=== PATIENT | female | born 1960 | race Caucasian/White ===

== ENCOUNTER 2020-08-18 12:10 | Outpatient (REF) | payer SELFPAY ==
[2020-08-18 13:08] LABS: Cholesterol 203 mg/dL
== END 2020-08-18 12:11 | disposition home or self-care (01) ==
LOC: HO.LNC 12:10
PROVIDERS: Visit Provider Pathology Anatomic Pathology & Clinical Pathology
DX: Z13.89 Encounter for screening for other disorder (principal)
CPT/HCPCS: 82465

== ENCOUNTER 2020-09-11 08:10 | Outpatient (REF) | payer OTHER, SELFPAY ==
--- NOTE | 2020-09-11 08:20 | MM_ITS ---
EXAMINATION: MM SCREENING DIGITAL BREAST TOMOSYNTHESIS, BILATERAL CLINICAL INFORMATION: Screening. Asymptomatic. The lifetime risk of breast cancer based on the Tyrer-Cuzick Model is 17%. COMPARISON: Mammography: 05/14/2019, 03/12/2018 TECHNIQUE: Digital breast tomosynthesis is performed in both the craniocaudal and mediolateral oblique views along with computer-aided detection (CAD). Synthesized 2D images are generated from the tomosynthesis. FINDINGS: There are scattered areas of fibroglandular density (ACR BI-RADS breast composition Category b). There are no significant masses, abnormal calcifications, or other abnormalities. The skin contours are smooth. No significant changes. MM/MM tomosynthesis screening BI IMPRESSION: No mammographic evidence of malignancy. ASSESSMENT: BI-RADS 1: Negative RECOMMENDATION: Routine annual mammography screening. This patient's information was entered into a reminder system with a target due date for their next mammogram.
== END 2020-09-11 08:11 | disposition home or self-care (01) ==
LOC: HO.MAMMO 08:10
PROVIDERS: PCP Internal Medicine; Visit Provider Internal Medicine
DX: Z12.31 Encounter for screening mammogram for malignant neoplasm of breast (principal)
CPT/HCPCS: 77063; 77067

== ENCOUNTER → 2020-11-11 08:39 | Outpatient (BNVA) | payer OTHER, SELFPAY | PROVIDERS: PCP Internal Medicine; Visit Provider Advanced Practice Midwife ==

== ENCOUNTER 2020-11-27 13:49 | Outpatient (REF) | payer OTHER, SELFPAY | END 2020-11-27 13:50 | disposition home or self-care (01) | LOC: HO.LNP 13:49 | PROVIDERS: PCP Internal Medicine; Visit Provider Obstetrics & Gynecology | DX: L81.9 Disorder of pigmentation, unspecified (principal) | CPT/HCPCS: 56605; 88305 ==

== ENCOUNTER 2020-11-27 14:52 | Outpatient (REF) | payer OTHER, SELFPAY | END 2020-12-01 08:54 | disposition home or self-care (01) | LOC: HO.LAB 14:52 | PROVIDERS: Visit Provider Obstetrics & Gynecology | DX: L81.9 Disorder of pigmentation, unspecified (principal); N90.4 Leukoplakia of vulva | CPT/HCPCS: 88305; 88312 ==

== ENCOUNTER → 2020-12-08 11:44 | Outpatient (BNVA) | payer OTHER, SELFPAY | PROVIDERS: PCP Internal Medicine; Visit Provider Obstetrics & Gynecology | DX: L81.9 Disorder of pigmentation, unspecified (principal); N90.4 Leukoplakia of vulva ==

== ENCOUNTER 2020-12-22 07:41 | Outpatient (REF) | payer OTHER, SELFPAY ==
--- NOTE | ~2020-12-22 | XR_ITS ---
EXAMINATION: XR KNEE, LEFT CLINICAL INFORMATION: Pain COMPARISON: None TECHNIQUE: Standing AP view of both knees and lateral and sunrise view of the left knee of the left knee. FINDINGS: Left: Bone alignment is normal. No fracture or dislocation is seen. There is mild joint space narrowing at the medial femoral tibial joint. There is a moderate to large joint effusion. There is an osteophyte at the quadriceps tendon insertion to the patella. Standing AP view of the right knee demonstrates mild medial femoral tibial joint space narrowing. XR/XR knee LT 3V IMPRESSION: Left knee: Mild degenerative changes. Moderate to large joint effusion.
== END 2020-12-22 07:42 | disposition home or self-care (01) ==
LOC: HO.HOSX 07:41
PROVIDERS: Visit Provider Physician Assistant
DX: M25.562 Pain in left knee (principal); M17.12 Unilateral primary osteoarthritis, left knee
CPT/HCPCS: 73562

== ENCOUNTER → 2021-01-12 08:55 | Outpatient (BNVA) | payer OTHER, SELFPAY | PROVIDERS: PCP Internal Medicine; Visit Provider Physician Assistant ==

== ENCOUNTER 2021-01-15 13:23 | Outpatient (REF) | payer OTHER, SELFPAY ==
--- NOTE | ~2021-01-15 | MR_ITS ---
EXAMINATION: MR KNEE WITHOUT CONTRAST, LEFT CLINICAL INFORMATION: Left knee pain, osteoarthritis COMPARISON: Radiographs 12/22/2020 TECHNIQUE: MRI of the knee without contrast was performed using routine sequences on a high-field scanner. FINDINGS: MENISCI: Medial Meniscus: There is an inner margin radial tear of the posterior horn. Lateral Meniscus: Intact LIGAMENTS: Cruciate: Intact Collateral: Intact EXTENSOR MECHANISM: Intact ARTICULAR CARTILAGE/BONE: Patellofemoral Compartment: Mild cartilage thinning and surface irregularity of the medial patellar facet and medial trochlea. Medial Compartment: Moderate cartilage thinning and surface irregularity throughout the weightbearing aspect. Lateral Compartment: Normal JOINT FLUID AND BURSAE: There is a moderate joint effusion. Mild synovitis. MR/MR knee LT wo con IMPRESSION: Inner margin radial tear of the posterior horn of the medial meniscus. Moderate medial compartment and mild patellofemoral compartment osteoarthritis. Moderate joint effusion with mild diffuse synovitis.
== END 2021-01-15 13:24 | disposition home or self-care (01) ==
LOC: HO.MRI 13:23
PROVIDERS: Visit Provider Physician Assistant
DX: M17.12 Unilateral primary osteoarthritis, left knee (principal); M25.562 Pain in left knee
CPT/HCPCS: 73721

== ENCOUNTER → 2021-01-27 08:10 | Outpatient (BNVA) | payer OTHER, SELFPAY | PROVIDERS: Visit Provider Orthopaedic Surgery | DX: M17.12 Unilateral primary osteoarthritis, left knee (principal); S83.282D Other tear of lateral meniscus, current injury, left knee, subsequent encounter | CPT/HCPCS: 20610; J1040 ==

== ENCOUNTER → 2021-02-05 09:43 | Outpatient (BNVA) | payer OTHER, SELFPAY | PROVIDERS: PCP Internal Medicine; Visit Provider Obstetrics & Gynecology ==

== ENCOUNTER 2021-02-11 15:00 | Outpatient (RCR) | payer OTHER, SELFPAY ==
--- NOTE | 2020-12-25 15:50 | MHC.PT.EP ---
[facility] [place] Office [place] Office [place] Office [address] Miesha Elizondo [address] [phone] F: [phone] F: [phone] F: [phone] F: [phone] Physical Therapy Plan of Care Date of Evaluation: 12/25/20 Date of Surgery: NA Diagnosis: Unilateral primary OA of L knee Assessment: 60 year old female referred for unilateral primary OA of L knee . Pt reports of having sudden onset of knee pain about a week back and this was followed by 4 episodes of knee buckling the same day. She had significant swelling 2 days after. She presents with 7/10 pain in L knee with walking, stairs, getting in and out of car and tub, deficits in knee ROM, L LE strength, impaired posture, gait and balance. She would benefit from skilled PT to address the above mentioned impairments to improve tolerance to prolonged sitting, standing, walking, stair climbing, getting in and out of car and tub. Frequency and Duration: The patient will be seen 2/week for 5 weeks Short Term Goals: 1. Pt will have 50% decrease in pain so as to enable her to sit at work in 2 weeks. 2. Pt will have a pain of no more than 4/10 so as to enable her to walk around the house and grocery store in 3 weeks. House Worker Goals: 1. Pt will be independent with HEPs and maintain gains between session in 4 weeks. 2. Pt will return to PLOF- standing, walking, stair climbing and getting in and out of tub without any pain in 5 weeks. Treatment Plan: Modalities to reduce pain, spasms and effusion. Manual therapy to restore motion and function. Therapeutic exercise to improve strength and flexibility. Neuromuscular re-education for posture and balance. Therapeutic activities to return to functional activities of daily living. Electronically signed by: Claire Kauffman, PT, DPT Please sign and return to therapist. Thank you for your referral.
--- NOTE | 2021-02-11 15:59 | MHC.PT.DC ---
[facility] [place] Office [place] Office [place] Office [address] Miesha Elizondo [address] [phone] F: [phone] F: [phone] F: [phone] F: [phone] Physical Therapy Discharge Report Diagnosis: Unilateral primary OA of L knee Date of Surgery: NA Date of Evaluation: 12/25/20 Date of Discharge: 02/11/21 Treatments to Date: 12 Cancellations to Date: 0 No Shows to Date: 0 Discharge Status: Achieved Goals Improved Function Independent with HEP Discharge Summary: Pt appropriate for d/c secondary to I with HEP and improved functional mobility. LEFS improved to 58/80. Electronically signed by: Radha Baltazar PT Please sign and return to therapist. Thank you for your referral.
== END 2021-02-11 16:00 | disposition home or self-care (01) ==
LOC: HO.PT 15:00
PROVIDERS: PCP Internal Medicine; Visit Provider Physician Assistant
DX: M17.12 Unilateral primary osteoarthritis, left knee (principal)
CPT/HCPCS: 97110; 97112; 97140; 97161; 97530

== ENCOUNTER 2021-03-02 11:29 | Outpatient (REF) | payer OTHER, SELFPAY ==
[2021-03-02 12:11] LABS: MANUAL DIFF FLAG NO
[2021-03-02 12:19] LABS: Basophils Absolute Auto 0.1 X10*3/uL (0.0-0.2); Eosinophils Absolute Auto 0.6 X10*3/uL (0.0-0.4); Eosinophils Percent Auto 6.8 % (0-4); Hematocrit 39.4 % (37-47); Hemoglobin 12.9 g/dl (12.0-16.0); Imm Gran Abs Auto 0.03 X10*3/uL (0.00-0.03); Imm Gran Pct Auto 0.3 % (0.0-0.4); Lymphocytes Absolute Auto 1.9 X10*3/uL (1.2-4.9); Mean Corpuscular HGB Conc 32.7 g/dl (31.0-35.0); Mean Corpuscular Hemoglobin 28.8 pg (27.0-33.0); Mean Corpuscular Volume 87.9 fL (80-98); Mean Platelet Volume 9.9 fL (9.4-12.3); Monocytes Absolute Auto 0.8 X10*3/uL (0.1-1.2); Monocytes Percent Auto 8.6 % (2-11); Neutrophils Absolute Auto 5.4 X10*3/uL (2.0-8.3); Neutrophils Percent Auto 61.3 % (45-73); Platelet Count 314 X10*3/uL (160-400); Red Blood Count 4.48 X10*6/uL (4.20-5.50); Red Cell Distribution Width 13.3 % (11.0-16.0); White Blood Count 8.8 X10*3/uL (4.8-10.8)
[2021-03-02 13:51] LABS: Alanine Aminotransferase 22 U/L (0-31); Albumin Level 4.3 g/dL (3.5-5.0); Alkaline Phosphatase 103 U/L (39-117); Anion Gap 11 (12-20); Aspartate Amino Transferase 19 U/L (5-31); Bilirubin Total 0.4 mg/dL (0.0-1.0); Blood Urea Nitrogen 15 mg/dL (9-16); Calcium 9.9 mg/dL (8.4-10.2); Carbon Dioxide 29 mmol/L (22-29); Chloride 104 mmol/L (96-108); Estimated Glomerular Filt Rate > 60; Glucose Random 86 mg/dL (60-115); Potassium 4.1 mmol/L (3.3-5.1); Sodium 140 mmol/L (135-145); Total Protein 6.5 g/dL (6.5-8.0)
== END 2021-03-02 11:30 | disposition home or self-care (01) ==
LOC: HO.LAB 11:29
PROVIDERS: PCP Internal Medicine; Visit Provider Internal Medicine
DX: I10 Essential (primary) hypertension (principal); M19.90 Unspecified osteoarthritis, unspecified site; M25.511 Pain in right shoulder
CPT/HCPCS: 36415; 80053; 85025

== ENCOUNTER 2021-03-03 09:16 | Outpatient (REF) | payer OTHER, SELFPAY ==
--- NOTE | ~2021-03-03 | XR_ITS ---
EXAMINATION: XR SHOULDER, RIGHT CLINICAL INFORMATION: Pain COMPARISON: None TECHNIQUE: AP external rotation, Grashey, scapular Y, and axillary views of the right shoulder. FINDINGS: The glenohumeral joint space is normal. There is mild loss of right AC joint with inferior periarticular spurring. No abnormal loose bodies or calcification visualized. The soft tissues are normal. XR/XR shoulder RT min 2V IMPRESSION: Mild periarticular spurring right AC joint. The glenohumeral joint space is maintained normal. No acute fracture seen. There are no loose bodies.
== END 2021-03-03 09:17 | disposition home or self-care (01) ==
LOC: HO.HOSX 09:16
PROVIDERS: Visit Provider Orthopaedic Surgery
DX: M75.41 Impingement syndrome of right shoulder (principal)
CPT/HCPCS: 20610; 73030; J1040

== ENCOUNTER → 2021-04-27 08:06 | Outpatient (BNVA) | payer OTHER, SELFPAY | PROVIDERS: Visit Provider Orthopaedic Surgery ==

== ENCOUNTER 2021-04-29 15:00 | Outpatient (RCR) | payer OTHER, SELFPAY ==
--- NOTE | 2021-03-25 15:35 | MHC.PT.EP ---
[facility] [place] Office [place] Office [place] Office [address] Miesha Elizondo [address] [phone] F: [phone] F: [phone] F: [phone] F: [phone] Physical Therapy Plan of Care Date of Evaluation: Date of Surgery: Diagnosis: impingement syndrome R shoulder Assessment: Pt is a 60 y/o F referred for impingement syndrome of R shoulder. Pt complains of increased R shoulder pain into the arm stopping above the elbow with numbness in R digits 2-5 over last 2 days causing difficulty with sitting in hard chairs, standing, typing on computer, driving, and sleeping. Examination shows limited cervical ROM, TTP R upper trap and scapular muscles, and numbness and tingling in R digits 2-5 especially with shoulder overhead motion and cervical R lateral flexion/rotation. Further assessment of shoulder next visit once inflammation and tenderness subside. Educated pt on ice massage, use of pain creams (IcyHot, etc), and posture. Recommend PT 2x/week for 5 weeks to address impairments, implement HEP, and restore functional mobility. Frequency and Duration: The patient will be seen 2x/week for 5 weeks Short Term Goals: 2 weeks: 1. I with HEP 2. Pt will report decrease in numbness/tingling by 50% in R digits during work 3. Pt will increase cervical ROM by >5 degrees in all directions Care Home Goals: 5 weeks: 1. I with HEP and self-management of sx 2. Pt will be able to work/fulfill work duties for >1 hour with <3/10 pain 3. Pt will be able to sleep throughout night with <3/10 pain Treatment Plan: Modalities to reduce pain, spasms and effusion. Manual therapy to restore motion and function. Therapeutic exercise to improve strength and flexibility. Neuromuscular re-education for posture and balance. Therapeutic activities to return to functional activities of daily living. Electronically signed by: Radha Baltazar PT Please sign and return to therapist. Thank you for your referral.
--- NOTE | 2021-06-09 11:37 | MHC.PT.DC ---
[facility] [place] Office [place] Office [place] Office [address] Miesha Elizondo [address] [phone] F: [phone] F: [phone] F: [phone] F: [phone] Physical Therapy Discharge Report Diagnosis: impingement syndrome R shoulder Date of Surgery: Date of Evaluation: 03/25/21 Date of Discharge: 06/09/21 Treatments to Date: 9 Cancellations to Date: 0 No Shows to Date: 0 Discharge Status: Independent with HEP Discharge Summary: Pt did not f/u with further visits due to other health issues at this time. Will d/c chart. Electronically signed by: Radha Baltazar PT Please sign and return to therapist. Thank you for your referral.
== END 2021-06-09 11:37 | disposition home or self-care (01) ==
LOC: HO.PT 15:00
PROVIDERS: PCP Internal Medicine; Visit Provider Orthopaedic Surgery
DX: M75.41 Impingement syndrome of right shoulder (principal)
CPT/HCPCS: 97014; 97110; 97140; 97161

== ENCOUNTER 2021-05-13 05:58 | Day surgery (SDC) | payer OTHER, SELFPAY ==
[2021-04-28 14:32] VITALS: BMI 31.1
[2021-04-29 08:26] VITALS: BMI 31.1
--- NOTE | 2021-05-12 08:10 | HO.ANESPROP2 ---
Documented by User: Mary Vasquez NP 05/12/21 08:11 HPI - Anesthesia Eval Consult details Narrative: 60yo F for Left Knee Arthroscopy PMFSH Active Problems Active Problems: All Active Problems (Updated 04/29/21 @ 08:34 by Eloise Hsokins RN) Lichen sclerosus (Acute) Knee pain (Acute) Osteoarthritis of left knee (Acute) Primary osteoarthritis of left knee (Acute) Tear of lateral meniscus of left knee (Acute) Rotator cuff impingement syndrome of right shoulder (Acute) Past Medical History Medical History COVID-19 vaccine series completed Family history of complication of anesthesia Hypertension Infection of tooth Osteoarthritis Family History Family History Mother Colon cancer History of breast cancer Father Hypertension CVD (cardiovascular disease) Stroke Surgical History Surgical History H/O colonoscopy History of back surgery History of fusion of cervical spine Hx of tonsillectomy Hx of tubal ligation Social History Social History Are you a primary healthcare administrative assistant to a significant other at home: No Do you presently have visiting nurse or other home services: No Alcohol intake: current Alcohol intake frequency: 0-2 drinks per day Patient Tobacco Use Status: Former Tobacco user Quit Date: 2014 Tobacco use type: Cigarette Use of substances other than those prescribed or required for medical reasons: No Have you been hit, kicked, punched, or otherwise hurt by someone within the past year? If so, by whom?: No Are you DNR?: No Advance Directives: No (pt states on file [facility]-do not see one in current or old system) Advance Directives Information Provided: Yes (pt states is ) Advance Directives on File: No Recently lost weight without trying: No Eating poorly because of decreased appetite: No Nutrition Risks: No Nutritional Risk Patient : No Poor oral hygiene: No (current infection bilat.lower back teeth-antibiotic started 04/29/21) 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al status: employed 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: [employer] [facility] employee Gender identity: female Meds Allergies Allergy/AdvReac Type Severity Reaction Status Date / Time morphine [Morphine] AdvReac Intermediate NAUSEA Verified 04/27/21 08:16 Home Medications Medication Instructions Recorded Confirmed Last Taken Type hydrochlorothiazide 25 mg tablet 25 mg PO DAILY 11/11/20 04/28/21 Unknown History metoprolol succinate 100 mg 100 mg PO DAILY 11/11/20 05/13/21 05/13/21 04:00 History tablet,extended release 24 hr quinapril 40 mg tablet 40 mg PO DAILY 11/11/20 04/28/21 Unknown History Exam Exam Date and Time: May 12, 2021 0810 Height,Weight and Vital Signs: Height 5 ft 6 in Weight 87.543 kg Assessment and Plan Assessment Anesthesia Assessment: Chart Reviewed Documented by User: Vik Arcos MD 05/13/21 07:35 [facility] Past Medical History Medical History COVID-19 vaccine series completed Family history of complication of anesthesia Hypertension Infection of tooth Osteoarthritis Family History Family History Mother Colon cancer History of breast cancer Father Hypertension CVD (cardiovascular disease) Stroke Family history of problems with anesthesia: No Surgical History Surgical History H/O colonoscopy History of back surgery History of fusion of cervical spine Hx of tonsillectomy Hx of tubal ligation History of Problems with Anesthesia: No Social History Social History Are you a primary healthcare administrative assistant to a significant other at home: No Do you presently have visiting nurse or other home services: No Alcohol intake: current Alcohol intake frequency: 0-2 drinks per day Patient Tobacco Use Status: Former Tobacco user Quit Date: 2014 Tobacco use type: Cigarette Use of substances other than those prescribed or required for medical reasons: No Have you been hit, kicked, punched, or otherwise hurt by someone within the past year? If so, by whom?: No Are you DNR?: No Advance Directives: No (pt states on file [facility]-do not see one in current or old system) Advance Directives Information Provided: Yes (pt states is ) Advance Directives on File: No Recently lost weight without trying: No Eating poorly because of decreased appetite: No Nutrition Risks: No Nutritional Risk Patient : No Poor oral hygiene: No (current infection bilat.lower back teeth-antibiotic started 04/29/21) 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al status: employed 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: [employer] [facility] employee Gender identity: female Meds Allergies Allergy/AdvReac Type Severity Reaction Status Date / Time morphine [Morphine] AdvReac Intermediate NAUSEA Verified 04/27/21 08:16 Home Medications Medication Instructions Recorded Confirmed Last Taken Type hydrochlorothiazide 25 mg tablet 25 mg PO DAILY 11/11/20 04/28/21 Unknown History metoprolol succinate 100 mg 100 mg PO DAILY 11/11/20 05/13/21 05/13/21 04:00 History tablet,extended release 24 hr quinapril 40 mg tablet 40 mg PO DAILY 11/11/20 04/28/21 Unknown History Exam Airway Mallampati Class: II TM Dist: >3cm Neck ROM: Full Loose/Missing/Broken Teeth: No Heart: RRR Assessment and Plan Assessment Anesthesia Assessment: Anesthesia Plan Discussed Final Anesthetic Review Family History of Problems with Anesthesia: No History of Problems with Anesthesia: No NPO: Yes ASA Class: II Final Preanesthetic Review: No Changes in Pt Med Stat, Meds/Allgs Chart Reviewed, Consent Obtained/Reviewed and Anes Risks/Benef Reviewed Patient Risk: Low Procedure Risk: Low Anesthetic Plan Anesthetic Plan: GA Disposition: Standard PACU
[2021-05-13 06:18] VITALS: BP 162/93; PULSE 70; RESP 16; TEMP 37.3; O2SAT 96
[2021-05-13] MEDS: Lactated Ringers 1,000 ML 100 ML IVCONT (06:36)
--- NOTE | 2021-05-13 07:40 | MHC.SHP ---
Pre-Procedural Eval Section A Date of Service: 05/13/21 The patient is an INPATIENT: No Changes since office visit: No Cold of Flu in the past 2 weeks, No New Medical Problems, No Changes in Medication and No Patient answered all questions The History & Physical has been completed within 30 days and I have reviewed it.: Yes Section B Chief Complaint: tear of the lateral meniscus Allergies: Allergies Allergy/AdvReac Type Severity Reaction Status Date / Time morphine [Morphine] AdvReac Intermediate NAUSEA Verified 04/27/21 08:16 Plan I have reviewed the history and physical and performed a pertinent physical examination on my patient. No changes have occurred unless specified.
[2021-05-13 08:09] VITALS: BP 164/86; PULSE 68; RESP 16; TEMP 36.2; O2SAT 99
[2021-05-13 08:14] VITALS: BP 155/74; BP 155/85; PULSE 68; PULSE 69; RESP 16; TEMP 36.2; O2SAT 97
[2021-05-13 08:19] VITALS: BP 155/74; PULSE 66; RESP 16; TEMP 36.2; O2SAT 96
[2021-05-13 08:24] VITALS: BP 159/75; PULSE 60; RESP 16; TEMP 36.2; O2SAT 98
[2021-05-13] MEDS: Acetaminophen 325 MG TABLET 975 MG PO (08:30)
[2021-05-13 08:40] VITALS: BP 161/75; PULSE 58; RESP 16; TEMP 36.3; O2SAT 98
--- NOTE | 2021-05-13 10:26 | W.PM.OPN ---
Operative Note Operative Note Date of Service: 05/13/21 Narrative: ARTHROSCOPIC SURGERY NOTE SURGEON: Dr Venessa Mejias) Instrum AUDIENCE DEVELOPMENT MANAGER: PREOP DIAGNOSIS: Osteoarthritis with medial meniscal tear left knee POSTOP DIAGNOSIS: Same OPERATIVE PROCEDURE: Partial medial meniscectomy left knee. Debridement anterior compartment left knee CLINICAL NOTE: This lady has had ongoing problems with pain and discomfort involving her left knee. She has failed nonoperative management. She had evidence of a meniscus tear as well as arthritis but because she failed nonoperative management after explaining the risks, benefits, and alternatives of the surgery and answering all her questions it was mutually agreed upon to carry out the following procedure MOTION: Full range of motion STABILITY: Cruciate and collateral ligaments intact OPERATIVE DETAILS PREPARATION: GA, STANDARD TECHNIQUE, tourniquet E to 300 mm of mercury for 10 minutes SURGICAL TIME-OUT: Patient identified; procedure confirmed; site confirmed. Medical and allergy history reviewed. No preoperative antibiotics. No DVT prophylaxis. All other items discussed and agreed upon. INCISIONS: Superolateral, inferolateral, inferomedial stab incisions SYNOVIUM: Normal SYNOVIAL FLUID: Clear MEDIAL COMPARTMENT: There was some complex tearing of the posterior horn medial meniscus. This was resected using a combination of handheld cutters and power shaver to stable meniscus. There was a large area of grade 3 injury of for the weight-bearing surface of the femur. The tibia demonstrate grade 3 with areas of grade 4 injury. INTERCONDYLAR NOTCH: ACL visualized palpated and intact. PCL palpated and intact. LATERAL COMPARTMENT: The lateral meniscus, tibial and femoral articular surfaces, and popliteus tendon were all stable and intact. ANTERIOR COMPARTMENT: Medial and lateral gutters were clear. Suprapatellar pouch was clear. The patella had some grade 3 injury through the lateral facet which was debrided. The femoral sulcus was intact CLOSURE: 30 cc of 0.25% Marcaine with epinephrine injected in the knee. Steri-Strips and sterile dressing then applied. RECOMMENDATIONS: 1)Restore motion strength 2)Resume activities as tolerated 3)Discharge today with prescription for analgesic 4)Follow up in the office in 10-14 days
== END 2021-05-13 09:20 | disposition home or self-care (01) ==
PROVIDERS: PCP Internal Medicine; Visit Provider Orthopaedic Surgery
PROC: (CPT 29870; principal; 2021-05-13 07:30)
DX: S83.232A Complex tear of medial meniscus, current injury, left knee, initial encounter (principal); M17.12 Unilateral primary osteoarthritis, left knee; X58.XXXA Exposure to other specified factors, initial encounter; Y93.9 Activity, unspecified; Y92.9 Unspecified place or not applicable; Y99.8 Other external cause status; I10 Essential (primary) hypertension; Z79.899 Other long term (current) drug therapy; Z88.8 Allergy status to other drugs, medicaments and biological substances; Z98.1 Arthrodesis status; Z87.891 Personal history of nicotine dependence
CPT/HCPCS: 29881; J0171; J1100; J2250; J2405; J3010

== ENCOUNTER → 2021-06-03 07:55 | Outpatient (BNVA) | payer OTHER, SELFPAY | PROVIDERS: PCP Internal Medicine; Visit Provider Physician Assistant ==

== ENCOUNTER → 2021-07-15 13:24 | Outpatient (BNVA) | payer OTHER, SELFPAY | PROVIDERS: Visit Provider Physician Assistant | DX: M17.12 Unilateral primary osteoarthritis, left knee (principal) | CPT/HCPCS: J1040 ==

== ENCOUNTER 2021-08-05 15:00 | Outpatient (RCR) | payer OTHER, SELFPAY ==
--- NOTE | 2021-06-10 10:43 | MHC.PT.EP ---
[facility] [place] Office [place] Office [place] Office [address] Miesha Elizondo [address] [phone] F: [phone] F: [phone] F: [phone] F: [phone] Physical Therapy Plan of Care Date of Evaluation: Date of Surgery: 05/13/21 Diagnosis: s/p L partial posterior horn medial meniscectomy Assessment: pt presents to physical therapy s/p partial medial meniscectomy and patellar debridement on 05/13/21. pt presents to physical therapy with pain, decreased range of motion, decreased strength, impaired functional mobility, impaired postural awareness, and gait deviations. pt is a good candidate for skilled PT due to age, potential remediation of impairments, typical disease/condition progression and prognosis, comorbidities, and motivation. pt would benefit from tailored strengthening and stretching exercise program, functional training, gait training, postural re-training, neuromuscular re-education, modalities as needed for pain, equipment safety demonstration. Frequency and Duration: The patient will be seen 2x/wk for 5 wks Short Term Goals: pt will be I w/ HEP to promote self-management of condition. pt will improve L knee extension to 0 degrees to normalize gait impairments on even ground. Paste Mixer Goals: pt will report a statistically significant improvement in self-reported outcome measure, LEFI, to promote return to PLOF. pt will report <1/10 L knee pain w/ squatting to pickle pumper objects off the floor. Treatment Plan: Modalities to reduce pain, spasms and effusion. Manual therapy to restore motion and function. Therapeutic exercise to improve strength and flexibility. Neuromuscular re-education for posture and balance. Therapeutic activities to return to functional activities of daily living. Electronically signed by: Lea Lakhani PT, DPT Please sign and return to therapist. Thank you for your referral.
--- NOTE | 2021-08-09 14:16 | MHC.PT.DC ---
[facility] [place] Office [place] Office [place] Office [address] Miesha Elizondo 140 [facility] [phone] F: [phone] F: [phone] F: [phone] F: [phone] Physical Therapy Discharge Report Diagnosis: s/p L partial posterior horn medial meniscectomy Date of Surgery: 05/13/21 Date of Evaluation: 06/10/21 Date of Discharge: 08/09/21 Treatments to Date: 11 Cancellations to Date: 5 No Shows to Date: 0 Discharge Status: Improved Function Independent with HEP Discharge Summary: The patient has not been able to progress in therapy secondary to fluctuations in pain and tolerance for activities. She has a program for the days she is feeling good and the days she is not feeling good. She has fantastic days and awful days. She feels her pain is mostly joint related as stretches for the quad and hamstrings do not improve the stiffness sensation. Ambulating longer distances is helpful in reducing her stiffness. She has a recumbent bike at home she uses to maintain range and to promote joint fluid circulation. It sounds related to the joint in nature. She does have a history of mild OA. She is independent with her home exercise program. She has not been able to make any substantial progress in the past couple weeks here in physical therapy. She is discharged to her home exercise program. Electronically signed by: Lea Lakhani PT, DPT Please sign and return to therapist. Thank you for your referral.
== END 2021-08-09 14:16 | disposition home or self-care (01) ==
LOC: HO.PT 15:00
PROVIDERS: PCP Internal Medicine; Visit Provider Physician Assistant
DX: S83.282A Other tear of lateral meniscus, current injury, left knee, initial encounter (principal)
CPT/HCPCS: 97110; 97112; 97140; 97161; 97530

== ENCOUNTER 2021-08-18 06:55 | Outpatient (REF) | payer OTHER, SELFPAY ==
[2021-08-18 06:59] LABS: MANUAL DIFF FLAG NO
[2021-08-18 07:23] LABS: Basophils Absolute Auto 0.1 X10*3/uL (0.0-0.2); Basophils Percent Auto 0.9 % (0-2); Eosinophils Absolute Auto 0.3 X10*3/uL (0.0-0.4); Eosinophils Percent Auto 3.2 % (0-4); Hematocrit 43.1 % (37.0-47.0); Hemoglobin 14.1 g/dl (12.0-16.0); Imm Gran Abs Auto 0.02 X10*3/uL (0.00-0.03); Imm Gran Pct Auto 0.2 % (0.0-0.4); Lymphocytes Percent Auto 22.9 % (20-40); Mean Corpuscular HGB Conc 32.7 g/dl (31.0-35.0); Mean Corpuscular Hemoglobin 29.2 pg (27.0-33.0); Mean Corpuscular Volume 89.2 fL (80.0-98.0); Mean Platelet Volume 9.5 fL (9.4-12.3); Monocytes Absolute Auto 0.7 X10*3/uL (0.1-1.2); Monocytes Percent Auto 8.1 % (2-11); Neutrophils Absolute Auto 5.5 x10*3/uL (2.0-8.3); Neutrophils Percent Auto 64.7 % (45-73); Platelet Count 302 X10*3/uL (160-400); Red Blood Count 4.83 X10*6/uL (4.20-5.50); White Blood Count 8.6 X10*3/uL (4.8-10.8)
[2021-08-18 07:44] LABS: Alanine Aminotransferase 25 U/L (0-31); Albumin Level 4.4 g/dL (3.5-5.0); Alkaline Phosphatase 107 U/L (39-117); Anion Gap 15 (12-20); Aspartate Amino Transferase 19 U/L (5-31); Bilirubin Total 0.3 mg/dL (0.0-1.0); Blood Urea Nitrogen 14 mg/dL (9-16); Calcium 9.9 mg/dL (8.4-10.2); Carbon Dioxide 27 mmol/L (22-29); Chloride 102 mmol/L (96-108); Estimated Glomerular Filt Rate > 60; Glucose Random 102 mg/dL (60-115); Sodium 140 mmol/L (135-145); Total Protein 7.1 g/dL (6.5-8.0)
== END 2021-08-18 06:56 | disposition home or self-care (01) ==
LOC: HO.LAB 06:55
PROVIDERS: PCP Internal Medicine; Visit Provider Internal Medicine
DX: I10 Essential (primary) hypertension (principal); K21.9 Gastro-esophageal reflux disease without esophagitis
CPT/HCPCS: 36415; 80053; 85025

== ENCOUNTER → 2021-08-23 14:31 | Outpatient (BNVA) | payer OTHER, SELFPAY | PROVIDERS: PCP Internal Medicine; Visit Provider Physician Assistant ==

== ENCOUNTER 2021-11-04 08:11 | Outpatient (REF) | payer OTHER, SELFPAY ==
--- NOTE | ~2021-11-04 | MM_ITS ---
EXAMINATION: MM SCREENING DIGITAL BREAST TOMOSYNTHESIS, BILATERAL CLINICAL INFORMATION: Screening. Asymptomatic. The lifetime risk of breast cancer based on the Tyrer-Cuzick Model is 17.4%. COMPARISON: Mammography: September 11, 2020 and studies dating back to October 11, 2013 TECHNIQUE: Digital breast tomosynthesis is performed in both the craniocaudal and mediolateral oblique views along with computer-aided detection (CAD). Synthesized 2D images are generated from the tomosynthesis. FINDINGS: The breasts are heterogeneously dense, which may obscure small masses (ACR BI-RADS breast composition Category c). There are no significant masses, abnormal calcifications, or other abnormalities. MM/MM tomosynthesis screening BI IMPRESSION: There are no significant changes from prior study. ASSESSMENT: BI-RADS 1: Negative RECOMMENDATION: Routine annual mammography screening. This patient's information was entered into a reminder system with a target due date for their next mammogram.
== END 2021-11-04 08:12 | disposition home or self-care (01) ==
LOC: HO.MAMMO 08:11
PROVIDERS: PCP Internal Medicine; Visit Provider Internal Medicine
DX: Z12.31 Encounter for screening mammogram for malignant neoplasm of breast (principal)
CPT/HCPCS: 77063; 77067

== ENCOUNTER → 2021-11-17 08:41 | Outpatient (BNVA) | payer OTHER, SELFPAY | PROVIDERS: PCP Internal Medicine; Visit Provider Advanced Practice Midwife ==

== ENCOUNTER 2022-05-05 06:54 | Emergency (ER) | payer OTHER, SELFPAY ==
--- NOTE | ~2022-05-05 | XR_ITS ---
EXAMINATION: XR CHEST CLINICAL INFORMATION: Chest pain. COMPARISON: Most recent chest radiograph dated 07/03/2019. TECHNIQUE: Frontal view of the chest was obtained. FINDINGS: The lungs are clear. The cardiomediastinal silhouette is normal in size. There is no pleural effusion or pneumothorax. No acute osseous abnormality. XR/XR chest 1V IMPRESSION: No acute cardiopulmonary findings.
[2022-05-05 07:15] VITALS: BP 162/83; PULSE 74; RESP 16; TEMP 36.3; O2SAT 98; BMI 30.7
--- NOTE | 2022-05-05 07:26 | ED.CHESTPAIN ---
HPI - Chest Pain General Chief Complaint: Chest Pain Stated Complaint: chest pain Time Seen by Provider: 05/05/22 07:19 Source: patient Mode of arrival: ambulatory Limitations: no limitations History of Present Illness HPI narrative: 61 yo female hx of HTN, COVID booster 3 weeks ago comes in with c/o chest pressure with no other symptoms starting 2 hours ago. She took motrin without relief. Has had stress tests in the past without findings. She had PT today but didn't feel like she could make it. complaint: chest pain Onset (ago): hour(s) (2) Timing of current episode: constant Prior episodes: Yes Onset: during rest Pain location: left chest Pain radiation: none Severity: moderate Quality: other (pressure) Relieving factors: nothing Exacerbating factors: nothing Context: other (had vaccine recently ) Treatment prior to arrival: other (motrin) Related Data Home Medications Medication Instructions Recorded Confirmed hydrochlorothiazide 25 mg tablet 25 mg PO DAILY 11/11/20 04/28/21 metoprolol succinate 100 mg 100 mg PO DAILY 11/11/20 05/13/21 tablet,extended release 24 hr quinapril 40 mg tablet 40 mg PO DAILY 11/11/20 04/28/21 omeprazole 10 mg capsule,delayed 10 mg PO DAILY 08/23/21 release Previous Rx's Medication Instructions Recorded clobetasol 0.05 % topical ointment 1 appl topical DAILY #45 grams 12/08/20 hydrocortisone valerate 0.2 % 1 appl topical BEDTIME PRN itching 11/17/21 topical ointment #45 grams cyclobenzaprine 10 mg tablet 10 mg PO TID PRN muscle spasm #14 05/05/22 tabs Allergies Allergy/AdvReac Type Severity Reaction Status Date / Time morphine [Morphine] AdvReac Intermediate NAUSEA Verified 11/17/21 08:56 Review of Systems Review of Systems: Constitutional : No Weight loss, No Fever, No Chills ENT/Mouth : No sore throat, No Rhinorrhea Eyes: No Eye Pain, No Swelling Cardiovascular : pos Chest Pain, no SOB, no Dyspnea on Exertion, No Orthopnea, No Edema, No Palpitations Respiratory : No Cough, No Sputum Gastrointestinal : no Nausea, No Vomiting, No Diarrhea, No abdominal Pain, No Hematochezia, No Melena Genitourinary : No Dysuria, No Urinary Frequency Musculoskeletal : No joint pain, No Myalgias, No Joint Swelling Skin : No Skin Lesions, No rash Neuro : No Weakness, No Numbness, No Dizziness, No Headache Psych : No Anxiety/Panic, No Depression Heme/Lymph: No Bruising, No Lymphadenopathy Endocrine : No Polyuria, No Polydipsia All other systems reviewed and are negative [facility] Past Medical History Attestation statement: The following information was validated with the patient. Medical History COVID-19 vaccine series completed Family history of complication of anesthesia Hypertension Infection of tooth Lichen sclerosus of vulva Osteoarthritis Surgical History H/O arthroscopic knee surgery H/O colonoscopy History of back surgery History of fusion of cervical spine Hx of tonsillectomy Hx of tubal ligation Family History Family History Mother Colon cancer History of breast cancer Father Hypertension CVD (cardiovascular disease) Stroke Social History Social History Are you a primary critical care specialist to a significant other at home: No Do you presently have visiting nurse or other home services: No Alcohol intake: never Patient Tobacco Use Status: Former Tobacco user Quit Date: 2014 Tobacco use type: Cigarette Use of substances other than those prescribed or required for medical reasons: No Advance Directives: No 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al status: employed 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 Oriented X3. No acute distress. Eyes: Pupils equal, round and reactive to light. ENT: Pharynx normal. Neck: Normal inspection. Neck supple. CVS: Normal heart rate and rhythm. Pulses normal. Respiratory: No respiratory distress. Breath sounds normal. Abdomen: Soft and non-tender. Skin: Skin warm and dry. Normal skin color. Normal skin turgor. Extremities: No lower extremity edema. No calf ttp Neuro: Oriented X 3. No motor deficit. No sensory deficit. Course Course Course Narrative: no relief with nitro ddimer negative trop negative x 2, CXR negative, no relief with nitro MDM - Chest Pain MDM Narrative Medical decision making narrative: 61 yo female with HTN here with c/o chest pressure for 2 hours at this time will need troponin x 2, EKG, CXR, ddimer - seems atypical for ACS but does have HTN, has no signs of DVT and it is not pleuritic in nature PE seems unlikely. Distal pulses bounding doubt dissection. Lab Data Result diagrams: 05/05/22 07:44 05/05/22 07:44 Labs: Lab Results 05/05/22 05/05/22 05/05/22 Range/Units 07:44 07:44 07:44 WBC 6.6 (4.8-10.8) X10*3/uL RBC 4.38 (4.20-5.50) X10*6/uL Hgb 12.0 (12.0-16.0) g/dl Hct 36.7 L (37.0-47.0) % MCV 83.8 (80.0-98.0) fL MCH 27.4 (27.0-33.0) pg MCHC 32.7 (31.0-35.0) g/dl RDW 14.2 (11.0-16.0) % Plt Count 320 (160-400) X10*3/uL MPV 9.4 (9.4-12.3) fL Immature Gran % (Auto) 0.5 H (0.0-0.4) % Neut % (Auto) 61.3 (45-73) % Lymph % (Auto) 23.2 (20-40) % Sunflower % (Auto) 8.6 (2-11) % Eos % (Auto) 5.3 H (0-4) % Baso % (Auto) 1.1 (0-2) % Lymph # (Auto) 1.5 (1.2-4.9) X10*3/uL Sunflower # (Auto) 0.6 (0.1-1.2) X10*3/uL Eos # (Auto) 0.4 (0.0-0.4) X10*3/uL Baso # (Auto) 0.1 (0.0-0.2) X10*3/uL Abs Immat Gran (auto) 0.03 (0.00-0.03) X10*3/uL Absolute Neuts (auto) 4.0 (2.0-8.3) x10*3/uL Absolute Nucleated RBC 0.000 (0.0-0.012) X10*3/uL Nucleated RBC % (auto) 0.0 (0.0-0.2) /100WBC D-Dimer High Sensitivty 177 NG/ML Sodium 138 (135-145) mmol/L Potassium 4.1 (3.3-5.1) mmol/L Chloride 101 (96-108) mmol/L Carbon Dioxide 26 (22-29) mmol/L Anion Gap 15 (12-20) BUN 13 (9-16) mg/dL Creatinine 0.81 (0.5-1.4) mg/dL Estim Creat Clear Calc 81.6 Estimated GFR > 60 Random Glucose 97 (60-115) mg/dL Calcium 9.3 D (8.4-10.2) mg/dL Magnesium 2.0 (1.6-2.6) mg/dL Total Bilirubin 0.3 (0.0-1.0) mg/dL Direct Bilirubin 0.2 (0.0-0.5) mg/dL AST 22 (5-31) U/L ALT 20 (0-31) U/L Alkaline Phosphatase 108 (39-117) U/L Troponin I High Sens (<3.5-17.0) ng/L C-Reactive Protein 0.34 (< or = 0.50) mg/dL Total Protein 6.6 (6.5-8.0) g/dL Albumin 4.1 (3.5-5.0) g/dL 05/05/22 05/05/22 Range/Units 07:44 10:24 WBC (4.8-10.8) X10*3/uL RBC (4.20-5.50) X10*6/uL Hgb (12.0-16.0) g/dl Hct (37.0-47.0) % MCV (80.0-98.0) fL MCH (27.0-33.0) pg MCHC (31.0-35.0) g/dl RDW (11.0-16.0) % Plt Count (160-400) X10*3/uL MPV (9.4-12.3) fL Immature Gran % (Auto) (0.0-0.4) % Neut % (Auto) (45-73) % Lymph % (Auto) (20-40) % Sunflower % (Auto) (2-11) % Eos % (Auto) (0-4) % Baso % (Auto) (0-2) % Lymph # (Auto) (1.2-4.9) X10*3/uL Sunflower # (Auto) (0.1-1.2) X10*3/uL Eos # (Auto) (0.0-0.4) X10*3/uL Baso # (Auto) (0.0-0.2) X10*3/uL Abs Immat Gran (auto) (0.00-0.03) X10*3/uL Absolute Neuts (auto) (2.0-8.3) x10*3/uL Absolute Nucleated RBC (0.0-0.012) X10*3/uL Nucleated RBC % (auto) (0.0-0.2) /100WBC D-Dimer High Sensitivty NG/ML Sodium (135-145) mmol/L Potassium (3.3-5.1) mmol/L Chloride (96-108) mmol/L Carbon Dioxide (22-29) mmol/L Anion Gap (12-20) BUN (9-16) mg/dL Creatinine (0.5-1.4) mg/dL Estim Creat Clear Calc Estimated GFR Random Glucose (60-115) mg/dL Calcium (8.4-10.2) mg/dL Magnesium (1.6-2.6) mg/dL Total Bilirubin (0.0-1.0) mg/dL Direct Bilirubin (0.0-0.5) mg/dL AST (5-31) U/L ALT (0-31) U/L Alkaline Phosphatase (39-117) U/L Troponin I High Sens < 3.5 < 3.5 (<3.5-17.0) ng/L C-Reactive Protein (< or = 0.50) mg/dL Total Protein (6.5-8.0) g/dL Albumin (3.5-5.0) g/dL ECG Data ECG #1: Attestation: I personally reviewed and interpreted this ECG as follows: ECG interpretation date: 05/05/22 ECG interpretation time: 07:27 Interpretation: Rate: 85 Rhythm: NSR with sinus arrythmia [place]: left Normal P waves. Normal EVANS. Normal QRS complex. ST T wave : normal no ISH qTC: normal prior studies: no acute ischemia The study has been interpreted contemporaneously by me. Scores Heart Score History: -0- slightly suspicious ECG: -1- non specific repolarization disturbance Age: -1- >45 - <65 Risk factory: -1- 1 or 2 risk factors Troponin: -0- < or = normal limit Score: 3 Risk: 1.7% Discharge Plan Discharge Clinical Impression: Atypical chest pain Patient Disposition: Home, Self-Care Instructions: Chest Pain (ED) Additional Instructions: return to ED for any worsening symptoms or concerns please call your doctor and follow up with outpatient stress test negative test of heart x 2, CXR normal, ddimer for blood clots negative Prescriptions: New cyclobenzaprine 10 mg tablet 10 mg PO TID PRN (Reason: muscle spasm) Qty: 14 0RF No Action metoprolol succinate 100 mg tablet extended release 24 hr 100 mg PO DAILY quinapril 40 mg tablet 40 mg PO DAILY hydrochlorothiazide 25 mg tablet 25 mg PO DAILY clobetasol 0.05 % ointment 1 appl topical DAILY Qty: 45 11RF hydrocortisone valerate 0.2 % ointment 1 appl topical BEDTIME PRN (Reason: itching) Qty: 45 1RF Rx Instructions: use 1-2 times a week as directed omeprazole 10 mg capsule,delayed release(DR/EC) 10 mg PO DAILY Referrals: Les Wills MD [Primary Care Provider] - 2 days (outpatient stress test) Stand Alone Forms: Work/School Release
[2022-05-05 07:45] VITALS: BP 147/78; PULSE 69; RESP 18; O2SAT 97
[2022-05-05 07:55] LABS: Basophils Absolute Auto 0.1 X10*3/uL (0.0-0.2); Basophils Percent Auto 1.1 % (0-2); Eosinophils Absolute Auto 0.4 X10*3/uL (0.0-0.4); Eosinophils Percent Auto 5.3 % (0-4); Hematocrit 36.7 % (37.0-47.0); Imm Gran Abs Auto 0.03 X10*3/uL (0.00-0.03); Imm Gran Pct Auto 0.5 % (0.0-0.4); Lymphocytes Absolute Auto 1.5 X10*3/uL (1.2-4.9); Lymphocytes Percent Auto 23.2 % (20-40); MANUAL DIFF FLAG NO; Mean Corpuscular HGB Conc 32.7 g/dl (31.0-35.0); Mean Corpuscular Hemoglobin 27.4 pg (27.0-33.0); Mean Corpuscular Volume 83.8 fL (80.0-98.0); Mean Platelet Volume 9.4 fL (9.4-12.3); Monocytes Absolute Auto 0.6 X10*3/uL (0.1-1.2); Monocytes Percent Auto 8.6 % (2-11); Neutrophils Percent Auto 61.3 % (45-73); Platelet Count 320 X10*3/uL (160-400); Red Blood Count 4.38 X10*6/uL (4.20-5.50); Red Cell Distribution Width 14.2 % (11.0-16.0); White Blood Count 6.6 X10*3/uL (4.8-10.8)
[2022-05-05] MEDS: Aspirin 81 MG TAB.CHEW 324 MG PO (07:59)
[2022-05-05] MEDS: Famotidine 20 MG TABLET PO (07:59)
[2022-05-05 08:02] LABS: D Dimer High Sensitivity 177 NG/ML
[2022-05-05 08:17] LABS: Alanine Aminotransferase 20 U/L (0-31); Albumin Level 4.1 g/dL (3.5-5.0); Alkaline Phosphatase 108 U/L (39-117); Anion Gap 15 (12-20); Aspartate Amino Transferase 22 U/L (5-31); Bilirubin Direct 0.2 mg/dL (0.0-0.5); Bilirubin Total 0.3 mg/dL (0.0-1.0); Blood Urea Nitrogen 13 mg/dL (9-16); Calcium 9.3 mg/dL (8.4-10.2); Carbon Dioxide 26 mmol/L (22-29); Chloride 101 mmol/L (96-108); Creatinine Clr Calc Pharmacy 81.6; Estimated Glomerular Filt Rate > 60; Glucose Random 97 mg/dL (60-115); Potassium 4.1 mmol/L (3.3-5.1); Sodium 138 mmol/L (135-145); Total Protein 6.6 g/dL (6.5-8.0)
[2022-05-05 08:24] LABS: Troponin-I High Sensitivity < 3.5 ng/L (<3.5-17.0)
--- NOTE | 2022-05-05 08:53 | ECG_ITS ---
Test Reason : chest pain Blood Pressure : / mmHG Vent. Rate : 085 BPM Atrial Rate : 085 BPM P-R Int : 154 ms QRS Dur : 088 ms QT Int : 392 ms P-R-T Axes : 024 -03 026 degrees QTc Int : 466 ms Sinus rhythm with marked sinus arrhythmia Otherwise normal ECG When compared with ECG of 12-DEC-2008 11:05, No significant change was found Referred By: Aliyah Lund Electronically Signed By:NIA VELÁSQUEZ
[2022-05-05 09:13] LABS: C Reactive Protein 0.34 mg/dL (< or = 0.50)
[2022-05-05 09:29] VITALS: BP 143/78; PULSE 62
[2022-05-05] MEDS: Lactated Ringers 1,000 ML 999 ML IV (09:29)
[2022-05-05] MEDS: Nitroglycerin 0.4 MG TAB.SUBL SUBLINGUAL (09:29)
[2022-05-05 10:19] VITALS: BP 143/74; PULSE 64; RESP 22
[2022-05-05 10:46] VITALS: BP 133/75; PULSE 67; RESP 18; O2SAT 98
--- NOTE | 2022-05-05 10:46 | PC.NURSE ---
Pt reported fleeting headache after nitro. no effect on CP. CO remains 5/10, somewhat responsive to change in position
[2022-05-05 10:50] LABS: Troponin-I High Sensitivity < 3.5 ng/L (<3.5-17.0)
--- NOTE | 2022-05-05 11:01 | PC.NURSE ---
ativan held b/c patient is driving home. no change in CP. sometimes changes in position aleviate pain. skin pwd. nsr on monitor
--- NOTE | 2022-05-05 11:09 | PC.NURSE ---
PROVIDER UPDATED PATIENT ON RESULTS OF TESTING AND PLAN FOR DC. PT AGREEABLE TO PLAN. STATES NO QUESTIONS. IV REMOVED
== END 2022-05-05 11:12 | disposition home or self-care (01) ==
PROVIDERS: Emergency Provider Emergency Medicine; PCP Internal Medicine
DX: R07.89 Other chest pain (principal); I10 Essential (primary) hypertension
CPT/HCPCS: 36415; 71045; 80048; 80076; 83735; 84484; 85025; 85379; 86140; 93005; 99283; 99284

== ENCOUNTER 2022-05-12 12:00 | Outpatient (RCR) | payer OTHER, SELFPAY ==
--- NOTE | 2022-04-27 13:53 | MHC.PT.EP ---
[facility] [place] Office [place] Office [place] Office [address] Miesha Elizondo [address] [phone] F: [phone] F: [phone] F: [phone] F: [phone] Physical Therapy Plan of Care Date of Evaluation: Date of Surgery: N/A Diagnosis: low back pain (RC) Assessment: pt is a 61 y/o female presenting to physical therapy w/ referring diagnosis of strain of muscle, fascia, and tendon of lower back. Working PT diagnoses include lumbar strain versus lumbar radiculopathy. Will monitor and treat or refer as needed. Impairments include pain, decreased range of motion, decreased strength, impaired functional mobility, impaired postural awareness, and gait deviations. pt is a good candidate for skilled PT due to age, potential remediation of impairments, typical disease/condition progression and prognosis, comorbidities, and motivation. pt would benefit from tailored strengthening and stretching exercise program, functional training, gait training, postural re-training, neuromuscular re-education, modalities as needed for pain, equipment safety demonstration. Frequency and Duration: The patient will be seen 2x/wk for 4 wks Short Term Goals: pt will be I w/ HEP to promote self-management of condition. pt will demo proper sitting posture w/ lumbar roll to promote neutral spine w/ seated ADLs. [facility] Goals: pt will report a statistically significant improvement in self-reported outcome measure, Evonne, to promote return to PLOF. pt will improve lumbar flexion AROM by 50% to promote ease in lower body dressing. Treatment Plan: Modalities to reduce pain, spasms and effusion. Manual therapy to restore motion and function. Therapeutic exercise to improve strength and flexibility. Neuromuscular re-education for posture and balance. Therapeutic activities to return to functional activities of daily living. Electronically signed by: Lea Lakhani PT, DPT Please sign and return to therapist. Thank you for your referral.
--- NOTE | 2022-06-09 12:44 | MHC.PT.DC ---
[facility] [place] Office [place] Office [place] Office [address] Miesha Elizondo [address] [phone] F: [phone] F: [phone] F: [phone] F: [phone] Physical Therapy Discharge Report Diagnosis: low back pain (RC) Date of Surgery: N/A Date of Evaluation: 04/27/22 Date of Discharge: 06/09/22 Treatments to Date: 4 Cancellations to Date: 5 No Shows to Date: 0 Discharge Status: Recommend MD Follow-up Discharge Summary: The patient was dealing with some potential cardiac issues and we put her on medical hold on 05/12/22. She has not called to follow-up for her physical therapy visits in approximately one month. She is being discharged at this time; however, if she is medically cleared and would like to return to physical therapy for her back pain she is more than welcome to obtain a new referral. Electronically signed by: Lea Lakhani PT, DPT Please sign and return to therapist. Thank you for your referral.
== END 2022-06-09 12:44 | disposition home or self-care (01) ==
LOC: HO.PT 12:00
PROVIDERS: PCP Internal Medicine; Visit Provider Internal Medicine
DX: S39.012A Strain of muscle, fascia and tendon of lower back, initial encounter (principal)
CPT/HCPCS: 97110; 97140; 97162

== ENCOUNTER → 2022-05-17 06:58 | Outpatient (REF) | payer OTHER, SELFPAY ==
--- NOTE | ~2022-05-17 | NM_ITS ---
EXERCISE MYOCARDIAL PERFUSION STUDY INDICATION: Chest pain, assess for coronary disease and ischemia TECHNIQUE: The patient was brought in for an exercise perfusion study on 05/17/2022. Patient performed exercise as per Federico protocol and was injected 30 mCi of sestamibi once target heart rate was achieved. Images were obtained using the SPECT gamma camera interlaced with the gating device. Images were obtained in supine position. Resting perfusion study was performed on 05/18/2022. Patient was administered 30 mCi of sestamibi intravenously at rest. Images were then obtained in supine position. Total DLP 94mGy-cm. Images were processed with the software and compared side to side in short axis, horizontal long axis and vertical long axis views. FINDINGS: Raw images were reviewed. The stress perfusion study showed diminished tracer uptake in the distal inferolateral wall. There is improvement with CT attenuation correction and hence suggestive of diaphragmatic attenuation artifact. The gated study shows normal LV systolic function with calculated LVEF of 66%. LV cavity is normal in size. The gated study shows normal wall thickening and contraction of segments. Resting study shows no significant perfusion abnormality. Gating at rest reveals normal wall motion with ejection fraction at 75%. The findings are consistent with no definitive reversible or fixed perfusion defects. NM/NM irene perf SPECT rest & str IMPRESSION: 1. Myocardial perfusion imaging study shows likely normal myocardial perfusion. 2. Gated LVEF is 66% during stress and 75% during rest. 3. Transient ischemic dilatation not present. EKG component of the test reported separately.
[2022-05-17 07:14] LABS: MANUAL DIFF FLAG NO
--- NOTE | 2022-05-17 07:19 | CA_ITS ---
Acquisition Time: 2022-05-17 08:01:22 Total Exercise Time: 00:05:31 Test Indications: Chest Pain Medications: HCTZ METOPROLOL QUINAPRIL OMEPRAZOLE CYCLOBENZAPRINE Protocol: QUENTIN Max HR: 157 BPM 98% of Pred: 160 BPM Max BP: 212/104 mmHG Max Work Load: 7.0 METS PT EXERCISED ON STD QUENTIN PROTOCOL FOR 530 INTO STAGE 2. MAX HR 155-96%MAX. SOME CHEST TIGHTNESS 3/10. 2MM ST DEP IN ll,lll,F v4-6. OCC PVC'S. ONE COUPLET. CLINICALLY AND ELEC POSITIVE. AWAIT SCAN RESULTS. Referred By: Les Johnson Overread By: POLI JOHNSON MD
[2022-05-17 07:27] LABS: Basophils Absolute Auto 0.1 X10*3/uL (0.0-0.2); Basophils Percent Auto 1.2 % (0-2); Eosinophils Absolute Auto 0.5 X10*3/uL (0.0-0.4); Hematocrit 37.6 % (37.0-47.0); Hemoglobin 12.1 g/dl (12.0-16.0); Imm Gran Abs Auto 0.03 X10*3/uL (0.00-0.03); Imm Gran Pct Auto 0.4 % (0.0-0.4); Lymphocytes Absolute Auto 1.6 X10*3/uL (1.2-4.9); Lymphocytes Percent Auto 23.1 % (20-40); Mean Corpuscular HGB Conc 32.2 g/dl (31.0-35.0); Mean Corpuscular Volume 83.9 fL (80.0-98.0); Mean Platelet Volume 9.5 fL (9.4-12.3); Monocytes Absolute Auto 0.6 X10*3/uL (0.1-1.2); Monocytes Percent Auto 8.9 % (2-11); Neutrophils Absolute Auto 3.9 x10*3/uL (2.0-8.3); Neutrophils Percent Auto 58.4 % (45-73); Platelet Count 310 X10*3/uL (160-400); Red Blood Count 4.48 X10*6/uL (4.20-5.50); Red Cell Distribution Width 14.1 % (11.0-16.0); White Blood Count 6.8 X10*3/uL (4.8-10.8)
[2022-05-17 08:10] LABS: Alanine Aminotransferase 39 U/L (0-31); Albumin Level 4.2 g/dL (3.5-5.0); Alkaline Phosphatase 120 U/L (39-117); Anion Gap 15 (12-20); Aspartate Amino Transferase 25 U/L (5-31); Bilirubin Total 0.4 mg/dL (0.0-1.0); Blood Urea Nitrogen 11 mg/dL (9-16); Calcium 9.5 mg/dL (8.4-10.2); Carbon Dioxide 29 mmol/L (22-29); Chloride 103 mmol/L (96-108); Cholesterol 203 mg/dL; Estimated Glomerular Filt Rate > 60; Glucose Fasting 87 mg/dL (60-99); HDL Cholesterol 65 mg/dL; LDL Cholesterol Calculated 117 mg/dl; Potassium 4.5 mmol/L (3.3-5.1); Sodium 142 mmol/L (135-145); Total Protein 6.7 g/dL (6.5-8.0); Triglycerides 105 mg/dL
== END ==
LOC: HO.CARD 06:58
PROVIDERS: PCP Internal Medicine; Visit Provider Internal Medicine
DX: Z00.00 Encounter for general adult medical examination without abnormal findings (principal); R07.9 Chest pain, unspecified
CPT/HCPCS: 36415; 78452; 80053; 80061; 85025; 93017; A9500

== ENCOUNTER 2022-06-01 13:07 | Outpatient (REF) | payer OTHER, SELFPAY ==
[2022-06-01 14:22] LABS: Hematocrit 40.9 % (37.0-47.0); Hemoglobin 12.9 g/dl (12.0-16.0); Mean Corpuscular HGB Conc 31.5 g/dl (31.0-35.0); Mean Corpuscular Hemoglobin 26.8 pg (27.0-33.0); Mean Corpuscular Volume 84.9 fL (80.0-98.0); Mean Platelet Volume 9.6 fL (9.4-12.3); Platelet Count 373 X10*3/uL (160-400); Red Blood Count 4.82 X10*6/uL (4.20-5.50); Red Cell Distribution Width 13.8 % (11.0-16.0); White Blood Count 8.9 X10*3/uL (4.8-10.8)
[2022-06-01 14:38] LABS: INTERNATIONAL NORM RATIO 0.9 (0.9-1.1); Prothrombin Time 10.6 SEC (10.0-13.1)
[2022-06-01 14:46] LABS: Anion Gap 16 (12-20); Blood Urea Nitrogen 11 mg/dL (9-16); Calcium 9.7 mg/dL (8.4-10.2); Carbon Dioxide 27 mmol/L (22-29); Chloride 101 mmol/L (96-108); Estimated Glomerular Filt Rate > 60; Glucose Random 114 mg/dL (60-115); Potassium 4.4 mmol/L (3.3-5.1); Sodium 140 mmol/L (135-145)
== END 2022-06-01 13:08 | disposition home or self-care (01) ==
LOC: HO.LAB 13:07
PROVIDERS: PCP Internal Medicine; Visit Provider Internal Medicine Cardiovascular Disease
DX: I20.8 Other forms of angina pectoris (principal)
CPT/HCPCS: 36415; 80048; 85027; 85610

== ENCOUNTER → 2022-06-02 07:26 | Outpatient (REF) | payer OTHER, SELFPAY ==
--- NOTE | 2022-06-02 07:28 | CA_ITS ---
Transthoracic Echocardiogram Patient (Last, First, Middle): Barb Eden A Gender: Female Date of : 1960 Age: 61 Procedure Date: 06/02/2022 Procedure Type: Transthoracic Echocardiogram Location: OP Height: 167.64 cm Weight: 81.65 kg BSA: 1.91 m2 Heart Rate: bpm BP: 130 / 76 mmHg Neurosurgical Nurse: TO Referring MD: Scot Salas MD New Account Interviewer: Scot Salas MD Symptoms: I20.8 - Other forms of angina pectoris Study Quality: Fair/Contrast ECG Rhythm: Sinus Conclusions: - 1. Normal LV systolic function with grade 1 diastolic dysfunction 2. Normal cardiac valvular Doppler 3. Normal RV systolic pressure 4. No pericardial effusion Findings Procedure Information Contrast agent, definity, is being given per protocol without apparent complications. Left Ventricle Normal left ventricular size, thickness, and systolic function. The visually estimated ejection fraction is between 65-70%. Spectral Doppler is indicative of an impaired relaxation filling pattern. E/E prime ratio is <8, consistent with normal filling pressures. Evidence suggests grade I (mild) diastolic dysfunction. Atria The left atrium is normal in size. There is no evidence of interatrial shunt. The right atrium is normal in size. Aortic Valve The aortic valve structure and function is likely normal. There is no aortic valve stenosis. There is no aortic valve regurgitation. Mitral Valve Likely normal mitral valve structure and function. There is trace mitral valve regurgitation. There is no mitral valve stenosis. Pulmonic Valve The pulmonic valve was not well visualized. Tricuspid Valve Likely normal tricuspid valve structure and function. There is trace tricuspid valve regurgitation. The right ventricular systolic pressure is normal. The right ventricular systolic pressure is 28 mmHg. Normal right atrial pressure. There is no evidence of pulmonary hypertension. Great Vessels All visible segments of the aorta are normal in size. The pulmonary artery was not well visualized. Venous The inferior vena cava is normal in size and collapses greater than 50% with inspiration. Pericardium/Pleural There is no evidence of pericardial effusion. Prior Study Comparison No significant change compared to prior study dated: 04/15/2020. Measurements 2D Linear Measurements IVSd: 0.78 0.6-0.9/0.6-1.0 cm LVIDd: 4.72 3.9-5.3/4.2-5.9 cm LVIDd Index: 2.47 2.4-3.2/2.2-3.1 cm/m2 LVIDs: 2.63 2.0-3.6 cm LVPWd: 0.73 0.7-1.1 cm LA Diam: 3.30 2.7-3.8/3.0-4.0 cm LAIDs Index: 1.73 1.5-2.3 cm/m2 LV Mass: 141.75 67-162/88-224 g LV Mass Index: 74.22 43-95/49-115 g/m2 LVOT Diam: 2.00 3.0+(-)1.3 cm 2D Systolic Function EF 4C: 71.50 >55% EF 2C: 62.70 >55% EF BiP: 66.30 >55% Mitral Valve MV Pk E: 1.24 MV PK A: 0.58 MV Decel Time: 242.00 E/A: 2.10 E'Lateral: 8.49 E'Medial: 5.98 E/E' Med: 20.70 E/E' Lat: 14.60 PHT: 71.00 MVA PHT: 3.10 Decel [place]: 2.55 Aortic Valve AoV Pk Darren: 1.79 AoV Mn Darren: 1.12 AoV VTI: 0.35 AoV Pk Grad: 13.00 Aov Mn Grad: 6.00 GILBERT Cont.VTI: 2.78 LVOT LVOT Pk Darren: 1.60 LVOT Mn Darren: 0.96 LVOT VTI: 0.31 LVOT Pk Grad: 10.00 LVOT Mn Grad: 4.00 LVOT Diam: 2.00 LVOT Area: 3.14 Diastolic Function MV Pk E: 1.24 MV Pk A: 0.58 E/A: 2.10 E'Medial: 5.98 E/E' Med: 20.70 E' Laterial: 8.49 E/E' Lat: 14.60 Right Ventricle TAPSE (mm): 23.90 TVS' Darren: 13.70 Tricuspid Valve TR Pk Darren: 2.51 TR Pk Grad: 25.00 RA Press: 3.00 RVSP: 28.00 Great Vessels Aorta Sinus of Valsalva: 3.29 2.0-3.[address] [place]: 2.65 1.7-3.4 cm Ao Asc: 3.20 2.1-3.4 cm Updated in Other Vendor System with Status of Final Scot Salas MD electronically signed on 06/02/2022 2:48:50 PM with status of Final
== END ==
LOC: HO.CARD 07:26
PROVIDERS: PCP Internal Medicine; Visit Provider Internal Medicine Cardiovascular Disease
DX: I20.8 Other forms of angina pectoris (principal)
CPT/HCPCS: 93306; Q9957

== ENCOUNTER 2022-10-20 06:14 | Outpatient (REF) | payer OTHER, SELFPAY ==
[2022-08-11 13:45] VITALS: BP 112/54; BP 142/76
[2022-09-22 07:48] VITALS: BP 132/66; BMI 28.2
[2022-10-20 07:56] LABS: Cholesterol 161 mg/dL; HDL Cholesterol 70 mg/dL; LDL Cholesterol Calculated 73 mg/dl; Triglycerides 90 mg/dL
== END 2022-10-20 06:15 | disposition home or self-care (01) ==
LOC: HO.LAB 06:14
PROVIDERS: PCP Internal Medicine; Visit Provider Internal Medicine Cardiovascular Disease
DX: I25.10 Atherosclerotic heart disease of native coronary artery without angina pectoris (principal)
CPT/HCPCS: 36415; 80061

== ENCOUNTER 2022-11-08 07:30 | Outpatient (REF) | payer OTHER, SELFPAY ==
[2022-08-11 13:45] VITALS: BP 112/54; BP 142/76; BMI 29.3
[2022-11-02 09:37] VITALS: BP 126/68; BMI 28.1
--- NOTE | ~2022-11-08 | MM_ITS ---
EXAMINATION: MM SCREENING DIGITAL BREAST TOMOSYNTHESIS, BILATERAL CLINICAL INFORMATION: Screening. Asymptomatic. The lifetime risk of breast cancer based on the Tyrer-Cuzick Model is 15%. COMPARISON: Mammography: 11/04/2021, 09/11/2020, 05/14/2019 TECHNIQUE: Digital breast tomosynthesis is performed in both the craniocaudal and mediolateral oblique views along with computer-aided detection (CAD). Synthesized 2D images are generated from the tomosynthesis. FINDINGS: There are scattered areas of fibroglandular density (ACR BI-RADS breast composition Category b). There are no significant masses, abnormal calcifications, or other abnormalities. Parenchymal pattern is similar to prior studies. There is no developing density or architectural abnormality. The axilla and skin contours are unremarkable. No significant changes. MM/MM tomosynthesis screening BI IMPRESSION: No mammographic evidence of malignancy. ASSESSMENT: BI-RADS 1: Negative RECOMMENDATION: Routine annual mammography screening. This patient's information was entered into a reminder system with a target due date for their next mammogram.
== END 2022-11-08 07:31 | disposition home or self-care (01) ==
LOC: HO.MAMMO 07:30
PROVIDERS: Visit Provider Internal Medicine
DX: Z12.31 Encounter for screening mammogram for malignant neoplasm of breast (principal)
CPT/HCPCS: 77063; 77067

== ENCOUNTER → 2023-01-03 08:06 | Outpatient (BNVA) | payer OTHER, SELFPAY ==
[2022-12-27 07:19] VITALS: BP 112/70; BP 126/72; BMI 27.8
== END ==
PROVIDERS: PCP Internal Medicine; Visit Provider Advanced Practice Midwife
DX: Z13.89 Encounter for screening for other disorder (principal)

== ENCOUNTER 2023-01-12 06:43 | Outpatient (REF) | payer OTHER, SELFPAY ==
[2022-12-27 07:19] VITALS: BP 112/70; BP 126/72; BMI 27.8
[2023-01-12 08:12] LABS: Cholesterol 148 mg/dL; HDL Cholesterol 68 mg/dL; LDL Cholesterol Calculated 65 mg/dl; Triglycerides 78 mg/dL
== END 2023-01-12 06:44 | disposition home or self-care (01) ==
LOC: HO.LAB 06:43
PROVIDERS: PCP Internal Medicine; Visit Provider Internal Medicine Cardiovascular Disease
DX: I25.10 Atherosclerotic heart disease of native coronary artery without angina pectoris (principal); E78.00 Pure hypercholesterolemia, unspecified
CPT/HCPCS: 36415; 80061

== ENCOUNTER 2023-01-16 08:53 | Emergency (ER) | payer OTHER, SELFPAY ==
[2022-12-27 07:19] VITALS: BP 112/70; BP 126/72; BMI 27.8
[2023-01-16 09:07] VITALS: BMI 27.7
--- NOTE | 2023-01-16 09:44 | ED_ITS ---
HPI - Back Pain/Injury General Chief Complaint: Back Pain/Injury Stated Complaint: back inj l sided hip leg pain Time Seen by Provider: 01/16/23 09:19 Source: patient Mode of arrival: ambulatory Limitations: no limitations History of Present Illness HPI Narrative: Patient is a 62-year-old female with past history of cervical and lumbar surgeries, CAD, HTN, and osteoarthritis presenting with left lower back and left hip pain. She states that her pain began in her left lumbar area on Monday or of last week, worsened on Monday. She states that at 6:00 a.m. yesterday the pain moved to her left lateral hip and extends to just above her left knee. She also reports numbness to the anterior aspect of her left upper leg. She states that she used ibuprofen last week which initially was helpful in decreasing her pain but the pain is now resistant to ibuprofen. She reports pain is worse with standing or sitting and is improved with laying supine. She denies any saddle anesthesia or bowel or bladder incontinence, denies any fevers. She denies any injuries, falls, trauma. She does report that she was sitting up her camp [place] prior to onset of symptoms. MD elicited complaint: back pain and other (left hip pain) Pertinent past history: back surgery Onset (ago): day(s) Timing: constant Severity: severe Quality: sharp Location: lumbar spine Radiation: left upper leg Exacerbating factors: movement and sitting upright Relieving factors: supine Associated symptoms: numbness Treatments prior to arrival: NSAIDS Work related injury: No Related Data Home Medications Medication Instructions Recorded Confirmed hydrochlorothiazide 25 mg tablet 25 mg PO DAILY 11/11/20 06/29/22 metoprolol succinate 100 mg 100 mg PO DAILY 11/11/20 06/29/22 tablet,extended release 24 hr omeprazole 20 mg capsule,delayed 20 mg PO DAILY 06/29/22 06/29/22 release lisinopril 40 mg tablet 40 mg PO DAILY 01/03/23 Previous Rx's Medication Instructions Recorded clobetasol 0.05 % topical ointment 1 appl topical DAILY #45 grams 12/08/20 aspirin 81 mg tablet,delayed 81 mg PO DAILY #30 tabs 06/01/22 release (Ecotrin Low Strength) ticagrelor 90 mg tablet (Brilinta) 90 mg PO BID #180 tabs 07/18/22 atorvastatin 80 mg tablet 80 mg PO DAILY 90 days #90 tabs 11/21/22 hydrocortisone valerate 0.2 % 1 appl topical BEDTIME PRN itching 01/03/23 topical ointment #45 grams lidocaine 5 % topical patch 1 patch topical DAILY back and hip 01/16/23 pain #15 ea methocarbamol 500 mg tablet 500 mg PO Q8H PRN muscle spasms 01/16/23 #15 tabs prednisone 20 mg tablet 40 mg PO DAILY 5 days #10 tabs 01/16/23 Allergies Allergy/AdvReac Type Severity Reaction Status Date / Time morphine [Morphine] AdvReac Intermediate NAUSEA Verified 01/16/23 09:09 Review of Systems Review of Systems: Yes all other systems are reviewed and are negative [facility] Past Medical History Medical History CAD (coronary artery disease) COVID-19 vaccine series completed Exertional angina Family history of complication of anesthesia Hypertension Infection of tooth Lichen sclerosus of vulva Osteoarthritis Surgical History H/O arthroscopic knee surgery H/O colonoscopy History of back surgery History of fusion of cervical spine Hx of tonsillectomy Hx of tubal ligation Stented coronary artery Family History Family History Mother Colon cancer History of breast cancer Father Hypertension CVD (cardiovascular disease) Stroke Social History Social History Are you a primary rn progressive care unit to a significant other at home: No Do you presently have visiting nurse or other home services: No Alcohol intake: current Alcohol intake frequency: 0-2 drinks per day Patient Tobacco Use Status: Former Tobacco user Quit Date: 2014 Tobacco use type: Cigarette Advance Directives: No Advance Directives Information Provided: Yes 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al status: employed 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: rt handed/[employer] employee Sexual orientation: Straight/Heterosexual Gender identity: Female Physical Exam Vital Signs: Vital Signs: Last Vital Signs Temp 98.0 F 01/16/23 11:12 Pulse 58 01/16/23 11:12 Resp 18 01/16/23 11:12 BP 123/84 01/16/23 11:12 Pulse Ox 99 01/16/23 11:12 O2 Del Method Room Air 01/16/23 11:12 BMI result Body Mass Index 27.7 Appearance: Alert. Oriented X3. No acute distress. Head: normocephalic, atraumatic. Eyes: Pupils equal, round and reactive to light. Neck: Normal inspection. Neck supple. CVS: Normal heart rate and rhythm. Pulses normal. Respiratory: No respiratory distress. Breath sounds normal. Abdomen: Soft and nontender. +BS x4 Skin: Skin warm and dry. Normal skin color. Normal skin turgor. No rashes. Musculoskeletal: No lumbar spinal tenderness, no tenderness over SI joints, no CVA tenderness, + left SLR, full ROM with flexion, extension, abduction, and adduction from left hip. Extremities: No lower extremity edema. No joint swelling. Neuro/psych: Oriented X 3. No motor deficit. No sensory deficit. CN II-XII intact. DTRs 2+ bilateral lower extremities. Normal speech and cognition. Medical Decision Making Medical Decision Making MDM Narrative: Patient has a normal neurological exam with no red flag findings, no recent fevers, no IV drug use, gradual onset without known injury or trauma, no urinary symptoms, and is not anticoagulated decreasing suspicion for epidural abscess, cord compression, cauda equina, osteomyelitis, malignancy or mass, herniated dis c, lumbar strain, AAA, renal colic, pyelonephritis, UTI, or retroperitoneal hemorrhage. Imaging deferred as patient denies any falls, injury, or trauma. Prescribed prednisone, robaxin, and lidocaine patches and advised patient to use ibuprofen per package directions for next several days as well as ice and gentle stretching exercises. Advised patient to take brief walks as tolerated and avoid sitting or laying for extended periods. Instructed patient to follow up with PCP if symptoms do not improve with treatment. Patient advised of red flag symptoms for which to return to the ED. Differential Diagnosis Differential Diagnoses: The differential diagnosis associated with the presentation includes Epidural abscess, cord compression, cauda equina, osteomyelitis, malignancy or mass, herniated disc, lumbar strain, AAA, renal colic, pyelonephritis, UTI, retroperitoneal hemorrhage Radiology Impression Radiologist Impression: Considered x-ray but no trauma. Prescription Management I considered prescription management with: Pain Medication Prescribed prednisone and robaxin Chronic Conditions previous lumbar surgeries Discharge Plan Discharge Clinical Impression: Lumbar radiculopathy Patient Disposition: Home, Self-Care Instructions: Lumbar Radiculopathy (ED), Lower Back Exercises (ED) Additional Instructions: Return for any fever, numbness or tingling to groin area, loss of bowel or bladder control, increasing weakness to legs. Apply ice for 10-15 minutes at a time several times daily, using caution not to apply ice directly to skin. Perform gentle stretching exercises several times daily avoiding any stretches that cause or increase your pain. Follow up with your PCP if symptoms do not begin to gradually improve with treatment. Prescriptions: New prednisone 20 mg tablet 40 mg PO DAILY 5 Days Qty: 10 0RF lidocaine 5 % adhesive patch,medicated 1 patch topical DAILY MDD one patch Qty: 15 0RF Rx Instructions: leave on most painful area for up to 12 hrs methocarbamol 500 mg tablet 500 mg PO Q8H MDD 3 tabs PRN (Reason: muscle spasms) Qty: 15 0RF No Action Brilinta 90 mg tablet 90 mg PO BID Qty: 180 3RF atorvastatin 80 mg tablet 80 mg PO DAILY 90 Days Qty: 90 3RF metoprolol succinate 100 mg tablet extended release 24 hr 100 mg PO DAILY hydrochlorothiazide 25 mg tablet 25 mg PO DAILY clobetasol 0.05 % ointment 1 appl topical DAILY Qty: 45 11RF aspirin [Ecotrin Low Strength] 81 mg tablet,delayed release (DR/EC) 81 mg PO DAILY Qty: 30 1RF lisinopril 40 mg tablet 40 mg PO DAILY hydrocortisone valerate 0.2 % ointment 1 appl topical BEDTIME PRN (Reason: itching) Qty: 45 1RF Rx Instructions: use 1-2 times a week as directed omeprazole 20 mg capsule,delayed release(DR/EC) 20 mg PO DAILY Stand Alone Forms: Work/School Release Interventions: ED Discharge Assessment Last Done: 01/16/23 11:18 Discharge Date/Time: 01/16/23 11:19
[2023-01-16 11:12] VITALS: BP 123/84; PULSE 58; RESP 18; TEMP 36.7; O2SAT 99
== END 2023-01-16 11:19 | disposition home or self-care (01) ==
PROVIDERS: Emergency Provider Emergency Medicine; PCP Internal Medicine
DX: M54.16 Radiculopathy, lumbar region (principal); M54.50 Low back pain, unspecified; I10 Essential (primary) hypertension; Z87.891 Personal history of nicotine dependence; Z79.899 Other long term (current) drug therapy
CPT/HCPCS: 99283

== ENCOUNTER → 2023-01-31 12:58 | Outpatient (BNVA) | payer OTHER, SELFPAY ==
[2022-12-27 07:19] VITALS: BP 112/70; BP 126/72; BMI 27.8
== END ==
PROVIDERS: PCP Internal Medicine; Visit Provider Neurological Surgery

== ENCOUNTER 2023-02-27 09:00 | Outpatient (RCR) | payer OTHER, SELFPAY ==
[2022-12-27 07:19] VITALS: BP 112/70; BP 126/72; BMI 27.8
--- NOTE | 2023-02-21 13:27 | MHC.PT.EP ---
[facility] [place] [facility] [place] [facility] [place] [facility] [address] Miesha Elizondo [address] [phone] F: [phone] F: [phone] F: [phone] F: [phone] Physical Therapy Plan of Care Date of Evaluation: Date of Surgery: N/A Diagnosis: M54.16 radiculopathy, lumbar region () Assessment: pt is a 62 y/o male presenting to physical therapy w/ referring diagnosis of M54.16 radiculopathy, lumbar region. Impairments include pain, decreased range of motion, decreased strength, impaired functional mobility, impaired postural awareness, and altered ambulation mechanics. pt is a good candidate for skilled PT due to age, potential remediation of impairments, typical disease/condition progression and prognosis, comorbidities, and motivation. pt would benefit from skilled PT intervention to provide a tailored strengthening and stretching exercise program, functional training, gait training, postural re-training, neuromuscular re-education, modalities as needed for pain, equipment safety demonstration. Frequency and Duration: The patient will be seen 2x/wk for 5 wks Short Term Goals: pt will be I w/ HEP to promote self-management of condition. pt will demo proper seated posture w/ lumbar roll to promote self-management of condition. pt will improve standing tolerance w/ neutral posture to 10 min to improve tolerance for household tasks. Field Care Advocate Goals: pt will report a statistically significant improvement in self-reported outcome measure, Evonne, to promote self-management of condition. pt will improve B hip flexion and knee extension strengthening to promote ease in stair navigation. pt will ambulate x500' w/o AD to promote improved tolerance for ambulating from parking lot<>workplace. Treatment Plan: Modalities to reduce pain, spasms and effusion. Manual therapy to restore motion and function. Therapeutic exercise to improve strength and flexibility. Neuromuscular re-education for posture and balance. Therapeutic activities to return to functional activities of daily living. Electronically signed by: Lea Lakhani PT, DPT Please sign and return to therapist. Thank you for your referral.
--- NOTE | 2023-03-30 10:30 | MHC.PT.DC ---
[facility] [place] Office [place] Office [place] Office [address] Miesha Elizondo [address] [phone] F: [phone] F: [phone] F: [phone] F: [phone] Physical Therapy Discharge Report Diagnosis: M54.16 radiculopathy, lumbar region (RC) Date of Surgery: N/A Date of Evaluation: 02/21/23 Date of Discharge: 03/30/23 Treatments to Date: 3 Cancellations to Date: 0 No Shows to Date: 0 Discharge Status: Physician Discontinued Tx Discharge Summary: The patient underwent microdiscectomy on 03/09/23 so is being discharged from this physical therapy plan of care. Electronically signed by: Lea Leo PT, DPT Please sign and return to therapist. Thank you for your referral.
== END 2023-03-30 10:30 | disposition home or self-care (01) ==
LOC: HO.PT 09:00
PROVIDERS: Visit Provider Physician Assistant
DX: M54.16 Radiculopathy, lumbar region (principal)
CPT/HCPCS: 97112; 97140; 97162

== ENCOUNTER → 2023-03-01 11:19 | Outpatient (BNVA) | payer OTHER, SELFPAY ==
[2022-12-27 07:19] VITALS: BP 112/70; BP 126/72; BMI 27.8
== END ==
PROVIDERS: PCP Internal Medicine; Referring Provider Internal Medicine; Visit Provider Internal Medicine Cardiovascular Disease

== ENCOUNTER → 2023-03-02 14:31 | Outpatient (BNVA) | payer OTHER, SELFPAY ==
[2022-12-27 07:19] VITALS: BP 112/70; BP 126/72; BMI 27.8
== END ==
PROVIDERS: PCP Internal Medicine; Visit Provider Neurological Surgery

== ENCOUNTER → 2023-03-09 07:20 | Day surgery (SDC) | payer OTHER, SELFPAY ==
[2022-12-27 07:19] VITALS: BP 112/70; BP 126/72; BMI 27.8
--- NOTE | 2023-03-06 | ECG_ITS ---
Test Reason : CAD Blood Pressure : / mmHG Vent. Rate : 077 BPM Atrial Rate : 077 BPM P-R Int : 144 ms QRS Dur : 092 ms QT Int : 376 ms P-R-T Axes : 031 005 036 degrees QTc Int : 425 ms Normal sinus rhythm Normal ECG When compared with ECG of 05-MAY-2022 06:58, No significant change was found Referred By: Mary Vasquez Electronically Signed By:SUYAPA MCLAIN MD
[2023-03-06 13:12] VITALS: BP 121/73; PULSE 75; RESP 20; O2SAT 96; BMI 26.6
--- NOTE | 2023-03-06 13:30 | HO.ANESPROP2 ---
HPI - Anesthesia Eval Consult details Narrative: 62yo F for Left L2-3 Microlumbar discectomy (extra foraminal approach) CAD s/p 1 x SHEILA 05/2022. Prior to back in[place], 4 miles daily without CP or SOB. Per Cardiology, ok to proceed with urgent surgery <1 year from stenting. Case reviewed with Dr Lola Hull last dose 03/05/23 [facility] Active Problems Active Problems: All Active Problems (Updated 03/06/23 @ 13:06 by Kathi Messina RN) Lichen sclerosus (Acute) Knee pain (Acute) Osteoarthritis of left knee (Acute) Primary osteoarthritis of left knee (Acute) Tear of lateral meniscus of left knee (Acute) Rotator cuff impingement syndrome of right shoulder (Acute) Lumbar radiculopathy, acute (Acute) Lumbar disc herniation with radiculopathy (Acute) CAD (coronary artery disease) (Acute) Hypertension (Acute) Past Medical History Medical History CAD (coronary artery disease) COVID-19 vaccine series completed Elevated cholesterol Exertional angina Family history of complication of anesthesia GERD (gastroesophageal reflux disease) Habitual snoring Hypertension Infection of tooth Lichen sclerosus of vulva On anticoagulant therapy On beta ramez at home Osteoarthritis Family History Family History Mother Colon cancer History of breast cancer Father Hypertension CVD (cardiovascular disease) Stroke Family history of problems with anesthesia: No (Mom is slow to wake) Surgical History Surgical History H/O arthroscopic knee surgery H/O colonoscopy History of back surgery History of fusion of cervical spine Hx of tonsillectomy Hx of tubal ligation Stented coronary artery History of Problems with Anesthesia: No Social History Social History Housing Other:: mobile home Are you a primary toddler caregiver to a significant other at home: No Do you presently have visiting nurse or other home services: No Alcohol intake: current Alcohol intake frequency: a few times a week Patient Tobacco Use Status: Former Tobacco user Quit Date: 2012 Tobacco use type: Cigarette Years Smoked: 30 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al status: employed 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: rt handed/[employer] employee Sexual orientation: Straight/Heterosexual Gender identity: Female Meds Allergies Allergy/AdvReac Type Severity Reaction Status Date / Time morphine [Morphine] AdvReac Intermediate NAUSEA Verified 03/09/23 07:43 Home Medications Medication Instructions Recorded Confirmed Last Taken Type hydrochlorothiazide 25 mg tablet 25 mg PO DAILY 11/11/20 03/06/23 Unknown History metoprolol succinate 100 mg 100 mg PO DAILY 11/11/20 03/06/23 03/09/23 06:00 History tablet,extended release 24 hr omeprazole 20 mg capsule,delayed 20 mg PO DAILY 06/29/22 03/06/23 03/09/23 06:00 History release lisinopril 40 mg tablet 40 mg PO DAILY 01/03/23 03/06/23 Unknown History atorvastatin 80 mg tablet 80 mg PO BEDTIME 03/06/23 03/06/23 Unknown History hydrocortisone valerate 0.2 % 1 appl topical DAILY PRN itching 03/06/23 03/06/23 Unknown History topical ointment Exam Exam Date and Time: March 06, 2023 1330 Height,Weight and Vital Signs: Height 5 ft 6 in Weight 74.843 kg Last Vital Signs Pulse 75 03/06/23 13:12 Resp 20 03/06/23 13:12 BP 121/73 03/06/23 13:12 Pulse Ox 96 03/06/23 13:12 O2 Del Method Room Air 03/06/23 13:12 Pertinent Lab Results Pertinent Lab Results: Lab Results 03/06/23 03/06/23 Range/Units 14:04 14:04 WBC 9.6 (4.8-10.8) X10*3/uL RBC 4.41 (4.20-5.50) X10*6/uL Hgb 12.7 (12.0-16.0) g/dl Hct 38.7 (37.0-47.0) % MCV 87.8 (80.0-98.0) fL MCH 28.8 (27.0-33.0) pg MCHC 32.8 (31.0-35.0) g/dl RDW 12.8 (11.0-16.0) % Plt Count 381 (160-400) X10*3/uL MPV 9.4 (9.4-12.3) fL Absolute Nucleated RBC 0.000 (0.0-0.012) X10*3/uL Nucleated RBC % (auto) 0.0 (0.0-0.2) /100WBC Sodium 141 (135-145) mmol/L Potassium 3.8 (3.3-5.1) mmol/L Chloride 103 (96-108) mmol/L Carbon Dioxide 29 (22-29) mmol/L Anion Gap 13 (12-20) BUN 12 (9-16) mg/dL Creatinine 0.75 (0.5-1.4) mg/dL Estim Creat Clear Calc 81.4 Estimated GFR > 60 Random Glucose 96 (60-115) mg/dL Calcium 10.1 (8.4-10.2) mg/dL Narrative Narrative: EKG 02/2023 Vent. Rate : 077 BPM ? ? Atrial Rate : 077 BPM ?? P-R Int : 144 ms? QRS Dur : 092 ms ? ? QT Int : 376 ms ? ? ? P-R-T Axes : 031 005 036 degrees ?? QTc Int : 425 ms ? Normal sinus rhythm Normal ECG When compared with ECG of 05-MAY-2022 06:58, No significant change was found ECHO 05/2022 Conclusions: - 1.? Normal LV systolic function with grade 1 diastolic ? dysfunction? 2.? Normal cardiac valvular Doppler? 3.? Normal RV systolic pressure? 4.? No pericardial effusion? Cath Report 05/2022 on chart Airway Mallampati Class: II TM Dist: >3cm Neck ROM: Limited (Cervical plate ~2015) Heart: RRR Lungs: CTAB Assessment and Plan Assessment Anesthesia Assessment: Anesthesia Plan Discussed and PAT Visit Final Anesthetic Review Family History of Problems with Anesthesia: No (Mom is slow to wake) History of Problems with Anesthesia: No
[2023-03-06 14:43] LABS: Hematocrit 38.7 % (37.0-47.0); Hemoglobin 12.7 g/dl (12.0-16.0); Mean Corpuscular HGB Conc 32.8 g/dl (31.0-35.0); Mean Corpuscular Hemoglobin 28.8 pg (27.0-33.0); Mean Corpuscular Volume 87.8 fL (80.0-98.0); Mean Platelet Volume 9.4 fL (9.4-12.3); Platelet Count 381 X10*3/uL (160-400); Red Blood Count 4.41 X10*6/uL (4.20-5.50); Red Cell Distribution Width 12.8 % (11.0-16.0); White Blood Count 9.6 X10*3/uL (4.8-10.8)
[2023-03-06 15:01] LABS: Anion Gap 13 (12-20); Blood Urea Nitrogen 12 mg/dL (9-16); Calcium 10.1 mg/dL (8.4-10.2); Carbon Dioxide 29 mmol/L (22-29); Chloride 103 mmol/L (96-108); Creatinine Clr Calc Pharmacy 81.4; Estimated Glomerular Filt Rate > 60; Glucose Random 96 mg/dL (60-115); Potassium 3.8 mmol/L (3.3-5.1); Sodium 141 mmol/L (135-145)
[2023-03-09] VITALS (8 sets, daily range): BP systolic 119–132; BP diastolic 62–78; PULSE 62–82; RESP 12–16; TEMP 36.1–36.6; O2SAT 97–100
--- NOTE | ~2023-03-09 | FL_ITS ---
EXAMINATION: XR FLUOROSCOPY WITH IMAGES CLINICAL INFORMATION: L2-L3 microlumbar discectomy. COMPARISON: None available. TECHNIQUE: Fluoroscopy Supervised By: Dr. Dolan. Fluoroscopy Time: 0.1 minutes. Cumulative Dose: 8.21 mGy. DAP: 1.53 Gycm2. Images: 3. FINDINGS: Images demonstrate posterior left surgical instrument at the L2-L3 disc space level FL/FL guidance in OR IMPRESSION: Fluoroscopy guidance for spine surgery
--- OUTSIDE RECORDS SUMMARY | 2023-03-09 07:21 | XMS_ITS ---
Author Name Tien Mesa Address [address] [place] [address] Organization [facility] Address [address] [place] [address] Care Team Providers Care Post Form Remover Name Role Phone Tien Mesa Unavailable [phone] PROBLEMS Type Condition ICD9-CM Code [id number] Code Onset Dates Condition Status SNOMED Code Problem Family history of colon cancer Z80.0 Active 303594361 Problem Encounter for screening for malignant neoplasm of colon Z12.11 Active 326407835 Problem Preprocedural examination Z01.818 Active [id number] ALLERGIES No Known Allergies ENCOUNTERS Encounter Location Date Diagnosis [facility] [address] [facility] [address] [place] [id number] January, [facility] Outpatient [address] [place] [id number] Oct, [facility] [address] [place] [id number] Jul, Preprocedural examination Z01.818 ; Encounter for screening for malignant neoplasm of colon Z12.11 and Family history of colon cancer Z80.0 IMMUNIZATIONS No Known Immunizations SOCIAL HISTORY Qualifiers Date Current Smoker REASON FOR REFERRAL FUNCTIONAL STATUS PLAN OF CARE Activity Details VITAL SIGNS Weight 182 lbs 2017-08-23 Height 66 in 2017-08-23 BMI 29.37 kg/m2 2017-08-23 Heart Rate 68 /min 2017-08-23 Blood pressure systolic 124 mm Hg Blood pressure diastolic 90 mm Hg 2017-07 MEDICATIONS Medication Instructions Dosage Frequency Start Date End Date Du ration Status Metoprolol Succinate Active hydroCHLOROthiazide Active Ibuprofen 200 MG Active Quinapril HCl Ac tive PROCEDURES No Known procedures RESULTS No Results REASON FOR VISIT Patient presents today for a colon screening, New insurance, fam hx colon ca, screening, PATIENT PRESENTS TODAY FOR COLON SCREENING Insurance Providers Health Insurance Type Health Plan Insurance Address Health Plan Insurance Phone Health Plan Insurance Name Health Plan Coverage Dates Member ID Patient Relationship to Subscriber Patient Address Patient Phone Patient Name Patient Date of Subscriber ID Subscriber Name Subscriber Date of Group No [facility] [address] [facility] [phone] [facility] CARRILLO BOATENG [id number] [employer] [place] [address] [address] [facility] [id number] [employer] OF [facility] CARRILLO BOATENG [id number] [phone] [id number]
[2023-03-09] MEDS: methocarbamoL 750 MG TABLET PO (07:54)
[2023-03-09] MEDS: Gabapentin 300 MG CAPSULE PO (07:55)
[2023-03-09] MEDS: Lactated Ringers 1,000 ML 100 ML IVCONT (08:07)
--- NOTE | 2023-03-09 09:02 | MHC.SHP ---
Pre-Procedural Eval Section A Date of Service: 03/09/23 The patient is an INPATIENT: No The History & Physical has been completed within 30 days and I have reviewed it.: Yes Section B Chief Complaint: Intervertebral disc disorders with radiculopathy, Allergies: Allergies Allergy/AdvReac Type Severity Reaction Status Date / Time morphine [Morphine] AdvReac Intermediate NAUSEA Verified 03/09/23 07:43 Plan Diagnosis/Plan: Unchanged I have reviewed the history and physical and performed a pertinent physical examination on my patient. No changes have occurred unless specified. Time Spent With Patient Time: Total time managing care of this patient today _10___ minutes.
--- NOTE | 2023-03-09 09:36 | PM.DS ---
DS: Providers Provider Date of Service: 03/09/23 Date of discharge: 03/09/23 Primary care physician: Les Wills MD Admitting clinician: Ankit Dolan DS: Diagnosis Discharge Diagnosis (1) Lumbar disc herniation with radiculopathy: Status: Acute DS: Summary Time Spent with Patient Time attestation: Total time managing care of this patient today ____ minutes. Discharge coordination time: Less than 30 minutes Quality: Safe Use of Opioids Does Pt have an Active Cancer Diagnosis on the Problem List?: No Quality: Stroke Does the patient have a stroke diagnosis?: No Physical Exam Vital Signs: Vital Signs: Last Vital Signs Temp 97.9 F 03/09/23 07:53 Pulse 62 03/09/23 07:53 Resp 15 03/09/23 07:53 BP 123/68 03/09/23 07:53 Pulse Ox 99 03/09/23 07:53 O2 Del Method Room Air 03/09/23 07:53 BMI result Body Mass Index 26.6 Discharge Plan Discharge Patient Disposition: Home, Self-Care Referrals: Les Wills MD [Primary Care Provider] - 1 Week Discharge Medications: New oxycodone 5 mg tablet 5 mg PO Q4H PRN (Reason: pain) Qty: 30 0RF Rx Instructions: Partial Fill upon patient request. Continued atorvastatin 80 mg tablet 80 mg PO BEDTIME hydrocortisone valerate 0.2 % ointment 1 appl topical DAILY PRN (Reason: itching) Rx Instructions: use 1-2 times a week as directed metoprolol succinate 100 mg tablet extended release 24 hr 100 mg PO DAILY hydrochlorothiazide 25 mg tablet 25 mg PO DAILY aspirin [Ecotrin Low Strength] 81 mg tablet,delayed release (DR/EC) 81 mg PO DAILY Qty: 30 1RF lisinopril 40 mg tablet 40 mg PO DAILY omeprazole 20 mg capsule,delayed release(DR/EC) 20 mg PO DAILY amlodipine 2.5 mg tablet 2.5 mg PO DAILY Qty: 30 5RF Held Brilinta 90 mg tablet 90 mg PO BID Qty: 180 3RF Hold Instructions: Resume on 03/14/23. Discharge Orders: Discharge Order (Routine); Ordered 03/09/23 Ordered By: Sanket Booth Diet: Advance to usual diet Activity on Discharge: As tolerated Activity Restrictions/Additional Instructions: After your spinal surgery we ask you to observe the following restrictions/guidelines: Activity: It is normal to feel some discomfort as you increase your activity, but that will improve with time. We ask you avoid heavy lifting or acitivities that cause pain. As a general rule, 8lbs is a safe limit for lifting right after surgery. Walk as much as you feel comfortable but not to exhaustion. You will feel extra tired the first few days after surgery. Stay well hydrated. It is OK to walk up and down stairs You may return to driving when you are off narcotics (such as vicodin, oxycodone, dilaudid, etc), and you are back to normal functional capacity. If you have any concerns please check with office before driving. Return to work is specific to each patient and each surgery, so please speak with your doctor/PA at first follow up. Please bring paperwork such as FMLA at that time if you need it filled out. Medications: We will give you a short supply of narcotics after surgery (usually one weeks worth). If you need more please call the office but do not use more than prescribed. You will need to give our office 48 hours notice if you need narcotics refilled and we do not fill narcotics on weekends or evenings. If you are on a narcotic, it is a good idea to take a stool softener such as colace or senna to avoid constipation If you take blood thinner such as aspirin, Plavix, Coumadin, Effient, Eliquis etc for conditions such as Afib, DVT, Pulmonary embolus, coronary disease, stents etc please speak with your surgeon about specific details as to when you can resume these medications. You can resume NSAIDs on post op day 1 (eg: Motrin, Naproxen, etc). Follow up: Please call the office, , after surgery to arrange a 3 week follow up for wound check. Wound Care: You may remove your dressing on the first day after surgery. You may leave open to air. Please do not remove the steri strips underneath. they will fall off on their own in one week. IT IS NORMAL FOR THE WOUND TO OOZE OR BE BLOODY FOR A FEW DAYS AFTER SURGERY. IF THIS HAPPENS JUST PLACE NEW DRESSING OVER IT TO AVOID STAINING CLOTHES. You may shower on post op day # 1 We ask that you do not let the water soak the wound. If it does get wet, just towel dry lightly. Please do not scrub your incision or place any type of chemical/ointment on the wound. No tub baths, pools or jacuzzis for one month. If you have any leaking or redness from your wound, or fevers, please call office
--- NOTE | 2023-03-09 12:09 | W.PM.OPN ---
Operative Note Operative Note Date of Service: 03/09/23 Narrative: Preop diagnosis: Left lumbar radiculopathy due to extraforaminal L2-3 disc herniation Postop diagnosis: Same Procedure: L3-4 far-lateral lumbar microdiskectomy, extraforaminal approach with Metrix and microscope Surgeon: Ankit Dolan MD Assist: [email or web address] Morrissey Anesthesia: General Estimated blood loss: Minimal Specimen: None Procedure: This 62-year-old female suffer from severe left lumbar radiculopathy. She had several micro diskectomies in the past in another institution. An MRI shows a large extraforaminal disc herniation compressing the left L2 nerve root. Initially I thought was also a medial component but after reviewing the MRI again this seems to be scar tissue from a previous approach. She was offered a an L2-3 lumbar microdiskectomy through an extraforaminal approach. The procedure complications were explained. She was consented. She was brought to the operating room endotracheally intubated. She was turned prone on the [facility] spine table. Prep and drape was done for the time-out. The incision was marked with fluoroscopy. A 2 cm incision was made. Sequential dilators were advanced and docked on the L2-3 facet joint. A 22 mm was advanced over the dilators and secured to in a self-retaining arm. The microscope was brought in. The transverse process of L3 was identified. A minimal lateral facetectomy was done. The disc space was exposed, confirmed with x-ray. The than the process of removing the disc herniation started. This was quite time consuming as there disc did not come out in 1 fragment but had to be removed piecemeal. I worked my way from intraforaminal to extraforaminal to clean out the disc mass as much as possible. In the end I was able to get a long nerve hook under the nerve root as a sign of adequate decompression. The physician virtual office assistant to ?procedure. Hemostasis was done. The incision was closed in 2 layers. Steri-Strips used to approximate decision. An op-site with tegaderm was used to cover the incision. All sponge needle counts were correct. Patient was extubated and transferred in stable to recovery room.
== END | disposition home or self-care (01) ==
PROVIDERS: Nurse Practitioner; PCP Internal Medicine; Visit Provider Neurological Surgery
PROC: (CPT 63056; principal; 2023-03-09 09:10)
DX: M51.16 Intervertebral disc disorders with radiculopathy, lumbar region (principal); M79.652 Pain in left thigh; I25.10 Atherosclerotic heart disease of native coronary artery without angina pectoris; Z95.5 Presence of coronary angioplasty implant and graft; I10 Essential (primary) hypertension; E78.00 Pure hypercholesterolemia, unspecified; R06.83 Snoring; Z98.1 Arthrodesis status; Z79.01 Long term (current) use of anticoagulants; Z79.82 Long term (current) use of aspirin; Z79.899 Other long term (current) drug therapy; Z88.8 Allergy status to other drugs, medicaments and biological substances; Z87.891 Personal history of nicotine dependence; Z98.51 Tubal ligation status
CPT/HCPCS: 63056; 36415; 80048; 85027; 93005; J0131; J0690; J1100; J2250; J2405; J3010

== ENCOUNTER 2023-04-04 14:43 | Outpatient (AMB) | payer OTHER, SELFPAY ==
[2022-12-27 07:19] VITALS: BP 112/70; BP 126/72; BMI 27.8
--- NOTE | 2023-04-04 15:44 | MHC.OFFVIS ---
Intake Intake Visit Reasons: Post-op Allergies morphine [Morphine] Adverse Reaction (Intermediate, Verified 03/09/23 07:43) NAUSEA PFSH Medical History CAD (coronary artery disease) COVID-19 vaccine series completed Elevated cholesterol Exertional angina Family history of complication of anesthesia GERD (gastroesophageal reflux disease) Habitual snoring Hypertension Infection of tooth Lichen sclerosus of vulva On anticoagulant therapy On beta ramez at home Osteoarthritis Surgical History H/O arthroscopic knee surgery H/O colonoscopy History of back surgery History of fusion of cervical spine Hx of tonsillectomy Hx of tubal ligation Stented coronary artery Family History Mother Colon cancer History of breast cancer Father Hypertension CVD (cardiovascular disease) Stroke Social History Housing Other:: mobile home Are you a primary professional healthcare representative to a significant other at home: No Do you presently have visiting nurse or other home services: No Alcohol intake: current Alcohol intake frequency: a few times a week Patient Tobacco Use Status: Former Tobacco user Quit Date: 2012 Tobacco use type: Cigarette Years Smoked: 30 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al status: employed 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: rt 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 She is doing quite well, the severe severe pain that she had is gone. She is healing ever so slowly but is getting better. She is on no pain medications her wounds have healed up well. Her strength seems okay. She is able to stand up out of a chair on her own without any issues. We discussed activity guidelines, restrictions and expectations after lumbar microdiskectomy. I reassured her that the pain in her legs should get better slowly but given that it was a disc herniation in the far lateral space near the dorsal root ganglion that these can take many months and just continue to be patient. I gave her a note to go back to work, she does no lifting, so I sent her back without restrictions. Sanket Dolan MD, PhD [facility] Medications: Discontinued atorvastatin 80 mg PO DAILY 90 days 90 tabs 3RF I20.8 - Other forms of angina pectoris hydrocortisone valerate 0.2% use 1-2 times a week as directed 1 appl topical BEDTIME PRN 45 grams 1RF itching Coding Level of Care Code Global (91242) Diagnoses Lumbar radiculopathy, acute M54.16
== END 2023-04-04 16:38 | disposition home or self-care (01) ==
PROVIDERS: PCP Internal Medicine; Visit Provider Physician Assistant
DX: M54.16 Radiculopathy, lumbar region (principal)
CPT/HCPCS: 99024

== ENCOUNTER → 2023-04-04 14:43 | Outpatient (BNVA) | payer OTHER, SELFPAY ==
[2022-12-27 07:19] VITALS: BP 112/70; BP 126/72; BMI 27.8
== END ==
PROVIDERS: PCP Internal Medicine; Visit Provider Physician Assistant

== ENCOUNTER → 2023-06-14 06:18 | Outpatient (REF) | payer OTHER, SELFPAY ==
[2022-12-27 07:19] VITALS: BP 112/70; BP 126/72; BMI 27.8
[2023-06-14 06:27] LABS: MANUAL DIFF FLAG NO
[2023-06-14 07:47] LABS: Alanine Aminotransferase 30 U/L (0-31); Albumin Level 4.6 g/dL (3.5-5.0); Alkaline Phosphatase 128 U/L (39-117); Anion Gap 15 (12-20); Aspartate Amino Transferase 33 U/L (5-31); Bilirubin Total 0.4 mg/dL (0.0-1.0); Blood Urea Nitrogen 11 mg/dL (9-16); Calcium 10.4 mg/dL (8.4-10.2); Carbon Dioxide 28 mmol/L (22-29); Chloride 102 mmol/L (96-108); Cholesterol 165 mg/dL (<200); Estimated Glomerular Filt Rate > 60; Glucose Fasting 87 mg/dL (60-99); HDL Cholesterol 75 mg/dL (>40); LDL Cholesterol Calculated 65 mg/dL (<100); Sodium 141 mmol/L (135-145); Total Protein 7.6 g/dL (6.5-8.0); Triglycerides 126 mg/dL (<150)
[2023-06-14 07:54] LABS: Basophils Absolute Auto 0.1 X10*3/uL (0.0-0.2); Eosinophils Absolute Auto 0.5 X10*3/uL (0.0-0.4); Eosinophils Percent Auto 6.2 % (0-4); Hemoglobin 14.1 g/dl (12.0-16.0); Imm Gran Abs Auto 0.02 X10*3/uL (0.00-0.03); Imm Gran Pct Auto 0.2 % (0.0-0.4); Lymphocytes Absolute Auto 1.7 X10*3/uL (1.2-4.9); Lymphocytes Percent Auto 20.2 % (20-40); Mean Corpuscular HGB Conc 32.8 g/dl (31.0-35.0); Mean Corpuscular Hemoglobin 29.3 pg (27.0-33.0); Mean Corpuscular Volume 89.4 fL (80.0-98.0); Mean Platelet Volume 9.8 fL (9.4-12.3); Monocytes Absolute Auto 0.7 X10*3/uL (0.1-1.2); Monocytes Percent Auto 8.6 % (2-11); Neutrophils Absolute Auto 5.3 x10*3/uL (2.0-8.3); Neutrophils Percent Auto 63.8 % (45-73); Platelet Count 343 X10*3/uL (160-400); Red Blood Count 4.81 X10*6/uL (4.20-5.50); Red Cell Distribution Width 13.4 % (11.0-16.0); White Blood Count 8.4 X10*3/uL (4.8-10.8)
--- NOTE | 2023-06-14 13:04 | HM_ITS ---
* Total monitoring time 6 days. * Underlying rhythm is sinus. Average ventricular rate 66/Min. Range 44 to 119/Min. * Premature ventricular ectopy noted with a burden of 1.4%. Mostly isolated beats. Rare couplets. * Rare supraventricular ectopy. * No significant pauses or heart blocks. * Symptoms in patient diary including palpitations, lightheadedness, headache, shortness of breath, chest discomfort correlate with sinus rhythm/PVC. MTDD
== END ==
LOC: HO.CARD 06:18
PROVIDERS: PCP Internal Medicine; Visit Provider Internal Medicine
DX: R00.2 Palpitations (principal); I25.10 Atherosclerotic heart disease of native coronary artery without angina pectoris; I10 Essential (primary) hypertension; E78.00 Pure hypercholesterolemia, unspecified; K21.9 Gastro-esophageal reflux disease without esophagitis
CPT/HCPCS: 36415; 80053; 80061; 85025; 93242

== ENCOUNTER → 2023-06-14 13:04 | Outpatient (BNV) | payer OTHER, SELFPAY ==
[2022-12-27 07:19] VITALS: BP 112/70; BP 126/72; BMI 27.8
== END ==
PROVIDERS: PCP Internal Medicine; Visit Provider Internal Medicine
DX: I49.3 Ventricular premature depolarization (principal)
CPT/HCPCS: 93244

== ENCOUNTER 2023-07-28 06:14 | Day surgery (SDC) | payer OTHER, SELFPAY ==
[2022-12-27 07:19] VITALS: BP 112/70; BP 126/72; BMI 27.8
[2023-07-26 12:17] VITALS: BMI 26.5
--- NOTE | 2023-07-27 10:40 | HO.ANESPROP2 ---
Documented by User: Mary Vasquez NP 07/27/23 10:44 HPI - Anesthesia Eval Consult details Narrative: 63yo M for Upper Endoscopy and Colonoscopy CAD s/p 1 x SHEILA 05/2022. Follows [facility] cardiology. Last seen 02/2023 for spine surgery preop. OK for 1 year f/u. Lifelong aspirin s/p microdiscectomy 02/2023 with GA-ETT 7 PMFSH Active Problems Active Problems: All Active Problems (Updated 03/06/23 @ 13:06 by Kathi Messina RN) Lumbar disc herniation with radiculopathy (Acute) Lumbar radiculopathy, acute (Acute) Rotator cuff impingement syndrome of right shoulder (Acute) Tear of lateral meniscus of left knee (Acute) Primary osteoarthritis of left knee (Acute) Osteoarthritis of left knee (Acute) Knee pain (Acute) Lichen sclerosus (Acute) CAD (coronary artery disease) (Acute) Hypertension (Acute) Past Medical History Medical History (Updated 07/28/23 @ 06:32 by Nubia Nelson RN) GERD (gastroesophageal reflux disease) Habitual snoring Elevated cholesterol On anticoagulant therapy On beta ramez at home CAD (coronary artery disease) Exertional angina Lichen sclerosus of vulva COVID-19 vaccine series completed Infection of tooth Family history of complication of anesthesia Osteoarthritis Hypertension Family History Family History Mother Colon cancer History of breast cancer Father Hypertension CVD (cardiovascular disease) Stroke Family history of problems with anesthesia: No (Mom is slow to wake) Surgical History Surgical History (Updated 07/26/23 @ 12:16 by Eloise Hoskins RN) Stented coronary artery H/O arthroscopic knee surgery History of fusion of cervical spine History of back surgery H/O colonoscopy Hx of tubal ligation Hx of tonsillectomy History of Problems with Anesthesia: No Social History Social History Housing Other:: mobile home Are you a primary outdoor emergency care technician to a significant other at home: No Do you presently have visiting nurse or other home services: No Alcohol intake: current Alcohol intake frequency: a few times a week Patient Tobacco Use Status: Former Tobacco user Quit Date: 2012 Tobacco use type: Cigarette Years Smoked: 30 Use of substances other than those prescribed or required for medical reasons: No Have you been hit, kicked, punched, or otherwise hurt by someone within the past year? 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/[employer] employee Sexual orientation: Straight/Heterosexual Gender identity: Female Meds Allergies Allergy/AdvReac Type Severity Reaction Status Date / Time morphine [Morphine] AdvReac Intermediate NAUSEA Verified 03/09/23 07:43 Home Medications Medication Instructions Recorded Confirmed Last Taken Type hydrochlorothiazide 25 mg tablet 25 mg PO DAILY 11/11/20 07/26/23 Unknown History metoprolol succinate 100 mg 100 mg PO DAILY 11/11/20 07/26/23 07/28/23 History tablet,extended release 24 hr omeprazole 20 mg capsule,delayed 20 mg PO DAILY 06/29/22 07/26/23 03/09/23 06:00 History release atorvastatin 80 mg tablet 80 mg PO BEDTIME 03/06/23 07/26/23 Unknown History hydrocortisone valerate 0.2 % 1 appl topical DAILY PRN itching 03/06/23 07/26/23 Unknown History topical ointment amlodipine 2.5 mg tablet 2.5 mg PO BEDTIME 07/26/23 07/26/23 Unknown History losartan 50 mg tablet 50 mg PO DAILY 07/26/23 07/26/23 Unknown History Exam Exam Date and Time: July 27, 2023 1040 Height,Weight and Vital Signs: Height 5 ft 6 in Weight 74.389 kg Pertinent Lab Results Pertinent Lab Results: Laboratory Tests 06/14/23 06:26 WBC 8.4 Hgb 14.1 Hct 43.0 Plt Count 343 Sodium 141 Potassium 4.0 Chloride 102 Carbon Dioxide 28 BUN 11 Creatinine 0.77 Narrative Narrative: EKG 02/2023 Vent. Rate : 077 BPM ? ? Atrial Rate : 077 BPM ?? P-R Int : 144 ms? QRS Dur : 092 ms ? ? QT Int : 376 ms ? ? ? P-R-T Axes : 031 005 036 degrees ?? QTc Int : 425 ms ? Normal sinus rhythm Normal ECG When compared with ECG of 05-MAY-2022 06:58, No significant change was found ECHO 05/2022 Conclusions: - 1.? Normal LV systolic function with grade 1 diastolic ? dysfunction? 2.? Normal cardiac valvular Doppler? 3.? Normal RV systolic pressure? 4.? No pericardial effusion? Cath Report 05/2022 on chart Assessment and Plan Assessment Anesthesia Assessment: Chart Reviewed Final Anesthetic Review Family History of Problems with Anesthesia: No (Mom is slow to wake) History of Problems with Anesthesia: No Documented by User: Zeferino Davidson MD 07/28/23 12:39 [facility] Past Medical History Medical History (Updated 07/28/23 @ 06:32 by Nubia Nelson, LORI) GERD (gastroesophageal reflux disease) Habitual snoring Elevated cholesterol On anticoagulant therapy On beta ramez at home CAD (coronary artery disease) Exertional angina Lichen sclerosus of vulva COVID-19 vaccine series completed Infection of tooth Family history of complication of anesthesia Osteoarthritis Hypertension Functional capacity: independent ambulation Family History Family History Mother Colon cancer History of breast cancer Father Hypertension CVD (cardiovascular disease) Stroke Surgical History Surgical History (Updated 07/26/23 @ 12:16 by Eloise Hoskins RN) Stented coronary artery H/O arthroscopic knee surgery History of fusion of cervical spine History of back surgery H/O colonoscopy Hx of tubal ligation Hx of tonsillectomy Social History Social History Housing Other:: mobile home Are you a primary outdoor emergency care technician to a significant other at home: No Do you presently have visiting nurse or other home services: No Alcohol intake: current Alcohol intake frequency: a few times a week Patient Tobacco Use Status: Former Tobacco user Quit Date: 2012 Tobacco use type: Cigarette Years Smoked: 30 Use of substances other than those prescribed or required for medical reasons: No Have you been hit, kicked, punched, or otherwise hurt by someone within the past year? 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/[employer] employee Sexual orientation: Straight/Heterosexual Gender identity: Female Meds Allergies Allergy/AdvReac Type Severity Reaction Status Date / Time morphine [Morphine] AdvReac Intermediate NAUSEA Verified 03/09/23 07:43 Home Medications Medication Instructions Recorded Confirmed Last Taken Type hydrochlorothiazide 25 mg tablet 25 mg PO DAILY 11/11/20 07/26/23 Unknown History metoprolol succinate 100 mg 100 mg PO DAILY 11/11/20 07/26/23 07/28/23 History tablet,extended release 24 hr omeprazole 20 mg capsule,delayed 20 mg PO DAILY 06/29/22 07/26/23 03/09/23 06:00 History release atorvastatin 80 mg tablet 80 mg PO BEDTIME 03/06/23 07/26/23 Unknown History hydrocortisone valerate 0.2 % 1 appl topical DAILY PRN itching 03/06/23 07/26/23 Unknown History topical ointment amlodipine 2.5 mg tablet 2.5 mg PO BEDTIME 07/26/23 07/26/23 Unknown History losartan 50 mg tablet 50 mg PO DAILY 07/26/23 07/26/23 Unknown History Exam Airway Mallampati Class: III Neck ROM: Full Loose/Missing/Broken Teeth: Yes Assessment and Plan Assessment Anesthesia Assessment: Anesthesia Plan Discussed Final Anesthetic Review NPO: Yes ASA Class: III Final Preanesthetic Review: Meds/Allgs Chart Reviewed, Consent Obtained/Reviewed and Anes Risks/Benef Reviewed Patient Risk: Intermediate Procedure Risk: Intermediate Anesthetic Plan Anesthetic Plan: MAC: and Agree w/ Assess. and Plan Disposition: Standard PACU
--- OUTSIDE RECORDS SUMMARY | 2023-07-28 06:16 | XMS_ITS | Continuity of Care Document ---
Author Name Unknown Organization [facility] Address [address] [place] [address]- Care Team Providers Care Materials Supervisor Name Role Phone Les Wills MD Primary Care Physician [phone] Encounter [facility] Date(s): 06/12/23 - 07/12/23 [facility] [address] [place] [address]- Allergies, Adverse Reactions, Alerts Substance Reaction Severity Status morphine Active Immunizations Given and Recorded Vaccine Date Status Refusal Reason zoster vaccine, inactivated 07/11/22 Recorded [id number] bivalent booster vax 07/11/22 Recorded influenza virus vaccine, inactivated 06/30/22 Chase rded SARS-CoV-2 (COVID-19) mRNA-1273 vaccine 04/14/22 R ecorded SARS-CoV-2 (COVID-19) mRNA BNT-162b2 vac 06/23/21 Recorded SARS-CoV-2 (COVID-19) mRNA BNT-162b2 vac 10/06/20 Recorded SARS-CoV-2 (COVID-19) mRNA BNT-162b2 vac 09/15/20 Recorded Medications amLODIPine 2.5 mg oral tablet 2.5 mg, 1, tablet, By Mouth, Daily, # 30 tablet, Refills 0, Maintenance, 05/24/23 7:30:00 EDT, Partial fill upon patient request if the prescription is for a schedule II opioid drug. Start Date: 05/24/23 Status: Ordered aspirin 81 mg oral delayed release tablet 81 mg, 1, tablet, By Mouth, Daily, Refills 0, Maintenance, 06/14/22 9:38:00 EDT, Partial fill upon patient request if the prescription is for a schedule II opioid drug. Start Date: 06/14/22 Status: Ordered atorvastatin 40 mg oral tablet 1 tablet = 40 mg, By Mouth, Daily, 0 Refills, Maintenance, 06/14/22 9:38:00 EDT, Partial fill upon patient request if the prescription is for a schedule II opioid drug. Start Date: 06/14/22 Status: Ordered Flonase 50 mcg/inh nasal spray 1 sprays, Nares, Both, Daily in AM, 0 Refills, Maintenance, 06/14/22 9:39:00 EDT, [place], Partial fill upon patient request if the prescription is for a schedule II opioid drug. Start Date: 06/14/22 Status: Ordered hydrochlorothiazide 25 mg oral tablet 25 mg, 1, tablet, By Mouth, Daily, Refills 0, Maintenance, 12/09/18 10:57:33 EDT Start Date: 12/09/18 Status: Ordered hydrocortisone topical valerate 0.2% cream Topically, Daily, PRN Itch, 0 Refills, Maintenance, 06/14/22 9:39:00 EDT, Partial fill upon patientrequest if the prescription is for a schedule II opioid drug. Start Date: 06/14/22 Status: Ordered isosorbide mononitrate 30 mg oral tablet, extended release 30 mg, 1, tablet, By Mouth, Daily in AM, Refills 0, Maintenance, 06/14/22 9:38:00 EDT, Partial fillupon patient request if the prescription is for a schedule II opioid drug. Start Date: 06/14/22 Status: Ordered lisinopril 40 mg oral tablet 1 tablet = 40 mg, By Mouth, Daily, # 30 tablet, 0 Refills, Maintenance, 05/24/23 7:30:00 EDT, Tablet, Partial fill upon patient request if the prescription is for a schedule II opioid drug. Start Date: 05/24/23 Status: Ordered metoprolol 100 mg oral tablet 100 mg, 1, tablet, By Mouth, Daily, Refills 0, Maintenance, 12/09/18 10:58:09 EDT Start Date: 12/09/18 Status: Ordered omeprazole 20 mg oral delayed release tablet 1 tablet = 20 mg, By Mouth, Daily, 0 Refills, Maintenance, 06/14/22 9:38:00 EDT, Partial fill upon patient request if the prescription is for a schedule II opioid drug. Start Date: 06/14/22 Status: Ordered quinapril 40 mg oral tablet 1 tablet = 40 mg, By Mouth, Daily, 0 Refills, Maintenance, 12/09/18 10:59:24 EDT Start Date: 12/09/18 Status: Ordered ticagrelor 90 mg oral tablet 1 tablet = 90 mg, By Mouth, 2 times a day, # 180 tablet, 3 Refills, Maintenance, 06/14/22 14:12:00 EDT, Tablet, [facility], Partial fill upon patient request if the prescription is for a schedule II opioid drug., 168, cm, 06/14/22 9:42:0... Start Date: 06/14/22 Status: Ordered Social History Social History Type Response Smoking Status Former smoker, quit more than 30 days ago entered on: 12/09/18 Sex Patient Care team information Care Team Personnel Name: Les Wills MD Position: [facility] Outreach Member Role: PCP Address: Address: [address] [place] [address]- Care Team Related Persons Name: HEATHER BOATENG Address: home [address] [place] [id number]
--- OUTSIDE RECORDS SUMMARY | 2023-07-28 06:16 | XMS_ITS | Continuity of Care Document ---
Author [facility] Address [address] [place] [address]- Care Team Providers Care Resident Medical Officer Name Role Phone Les Wills MD Primary Care Physician Encounter [facility] Date(s): 05/24/23 - 05/24/[address] [address]- Discharge Disposition: A-D/C Home Attending Physician: Tien Lozada MD Admitting Physician: Tien Lozada MD Referring Physician: Not on Staff, Referring MD Allergies, Adverse Reactions, Alerts Substance Reaction Severity Status morphine Active Immunizations Given and Recorded Vaccine Date Status Refusal Reason zoster vaccine, inactivated 07/11/22 Recorded [id number] bivalent booster vax 07/11/22 Recorded influenza virus [...] AM, 0 Refills, Maintenance, 06/14/22 9:39:00 EDT, [place], Partial fill upon patient request if the [...] 3 Refills, Maintenance, 06/14/22 14:12:00 EDT, Tablet, [facility], Partial fill upon patient request if the prescription is for a schedule II opioid drug., 168, cm, 06/14/22 9:42:0... Start Date: 06/14/22 Status: Ordered Vital Signs Most recent to oldest [Reference Range]: 1 2 Height 168 cm (05/24/23 7:20 AM) Weight 75 kg (05/24/23 7:20 AM) Oxygen Saturation [94-100 %] 99 % (05/24/23 8:00 AM) 98 % (05/24/23 7:20 AM) Pulse Rate [55-90 bpm] 63 bpm (05/24/23 8:00 AM) 72 bpm (05/24/23 7:20 AM) Blood Pressure [90-138/55-84 mm Hg] 124/ 76mm Hg (05/24/23 8:00 AM) 148/83mm Hg *H* (05/24/23 7:20 AM) Respiratory Rate [16-30 br/min] 16 br/mi n (05/24/23 8:00 AM) 17 br/min (05/24/23 7:20 AM) Temperature [96.8-100.4 DegF] 98.3 DegF (05/24/23 7:20 AM) Mode of Delivery (Oxygen) Room air (05/24/23 8:00 AM) Room air (05/24/23 7:20 AM) Blood pressure sites Arm, right (05/24/23 7:20 AM) Temperature Route Oral (05/24/23 7:20 AM) Dry Weight 75 kg (05/24/23 7:20 AM) Weight Obtained Via Patient/family state d (05/24/23 7:20 AM) Dry Weight Obtained Via Patient/family s tated (05/24/23 7:20 AM) Social History Social History Type Response Smoking Status Former smoker, quit more than 30 days ago entered on: 12/09/18 Sex Note * Dany Jacobs: PERFORM Event Display: Patient Education Leaflets Authored Date: [id number] Heart Palpitations ?? [id number] Heart Palpitations Palpitations are the feeling that your heart is beating hard, fast, or irregular. Some describe it as pounding, flip-flopping in the chest, or skipped beats. Palpitations may occur in someone with heart disease. But they can also occur in a healthy person. Heart-related causes: ??? Heart rhythm problem (arrhythmia) ??? Heart valve disease ??? Disease of the heart muscle (cardiomyopathy) ??? Coronary artery disease ??? High blood pressure Krm-obfvd-zicnwey causes: ??? Certain medicines such as asthma inhalers and decongestants ??? Some herbal supplements, energydrinks and pills, and weight loss pills ??? Illegal stimulant drugs such as cocaine, crank, methamphetamine, PCP, and ecstasy ??? Caffeine, alcohol, and tobacco ??? Health conditions such as thyroid disease, anemia, anxiety, and panic disorder Sometimes the cause can't be found. Home care Follow these home care tips: ??? Don't use too much caffeine, alcohol, or tobacco, or any stimulantdrugs. ??? Tell your doctor about any prescription or tbng-ldv-jxnxxio or herbal medicines you take. ?? Follow-up care ??? Follow up with your doctor, or as advised. ?? Call 911 This is the fastest and safest way to get to the emergency department. The paramedics can also start treatment on the way to the hospital, if needed. Don't wait until your symptoms are severe to call 911. These are reasons to call 911: ??? Chest pain ??? Shortness of breath ??? Feeling lightheaded, faint, or dizzy, or losing consciousness ??? Veryirregular heartbeat ??? Rapid heartbeat that makes you uncomfortable ??? Slower than usual heart rate along with symptoms ??? Chest pain with weakness, dizziness,??heavy sweating, nausea, or vomiting??? Extreme drowsiness, confusion, or weakness ??? Weakness of an arm or leg, or on one side of theface ??? Trouble with speech or vision ?? When to seek medical advice Call your healthcare provider right away if you have palpitations that last longer than normal, or are different from your past palpitations. ?? Last Reviewed Date: 2021 ?? [id number] [employer]. All rights reserved. This information is not intended as a substitute for professional medical care. Always follow your healthcare professional's instructions. ?? Patient Care team information Care Team Personnel Name: Les Wills MD Position: [facility] Outreach Member Role: PCP Address: Address: [address] [place] [address] [place] [address]- Name: Liz You RN Position: [facility] ED RN W/OE and Tasks Member Role: Patient Care Provider Name: Dany Jacobs Position: [facility] Associate Professional Member Role: ED Physician Telemetry Tech Address: Address: [address] [place] [address] [place] [address]- Name: Emely Randolph Position: [facility] ED OA Name: Tien Lozada MD Position: [facility] ED Medicine MD Member Role: Admitting Physician Address: Address: [address] [place] [address]- Name: Lisa Mayer RN Position: [facility] ED RN W/OE and Tasks Member Role: Patient Care Provider Care Team Related Persons Name: HEATHER BOATENG Address: home [address] [place] [address]
--- OUTSIDE RECORDS SUMMARY | 2023-07-28 06:16 | XMS_ITS | Patient Health Record ---
Author Name Unknown Organization [facility] Address [address] [place] [address] Care Team Providers Care Health Consultant Name Role Phone Les Wills MD Primary Care Provider Tien Cardenas [phone] ALLERGIES Allergen (clinical drug ingredient) Drug/Non Drug Allergy documented on EMR Reaction Allergy Type Onset Date Status morphine Morphine n/v Drug Allergy Active REASON FOR REFERRAL No Information MEDICATIONS Medication SIG (Take, Route, Frequency, Duration) Notes Start Date End Date Status Metoprolol Succinate Active hydroCHLOROthiazide Active amLODIPine Besylate 2.5 MG Oral for 90 Active Ibuprofen 200 MG prn Act larry Lisinopril 40 MG TAKE 1 TABLET BY MOUTH EVERY DAY Oral for 90 Active Atorvastatin Calcium 80 MG TAKE 1 TABLET BY MOUTH DAILY Diagnosis Unavailable Oral for 90 Active Metoprolol Succinate ER 100 MG TAKE 1 TABLET BY MOUTH DAILY Oral for 30 Active Brilinta 90 MG Oral for 30 Stopping in 05/2023 Active CoQ-10 Active Aspirin 81 81 MG 1 tablet Orally Once a day for 30 day(s) Active SOCIAL HISTORY Tobacco Use: Social History Observation Description Date Details (start date - stop date) Former Smoker NA - NA Sex Assigned At : Social History Observation Description Sex Assigned At Unknown Tobacco Use/Smoking Question Answer Notes Patient is a former smoker How long has it been since you last smoked? 5-10 years Alcohol Screen Question Answer Notes Did you have a drink contain ing alcohol in the past year? Yes How often did you have a dri nk containing alcohol in the past year? 4 or more times a week (4 points) How many drinks did you have on a typical day when you were drinking in the past year? 3 or 4 drinks (1 point) How often did you have 6 or more drinks on one occasion in the past year? Never (0 point) Points 5 Interpretation Positive PROBLEMS Problem Type ICD Code Onset Dates Problem Status W/U Status Risk SNOMED Code Notes Problem Encounter for screening for malignant neoplasm of colon (Z12.11) Active confirmed 141434109 Problem Family history of colon cancer (Z80.0) Active confirmed 128376920 Problem Preprocedural examination (Z01.818) Active confirmed 851477892 Problem Gastroesophageal reflux disease, unspecified whether esophagitis present (K21.9) Active confirmed [id number] Encounters Encounter Location Date Provider Diagnosis [facility] [place] [place] Outpatient [address] [place] [phone] 07/28/2023 Tien Mesa [facility] [address] [place] [id number] 03/21/2023 Tien Mesa Gastroesophageal ref lux disease, unspecified whether esophagitis present K21.9 ; Encounter for screening for malignant neoplasm of colon Z12.11 ; Family history of colon cancer Z80.0 and Preprocedural examination Z01.818 [facility] [address] [place] [phone] 02/07/2023 Tien Mesa ASSESSMENTS Encounter Date Diagnosis Assessment Notes Treatment Notes Treatment Clinical Notes 03/21/2023 Gastroesophageal reflux disease, unspecified whether esophagitis present (ICD-10 - K21.9) 03/21/2023 Encounter for screening for malignant neoplasm of colon (ICD-10 - Z12.11) Do not take aspirin on the morning of the procedures Do not take Hydrochlorothiazide the day before nor on the day of the procedures 03/21/2023 Family history of colon cancer (ICD-10 - Z80.0) 03/21/2023 Preprocedural examination (ICD-10 - Z01.818) PLAN OF TREATMENT Future Test Test Name Order Date COLONOSCOPY 08/23/2017 UPPER GI ENDOSCOPY 03/21/2023 COLONOSCOPY 03/21/2023 Next Appt Details Provider Name:Tien Mesa , 07/28/2023 07:30:00 AM, [address] [place] [address] , [place], [place], [id number], Insurance Providers Payer Name Payer Address Payer Phone Subscriber Number Group Number Insured Name Patient Relationship to Insured Coverage Start Date Coverage End Date [employer] [address] [address] [place] [address] [id number] CARRILLO BOATENG Self - patient is the insured MEDICAL (GENERAL) HISTORY Medical History History ICD Code Denies MT,DM,CVA,Lung disease,renal dise ase Hypertension Neg. screening colonoscopy i n [facility] approx. 2004 and neg. colonoscopy in [address] Davidson--hyperplastic polyp and internal hemorrhoids Neck pain Back pain 05/2022 cardiac stent - Dr. Salas--stoppi ng Brilinta in 05/2023 Colonoscopy 10/2017 with a hyperplastic p olyp Surgical History Surgery Date(Month/Year) Tonsillectomy 1966 Cervical fusion 2016 Lumbar back surgery x 4, including L2/L3 --Dr. Dolan 03/09/2023 Left knee meniscus
[2023-07-28 06:38] VITALS: BP 145/83; PULSE 67; RESP 16; TEMP 36.4; O2SAT 100
[2023-07-28] MEDS: Lactated Ringers 1,000 ML 100 ML IVCONT (07:00)
[2023-07-28 08:45] VITALS: BP 130/72; PULSE 63; RESP 16; TEMP 36.6; O2SAT 97
--- NOTE | 2023-07-28 08:49 | P.BOP_ITS ---
Brief Operative Note Date of Service: 07/28/23 Pre-op diagnosis: GERD, Screening Post-op diagnosis: other (Hiatal hernia, Gastric polyps, Colon polyp) Procedure: EGD with biopsies, Colonoscopy to the cecum with bx/removal of polyp Surgeon: Tien Mesa MD Anesthesia: MAC Was an [facility] Laboratory Assistant used for this Procedure?: No Estimated blood loss (mL): 2.0 Pathology: other (A. EG Junction at 35cm B. Gastric polyps C. Cecal polyp) Condition: stable Disposition: PACU
[2023-07-28 08:59] VITALS: BP 146/84; PULSE 62; RESP 16; TEMP 36.7; O2SAT 100
--- NOTE | 2023-07-28 09:22 | OP_ITS ---
DATE OF SERVICE: 07/28/2023 SURGEON: Tien Mesa MD INDICATIONS: The patient presents for evaluation of gastroesophageal reflux and colorectal cancer screening, as well as family history of colon cancer. Full consent has been obtained from her for this, including risks of bleeding and perforation. PREOPERATIVE DIAGNOSIS: POSTOPERATIVE DIAGNOSIS: PROCEDURE PERFORMED: Esophagogastroduodenoscopy with biopsies, and colonoscopy to cecum with biopsy and removal of polyp. ESTIMATED BLOOD LOSS: COMPLICATIONS: ANESTHESIA: Medication used, monitored anesthesia care. ASSISTANTS: SPECIMENS: PREOPERATIVE DIAGNOSES: Gastroesophageal reflux, family history of colon cancer, and colorectal cancer screening. POSTOPERATIVE DIAGNOSES: Gastroesophageal reflux, family history of colon cancer, and colorectal cancer screening, hiatal hernia, gastric polyps, colon polyp, diverticulosis and internal hemorrhoids. DESCRIPTION OF PROCEDURE: The patient was placed in the left lateral decubitus position. The Olympus video gastroscope was passed in the posterior oropharynx and upper esophagus under direct vision. The scope was passed slowly into the distal esophagus. The gastroesophageal junction appeared slightly irregular at 35 cm. There was no sign of esophagitis, lesions, nor any definitive Lira mucosa. The scope entered the stomach. There was a small hiatal hernia. The scope was advanced to the pylorus and the duodenum was cannulated the descending portion. The duodenum including the bulb appeared normal without mass or ulceration. The scope was withdrawn back to the stomach. The gastric antrum and body appeared normal with good peristalsis. The scope was retroflexed visualizing the proximal stomach carefully which appeared normal, without any mass or ulceration, other than several hyperplastic appearing gastric polyps. Some of these were biopsied. The scope was straightened and withdrawn back to the esophagus. Biopsies were obtained at the EG junction at 35 cm. Proximal to this, the esophageal mucosa appeared normal. The scope was withdrawn from the patient. She was turned around for colonoscopy. The digital rectal exam revealed no abnormalities. The Olympus video pediatric colonoscope was entered into the rectum and advanced easily to the cecum. Once in the cecum, I did identify cecal pouch with appendiceal orifice and a normal-appearing ileocecal valve. The entire cecum was well visualized and appeared normal other than a 3 mm polyp, which was biopsied and completely removed with cold biopsy forceps. The scope was slowly withdrawn assessing all mucosal surfaces carefully. Preparation was excellent. There was transillumination of light deep in the right lower quadrant. I did not visualize any other polyps, colitis, or angiodysplasia. There was a mild amount of sigmoid diverticulosis. In the rectum, scope was retroflexed visualizing internal hemorrhoids, but no other pathology. The rectal mucosa appeared normal. The scope was straightened and withdrawn from the patient. She tolerated the procedure well and was returned to the recovery area in stable condition. IMPRESSION: 1. Small colon polyp, status post biopsy removal. 2. Diverticulosis. 3. Internal hemorrhoids. 4. Hiatal hernia. 5. Gastric polyps. PLAN: The results of the biopsies will be checked. I would recommend a repeat colonoscopy in 5 years. She will continue to use her omeprazole on a p.r.n. basis for reflux. She was advised to resume her aspirin by tomorrow. She will otherwise see me on a p.r.n. basis. This has been discussed with her . MD DIANE Sewell/RUPALI / [phone]
== END 2023-07-28 09:30 | disposition home or self-care (01) ==
PROVIDERS: PCP Internal Medicine; Visit Provider Internal Medicine
PROC: (CPT 45380; principal; 2023-07-28 07:30)
DX: Z12.11 Encounter for screening for malignant neoplasm of colon (principal); Z80.0 Family history of malignant neoplasm of digestive organs; D12.0 Benign neoplasm of cecum; K57.30 Diverticulosis of large intestine without perforation or abscess without bleeding; K64.8 Other hemorrhoids; K21.9 Gastro-esophageal reflux disease without esophagitis; K31.7 Polyp of stomach and duodenum; K44.9 Diaphragmatic hernia without obstruction or gangrene; I10 Essential (primary) hypertension; Z79.1 Long term (current) use of non-steroidal anti-inflammatories (NSAID); Z79.82 Long term (current) use of aspirin; Z79.899 Other long term (current) drug therapy; Z88.5 Allergy status to narcotic agent; Z98.1 Arthrodesis status; Z98.890 Other specified postprocedural states; Z87.891 Personal history of nicotine dependence
CPT/HCPCS: 45380; 43239; 88305; 88342; J3010

== ENCOUNTER 2023-12-04 07:31 | Outpatient (REF) | payer OTHER, SELFPAY ==
[2022-12-27 07:19] VITALS: BP 112/70; BP 126/72; BMI 27.8
--- NOTE | ~2023-12-04 | MM_ITS ---
EXAMINATION: MM SCREENING DIGITAL BREAST TOMOSYNTHESIS, BILATERAL CLINICAL INFORMATION: Screening. Asymptomatic. COMPARISON: Mammography: This study is compared with prior exams dating back to TECHNIQUE: Digital breast tomosynthesis is performed in both the craniocaudal and mediolateral oblique views along with computer-aided detection (CAD). Synthesized 2D images are generated from the tomosynthesis. FINDINGS: The breasts are heterogeneously dense, which may obscure small masses (ACR BI-RADS breast composition Category c). There are vascular calcifications bilaterally. There are no suspicious masses, suspicious grouped calcifications, or areas of architectural distortion in either breast. The parenchymal pattern is stable from prior exams. No skin or axillary findings of concern. MM/MM tomosynthesis screening BI IMPRESSION: No mammographic evidence of malignancy. ASSESSMENT: BI-RADS BI-RADS 2 - Benign Findings RECOMMENDATION: Routine annual mammography screening. 1 year F/U This examination should not preclude the clinical evaluation of a suspicious palpable abnormality. This patient's information was entered into a reminder system with a target due date for their next mammogram.
== END 2023-12-04 07:32 | disposition home or self-care (01) ==
LOC: HO.MAMMO 07:31
PROVIDERS: PCP Registered Nurse; Visit Provider Registered Nurse
DX: Z12.31 Encounter for screening mammogram for malignant neoplasm of breast (principal)
CPT/HCPCS: 77063; 77067

== ENCOUNTER → 2023-12-04 07:45 | Outpatient (BNV) | payer OTHER, SELFPAY ==
[2022-12-27 07:19] VITALS: BP 112/70; BP 126/72; BMI 27.8
== END ==
PROVIDERS: PCP Registered Nurse; Visit Provider Radiology Diagnostic Radiology
DX: Z12.31 Encounter for screening mammogram for malignant neoplasm of breast (principal)
CPT/HCPCS: 77063; 77067

== ENCOUNTER 2024-01-02 10:00 | Outpatient (AMB) | payer OTHER, SELFPAY ==
[2022-12-27 07:19] VITALS: BP 112/70; BP 126/72; BMI 27.8
--- NOTE | 2024-01-02 10:10 | A.OFFVIS_ITS ---
Intake Intake Visit Reasons: left knee cortisone injection Intake Note: Barb is a 63 year old female who presents today for a injection of her left knee. S/P left knee arthroscopy 05/13/21 KI. Patient reports that her last injection gave her a good time of relief. She would like to repeat the injection. Patient informed me that she is having pain in her right knee as well. Allergies morphine [Morphine] Adverse Reaction (Intermediate, Verified 01/02/24 10:12) NAUSEA HPI left knee cortisone injection HPI Details 63-year-old [facility] of left knee pain. I last saw the patient in the office on 08/23/2021 at which time she was discharged and encouraged to continue the home exercise program. Patient has a surgical history of left knee arthroscopy in [address] Freire. [facility] Medical History (Updated 07/28/23 @ 06:32 by Nubia Nelson RN) GERD (gastroesophageal reflux disease) Habitual snoring Elevated cholesterol On anticoagulant therapy On beta ramez at home CAD (coronary artery disease) Exertional angina Lichen sclerosus of vulva COVID-19 vaccine series completed Infection of tooth Family history of complication of anesthesia Osteoarthritis Hypertension Surgical History (Updated 07/26/23 @ 12:16 by Eloise Hoskins RN) Stented coronary artery H/O arthroscopic knee surgery History of fusion of cervical spine History of back surgery H/O colonoscopy Hx of tubal ligation Hx of tonsillectomy Family History Mother Colon cancer History of breast cancer Father Hypertension CVD (cardiovascular disease) Stroke Social History Housing Other:: mobile home Are you a primary landcare facilitator to a significant other at home: No Do you presently have visiting nurse or other home services: No Alcohol intake: current Alcohol intake frequency: a few times a week Patient Tobacco Use Status: Former Tobacco user Quit Date: 2012 Tobacco use type: Cigarette Years Smoked: 30 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al status: employed 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: rt handed[employer] employee Sexual orientation: Straight/Heterosexual Gender identity: Female Female Reproductive History Menstrual Age of Menarche: 14 Review of Systems Const All systems reviewed & are unremarkable except as noted in HPI and below Physical Exam Const General: cooperative and no acute distress Orientation/consciousness: patient oriented x3 Resp Effort & Inspection: normal respiratory effort and able to speak in complete sentences Cardio Peripheral pulses: Peripheral pulses 2+ throughout Skin General skin exam: no rashes or lesions noted Neuro General: patient oriented x3 Extrem Other: Left knee normal to inspection. No ecchymosis, redness, or effusion. Patient is able to demonstrate full knee flexion and extension. Sensation intact. NVI. Office Procedures Joint Injection/Drain Joint Injection/Drain Primary Site: right knee Prep: site was prepped using aseptic technique, ethochloride spray was applied and injection warnings given Injected: 80 mg of, DepoMedrol, with 8 mL of (2% plain lido ) and in the joint Approach Used: anterolateral Procedure: The patient tolerated the procedure well, but had some pain with the injection and there was some relief with the local anesthesia Coding 51290 - Large joint Procedure code (CPT) selection complete Assessment & Plan Assessment & Plan (1) Osteoarthritis of left knee: Code(s): M17.12 - Unilateral primary osteoarthritis, left knee Plan Ms. Eden is a 63-year-old female who presents in the office today for an evaluation of left knee pain. I last saw the patient in the office on 08/23/2021 at which time she was discharged and encouraged to continue the home exercise program. Patient has a surgical history of left knee arthroscopy [place] [address] Freire. The patient was offered a cortisone injection in the left knee with 80 mg of DepoMedrol. The patient was explained the risk, benefits, and alternatives to receiving this injection. After receiving consent for the injection, the patient had the procedure done while in office today. The patient tolerated the procedure well with no complications. Follow up will be PRN, or sooner if needed. X-rays of the left knee which were obtained while in the office today and were reviewed by me, Rosaura Burks PA-C, revealed osteoarthritis. No acute fracture or dislocation. Orders: Orders XR knee LT 3V Today M25.569 - Pain in unspecified knee Patient Instructions: Scribed by Sharla Rehman medical staff assistant, for Rosaura Burks PA-C on 01/02/2024 at 10:15 am, EST. Coding Level of Care Code Est Pt Level 3 (95373) Diagnoses Osteoarthritis of left knee M17.12 CPT Codes Coding - 66570 Large joint: 00488 - Large joint ([id number])
== END 2024-01-02 10:30 | disposition home or self-care (01) ==
PROVIDERS: PCP Registered Nurse; Visit Provider Physician Assistant
DX: M17.12 Unilateral primary osteoarthritis, left knee (principal)
CPT/HCPCS: 20610; 99213

== ENCOUNTER 2024-01-02 10:19 | Outpatient (REF) | payer OTHER, SELFPAY ==
[2022-12-27 07:19] VITALS: BP 112/70; BP 126/72; BMI 27.8
--- NOTE | ~2024-01-02 | XR_ITS ---
EXAMINATION: XR KNEE, LEFT CLINICAL INFORMATION: Pain. COMPARISON: None available. TECHNIQUE: Lateral and axial views of the left knee are submitted, together with an AP upright view of the bilateral knees. FINDINGS: There is narrowing of the left medial and patellofemoral joint space compartments, with peripheral osteophyte formation. The lateral joint space compartment is well-maintained. There is no fracture, dislocation or significant joint effusion. No foreign body is seen. The lateral and medial joint space compartments of the right knee are well-maintained. No significant varus or valgus configuration is seen bilaterally. XR/XR knee LT 3V IMPRESSION: 1. There is mild to moderate osteoarthritic change of the medial and patellofemoral joint space compartments of the left knee. 2. The lateral and medial joint space compartments of the right knee are well-maintained. 3. No significant varus or valgus configuration is seen bilaterally.
== END 2024-01-02 10:20 | disposition home or self-care (01) ==
LOC: HO.HOSX 10:19
PROVIDERS: Visit Provider Physician Assistant
DX: M17.12 Unilateral primary osteoarthritis, left knee (principal)
CPT/HCPCS: 20610; 73562; J1010; J1040

== ENCOUNTER 2024-03-05 10:48 | Outpatient (AMB) | payer OTHER, SELFPAY ==
[2022-12-27 07:19] VITALS: BP 112/70; BP 126/72; BMI 27.8
[2024-03-05 11:04] VITALS: BP 120/80; PULSE 61; BMI 27.8
--- NOTE | 2024-03-05 11:04 | A.OFFVIS_ITS ---
Vital Signs 03/05/24 11:04 Height 5 ft 6 in Weight 171 lb 15.369 oz BMI 27.8 BP 120/80 Blood Pressure Location Lt brachial Position Sitting Pulse 61 Intake Visit Reasons: 1 yr f/up Intake Note: 1 year follow-up with ekg feeling good Flight Manager Required: No Allergies morphine [Morphine] Adverse Reaction (Intermediate, Verified 01/02/24 10:12) NAUSEA Medication List - Last Reconciled 03/05/24 by Scot Salas MD amlodipine 2.5 mg PO DAILY aspirin (Ecotrin Low Strength) 81 mg PO DAILY atorvastatin 80 mg PO BEDTIME hydrochlorothiazide 25 mg PO DAILY hydrocortisone valerate 0.2% 1 appl topical DAILY PRN losartan 50 mg PO DAILY metoprolol succinate ER 100 mg PO DAILY omeprazole 20 mg PO DAILY HPI Comments Details: Barb comes for follow-up. She has been doing well currently. Few months ago she had issues with change in his medication to lisinopril and she started having symptoms of pressure and frequent palpitations. She ended up going to the emergency room was noted to have PVCs. Subsequently she was switch to losartan therapy and since then she has been doing well. She continues to try to maintain activity level as tolerated and has no exertional symptoms of chest pain. Taking all her medications. Denies any lightheadedness, syncope. Denies any prolonged palpitation irregular heartbeat at this point in time. [facility] Medical History GERD (gastroesophageal reflux disease) Habitual snoring Elevated cholesterol On anticoagulant therapy On beta ramez at home CAD (coronary artery disease) Exertional angina Lichen sclerosus of vulva COVID-19 vaccine series completed Infection of tooth Family history of complication of anesthesia Osteoarthritis Hypertension Surgical History Stented coronary artery H/O arthroscopic knee surgery History of fusion of cervical spine History of back surgery H/O colonoscopy Hx of tubal ligation Hx of tonsillectomy Family History Mother Colon cancer History of breast cancer Father Hypertension CVD (cardiovascular disease) Stroke Social History Housing Other:: mobile home Are you a primary wound care nurse to a significant other at home: No Do you presently have visiting nurse or other home services: No Alcohol intake: current Alcohol intake frequency: a few times a week Patient Tobacco Use Status: Former Tobacco user Tobacco use type: Cigarette Years Smoked: 30 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al status: employed 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: rt handed/[employer] employee Sexual orientation: Straight/Heterosexual Gender identity: Female Female Reproductive History Menstrual Age of Menarche: 14 Review of Systems Const Denies chills, Denies fatigue, Denies fever(s), Denies frequent falls, Denies weakness, Denies weight gain and Denies weight loss ENT Denies dizziness Card Denies chest pain, Denies leg edema, Denies lightheadedness, Denies palpitations, Denies dyspnea, Denies dyspnea on exertion, Denies orthopnea and Denies other (loss of consciousness) Resp Denies cough, Denies dyspnea and Denies dyspnea on exertion GI Denies hematochezia and Denies change in stool character Musc Denies abnormal gait, Denies muscle weakness, Denies numbness, Denies radiating pain into limb and Denies tingling Neuro Denies abnormal gait, Denies dizziness, Denies frequent falls, Denies numbness, Denies tingling and Denies weakness Endo Denies fatigue and Denies palpitations Physical Exam Vital Signs: Last Vital Signs Pulse 61 03/05/24 11:04 BP 120/80 03/05/24 11:04 BMI result Body Mass Index 27.8 Const General: cooperative, comfortable, no acute distress, well developed, alert, awake and well groomed Nutritional Appearance: overweight Orientation/consciousness: patient oriented x3 Limitations: no limitations HEENT Head: Yes normocephalic and Yes atraumatic Neck Neck: Yes trachea midline, Yes supple and Yes no JVD Chest Chest palpation & inspection: normal inspection of the chest Resp Effort & Inspection: normal respiratory effort Auscultation: clear to auscultation bilaterally Cardio Jugular venous distension: no JVD Palpation: normal PMI Rate: regular rate Rhythm: regular rhythm Heart sounds: S1 normal heart sound present, S2 normal heart sound present, no click, no gallops and Murmur heart sound present systolic early GI Auscultation: normal bowel sounds Skin General skin exam: no rashes or lesions noted Neuro General: patient oriented x3 and no focal motor deficits Extrem General: Yes no clubbing, cyanosis or edema Psych Appearance: grossly normal Office Procedures EKG Details: EKG shows normal sinus rhythm normal EKG at 61 beats per minute [id number], Complete Assessment & Plan Assessment & Plan (1) CAD (coronary artery disease): Code(s): I25.10 - Atherosclerotic heart disease of [place] coronary artery without angina pectoris Category: Medical Plan: CAD with complex stenting of the LAD for symptoms of angina. This has not recurred and current times with exertional activity. Continue aggressive medical therapy. Continue lifelong aspirin therapy. Continue high-intensity statin therapy with well optimized LDL this point time. Advised lipid panel in near future. Will also suggest a exercise myocardial perfusion imaging next year for stent patency and CAD surveillance. Continue aggressive blood pressure control, see below. Encouraged to continue to participate in physical activity as tolerated. (2) Hypertension: Code(s): I10 - Essential (primary) hypertension Category: Medical Plan: Blood pressure is currently well optimized on current therapy. Importance of good blood pressure control was discussed. Continue current therapy. Low-salt diet was discussed advised to monitor blood pressure at home maintain a log. Goal blood pressure less than 130/84. Stress mitigation strategies were discu ssed. Continue participate in regular physical activity. Will follow up in the clinic in 1 year's time. Thank you for allowing me to partake in the care Orders: Orders CA stress test 1 Year I25.10 - Atherosclerotic heart disease of [place] coronary artery without angina pectoris NM cardiolite stress test 1 Year I25.10 - Atherosclerotic heart disease of [place] coronary artery without angina pectoris Lipid Panel Today I25.10 - Atherosclerotic heart disease of [place] coronary artery without angina pectoris Coding Level of Care Code Est Pt Level 4 (27545) Diagnoses CAD (coronary artery disease) I25.10 Hypertension I10 CPT Codes EKG - CPT: 37664-[id number], Complete ([id number])
== END 2024-03-05 11:37 | disposition home or self-care (01) ==
PROVIDERS: PCP Internal Medicine; Visit Provider Internal Medicine Cardiovascular Disease
DX: I25.10 Atherosclerotic heart disease of native coronary artery without angina pectoris (principal); I10 Essential (primary) hypertension
CPT/HCPCS: 93010; 99214

== ENCOUNTER → 2024-03-05 10:48 | Outpatient (BNVA) | payer OTHER, SELFPAY ==
[2022-12-27 07:19] VITALS: BP 112/70; BP 126/72; BMI 27.8
== END ==
PROVIDERS: PCP Internal Medicine; Visit Provider Internal Medicine Cardiovascular Disease
DX: I25.10 Atherosclerotic heart disease of native coronary artery without angina pectoris (principal); I10 Essential (primary) hypertension; Z79.899 Other long term (current) drug therapy
CPT/HCPCS: 93005

== ENCOUNTER 2024-05-01 15:04 | Outpatient (REF) | payer OTHER, SELFPAY ==
[2024-03-19 08:07] VITALS: BP 112/70; BP 126/72; BMI 27.8
[2024-05-06 12:54] LABS: HPV mRNA E6/E7 Not Detected (Not Detected)
== END 2024-05-01 15:05 | disposition home or self-care (01) ==
LOC: HO.LNP 15:04
PROVIDERS: PCP Internal Medicine; Visit Provider Advanced Practice Midwife
DX: Z01.419 Encounter for gynecological examination (general) (routine) without abnormal findings (principal); Z11.51 Encounter for screening for human papillomavirus (HPV)
CPT/HCPCS: 87624; 88175

== ENCOUNTER 2024-05-01 15:04 | Outpatient (AMB) | payer OTHER, SELFPAY ==
[2022-12-27 07:19] VITALS: BP 112/70; BP 126/72; BMI 27.8
[2024-03-19 08:07] VITALS: BP 112/70; BP 126/72; BMI 27.8
--- NOTE | 2024-05-01 15:07 | MHC.OFFVIS ---
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 She is doing well with no concerns. Uses topical hydrocortisone valerate for her lichen sclerosus as needed, has no itching or irritations. Attempting to eat a healthy diet with calcium and vitamin D and stays active with exercise. Currently not sexually active. Denies any vaginal dryness or irritation. Last pap smear; 2018. Last mammogram; 2023. Colonoscopy is UTD. Denies any family history of ovarian cancer. FH breast an colon cancer. [facility] Medical History (Updated 05/01/24 @ 15:14 by LOIDA Ernandez) Skin cancer GERD (gastroesophageal reflux disease) Habitual snoring Elevated cholesterol On anticoagulant therapy On beta ramez at home CAD (coronary artery disease) Exertional angina Lichen sclerosus of vulva COVID-19 vaccine series completed Infection of tooth Family history of complication of anesthesia Osteoarthritis Hypertension Surgical History Stented coronary artery H/O arthroscopic knee surgery History of fusion of cervical spine History of back surgery H/O colonoscopy Hx of tubal ligation Hx of tonsillectomy Family History Mother Colon cancer History of breast cancer Father Hypertension CVD (cardiovascular disease) Stroke Social History Housing Other:: mobile home Are you a primary associate director career services to a significant other at home: No Do you presently have visiting nurse or other home services: No Alcohol intake: current Alcohol intake frequency: a few times a week Patient Tobacco Use Status: Former Tobacco user Tobacco use type: Cigarette Years Smoked: 30 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al status: employed 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: rt 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[employer] employee Sexual orientation: Straight/Heterosexual Gender identity: Female Female Reproductive History Menstrual Age of Menarche: 14 Menopause type: natural Total pregnancies: 3 Full term: 1 Number of Living Children: 1 Ab induced: 1 Ab spontaneous: 1 Date of last pap smear: 11/07/18 (neg pap and hpv) Date of Mammogram: 12/04/23 (Birad 2) Review of Systems Const All systems reviewed & are unremarkable except as noted in HPI and below Reports as per HPI Eyes Reports no additional complaints ENT Reports no additional complaints Card Reports no additional complaints Resp Reports no additional complaints GI Reports as per HPI and Reports no additional complaints Reports as per HPI Musc Reports no additional complaints Skin/Breast Reports as per HPI Neuro Reports no additional complaints Psych Reports no additional complaints Endo Reports no additional complaints Wilmer/Lymph Reports no additional complaints Aller/Immun Reports no additional complaints Physical Exam Vital Signs: Last Vital Signs BP 150/80 H 05/01/24 15:08 BMI result Body Mass Index 28.1 Const General: cooperative, healthy appearing, no acute distress, well developed and alert Orientation/consciousness: patient oriented x3 HEENT Head: Yes normal to inspection Eyes General: appearance normal, both eyes and all related structures Neck Neck: Yes normal visual inspection Thyroid: Thyroid normal Chest Chest palpation & inspection: normal inspection of the chest and other (no puckering, dimpling, peau de orange, retraction, discharge, masses) Breast/axilla inspection: normal inspection of the breasts Breast/axilla palpation: normal palpation of the breasts Resp Effort & Inspection: normal respiratory effort GI Inspection: Yes normal to inspection Palpation (GI): Soft to palpation Rectal Exam - Female: deferred Other: External-no lesions, excoriations, or erythema, scattered areas of hypopigmentation scarring. General: Yes bladder normal to palpation External Female Exam: normal external appearance and normal appearance of the urethra Speculum Exam - Vagina: normal appearance of the vagina, normal palpation, normal vaginal discharge and vagina atrophic Speculum Exam - Cervix: normal appearance of the cervix, normal palpation and Other cervical findings present (Bled very slightly with Pap, atrophic) Bimanual exam- vagina & uterus: normal bimanual exam, normal palpation, uterine size normal, bladder normal to palpation, normal palpation and non-tender Bimanual Exam- Adnexa, other: no masses Skin General skin exam: no rashes or lesions noted Rashes: no rashes Neuro General: patient oriented x3 Cognition (Neuro): normal cognition Extrem General: Yes normal to inspection Psych Attitude: cooperative Thought process: Normal thought process present Assessment & Plan Assessment & Plan (1) Encounter for well woman exam with routine gynecological exam: Code(s): Z01.419 - Encounter for gynecological examination (general) (routine) without abnormal findings Category: Medical Plan Discussed: Current recommendations for pap smears per ASCCP guidelines. Breast awareness, periodic self breast exams and yearly mammogram. Maintain a healthy lifestyle, well balanced diet including Calcium 1,200 mg and Vitamin D 600 IU daily, and routine exercise. Contact the office with any postmenopausal bleeding. Patient verbalizes understanding and agrees to the plan of care. She was given opportunity to ask questions and all questions were answered to the best of my ability. RTO in 1 year for annual concession attendant exam. This note is constructed using voice recognition software. While every effort has been made to ensure accuracy, excel specialist errors may have been included. Orders: Orders PAP + HPV E6/E7 rfx 18/45 Today Z01.419 - Encounter for gynecological examination (general) (routine) without abnormal findings Coding Level of Care Code Est Pt Prev Care 40-64y(43926) Diagnoses Encounter for well woman exam with routine gynecological exam Z01.419
[2024-05-01 15:08] VITALS: BP 150/80; BMI 28.1
== END 2024-05-01 15:39 | disposition home or self-care (01) ==
PROVIDERS: PCP Internal Medicine; Visit Provider Advanced Practice Midwife
DX: Z01.419 Encounter for gynecological examination (general) (routine) without abnormal findings (principal)
CPT/HCPCS: 99396

== ENCOUNTER 2024-05-07 06:30 | Outpatient (REF) | payer OTHER, SELFPAY ==
[2024-03-19 08:07] VITALS: BP 112/70; BP 126/72; BMI 27.8
[2024-05-07 07:48] LABS: Alanine Aminotransferase 29 U/L (0-31); Albumin Level 4.5 g/dL (3.5-5.0); Alkaline Phosphatase 120 U/L (39-117); Anion Gap 13 (12-20); Aspartate Amino Transferase 25 U/L (5-31); Bilirubin Total 0.6 mg/dL (0.0-1.0); Blood Urea Nitrogen 13 mg/dL (9-16); Calcium 10.2 mg/dL (8.4-10.2); Carbon Dioxide 30 mmol/L (22-29); Chloride 103 mmol/L (96-108); Estimated Glomerular Filt Rate > 60; Glucose Random 100 mg/dL (60-115); Potassium 3.5 mmol/L (3.3-5.1); Sodium 142 mmol/L (135-145); Total Protein 7.3 g/dL (6.5-8.0)
[2024-05-07 07:52] LABS: Estimated Average Glucose 111 mg/dL; Hemoglobin A1c % 5.5 % (<6.0)
== END 2024-05-07 06:31 | disposition home or self-care (01) ==
LOC: HO.LAB 06:30
PROVIDERS: PCP Registered Nurse; Visit Provider Registered Nurse
DX: I10 Essential (primary) hypertension (principal); Z13.1 Encounter for screening for diabetes mellitus
CPT/HCPCS: 36415; 80053; 83036

== ENCOUNTER 2024-09-23 06:46 | Outpatient (REF) | payer OTHER, SELFPAY ==
[2024-03-19 08:07] VITALS: BP 112/70; BP 126/72; BMI 27.8
[2024-09-23 07:58] LABS: Alanine Aminotransferase 26 U/L (0-31); Albumin Level 4.4 g/dL (3.5-5.0); Alkaline Phosphatase 112 U/L (39-117); Anion Gap 15 (12-20); Aspartate Amino Transferase 28 U/L (5-31); Bilirubin Total 0.5 mg/dL (0.0-1.0); Blood Urea Nitrogen 10 mg/dL (9-16); Carbon Dioxide 28 mmol/L (22-29); Chloride 104 mmol/L (96-108); Cholesterol 158 mg/dL (<200); Estimated Glomerular Filt Rate > 60; Glucose Random 100 mg/dL (60-115); HDL Cholesterol 70 mg/dL (>40); LDL Cholesterol Calculated 68 mg/dL (<100); Potassium 4.2 mmol/L (3.3-5.1); Sodium 143 mmol/L (135-145); Total Protein 7.4 g/dL (6.5-8.0); Triglycerides 104 mg/dL (<150)
[2024-09-23 08:20] LABS: HIV AB/AG Nonreactive (Nonreactive); HIV Num 1 0.07 S/CO (0.00-0.99); ~HepC Num1 0.12 S/CO (0.00-0.79); ~Hepatitis C Antibody Nonreactive (Nonreactive)
== END 2024-09-23 06:47 | disposition home or self-care (01) ==
LOC: HO.LAB 06:46
PROVIDERS: PCP Nurse Practitioner Family; Referring Provider Internal Medicine Cardiovascular Disease; Visit Provider Nurse Practitioner Family
DX: Z00.00 Encounter for general adult medical examination without abnormal findings (principal); E66.9 Obesity, unspecified; I10 Essential (primary) hypertension; Z11.4 Encounter for screening for human immunodeficiency virus [HIV]; Z11.59 Encounter for screening for other viral diseases
CPT/HCPCS: 36415; 80053; 80061; 86803; 87389

== ENCOUNTER 2024-10-02 15:00 | Outpatient (AMB) | payer OTHER, SELFPAY ==
[2024-03-19 08:07] VITALS: BP 112/70; BP 126/72; BMI 27.8
[2024-10-02 15:10] VITALS: BP 140/76; PULSE 74; BMI 28.1
--- NOTE | 2024-10-02 15:10 | MHC.OFFVIS ---
Vital Signs 10/02/24 15:10 Height 5 ft 6 in Weight 174 lb 2.643 oz BMI 28.1 BP 140/76 H Blood Pressure Location Lt brachial Position Sitting Pulse 74 Intake Visit Reasons: f/u elevated bp Intake Note: Follow-up elevated bp feeling better Cna Required: No Allergies morphine [Morphine] Adverse Reaction (Intermediate, Verified 05/01/24 15:08) NAUSEA Medication List - Last Reconciled 10/02/24 by Scot Salas MD amlodipine 5 mg (2 x 2.5 mg) PO DAILY aspirin (Ecotrin Low Strength) 81 mg PO DAILY atorvastatin 80 mg PO BEDTIME hydrochlorothiazide 25 mg PO DAILY hydrocortisone valerate 0.2% 1 appl topical DAILY PRN losartan 100 mg PO DAILY metoprolol succinate ER 100 mg PO DAILY omeprazole 20 mg PO DAILY HPI Comments Details: Barb comes for follow-up. Recently noted significantly elevated blood pressure. She ended up going to emergency room twice. Her amlodipine was increased to 5 mg and losartan increased to 100 mg. She has been taking all her medications. Blood pressures been reasonably better controlled although still elevated with blood pressure from 1 40-160 systolic range. She complains of vague discomfort on the left side up for thoracic cavity. She has not had any clear exertional chest pain. During the hospitalization to the ED she has not had any abnormal EKG or troponin elevations. [facility] Medical History Skin cancer GERD (gastroesophageal reflux disease) Habitual snoring Elevated cholesterol On anticoagulant therapy On beta ramez at home CAD (coronary artery disease) Exertional angina Lichen sclerosus of vulva COVID-19 vaccine series completed Infection of tooth Family history of complication of anesthesia Osteoarthritis Hypertension Surgical History Stented coronary artery H/O arthroscopic knee surgery History of fusion of cervical spine History of back surgery H/O colonoscopy Hx of tubal ligation Hx of tonsillectomy Family History Mother Colon cancer History of breast cancer Father Hypertension CVD (cardiovascular disease) Stroke Social History Housing Other:: mobile home Are you a primary women's health care nurse practitioner to a significant other at home: No Do you presently have visiting nurse or other home services: No Alcohol intake: current Alcohol intake frequency: a few times a week Patient Tobacco Use Status: Former Tobacco user Tobacco use type: Cigarette Years Smoked: 30 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al status: employed 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 employee Sexual orientation: Straight/Heterosexual Gender identity: Female Female Reproductive History Menstrual Age of Menarche: 14 Review of Systems Const Denies chills, Denies fatigue, Denies fever(s), Denies frequent falls, Denies weakness, Denies weight gain and Denies weight loss ENT Denies dizziness Card Denies chest pain, Denies leg edema, Denies lightheadedness, Denies palpitations, Denies dyspnea, Denies dyspnea on exertion, Denies orthopnea and Denies other (loss of consciousness) Resp Denies cough, Denies dyspnea and Denies dyspnea on exertion GI Denies hematochezia and Denies change in stool character Musc Denies abnormal gait, Denies muscle weakness, Denies numbness, Denies radiating pain into limb and Denies tingling Neuro Denies abnormal gait, Denies dizziness, Denies frequent falls, Denies numbness, Denies tingling and Denies weakness Endo Denies fatigue and Denies palpitations Physical Exam Vital Signs: Last Vital Signs Pulse 74 10/02/24 15:10 BP 140/76 H 10/02/24 15:10 BMI result Body Mass Index 28.1 Const General: cooperative, comfortable, no acute distress, well developed, alert, awake and well groomed Nutritional Appearance: overweight Orientation/consciousness: patient oriented x3 Limitations: no limitations HEENT Head: Yes normocephalic and Yes atraumatic Neck Neck: Yes trachea midline, Yes supple and Yes no JVD Chest Chest palpation & inspection: normal inspection of the chest Resp Effort & Inspection: normal respiratory effort Auscultation: clear to auscultation bilaterally Cardio Jugular venous distension: no JVD Palpation: normal PMI Rate: regular rate Rhythm: regular rhythm Heart sounds: S1 normal heart sound present, S2 normal heart sound present, no click, no gallops and Murmur heart sound present systolic early GI Auscultation: normal bowel sounds Skin General skin exam: no rashes or lesions noted Neuro General: patient oriented x3 and no focal motor deficits Extrem General: Yes no clubbing, cyanosis or edema Psych Appearance: grossly normal Assessment & Plan Assessment & Plan (1) Uncontrolled hypertension: Code(s): I10 - Essential (primary) hypertension Category: Medical Plan: Recent onset significantly elevated blood pressure uncontrolled question etiology. Need to rule out renal artery stenosis. Will suggest a renal duplex in near future. Meanwhile goals of blood pressure control was discussed. Will increase amlodipine to 7.5 mg daily along with continued hydrochlorothiazide, losartan and metoprolol therapy. Further treatment based on the findings of renal duplex. Advised to continue monitor blood pressure at home and maintain a log. Will gradually uptitrate amlodipine therapy as tolerated. Stress mitigation strategies were discussed. (2) CAD (coronary artery disease): Code(s): I25.10 - Atherosclerotic heart disease of [place] coronary artery without angina pectoris Category: Medical Plan: CAD with nonspecific chest pain. Likelihood of myocardial ischemia is low. Will suggest to continue aggressive medical therapy. Continue aggressive blood pressure control as above. Continue high-intensity statin therapy. Target goal LDL closer to 55 mg/dL. Continue low-dose aspirin therapy for life. If continues to have chest pain despite adequate blood pressure control will require further ischemic workup. Will follow up in the clinic in 3 months time, sooner p.r.n.. Thank you for allowing me to partake in his care Orders: Orders US renal doppler Today I10 - Essential (primary) hypertension Medications: Changed From amlodipine 5 mg (2 x 2.5 mg) PO DAILY 90 tabs 3RF I10 - Essential (primary) hypertension To amlodipine 7.5 mg (3 x 2.5 mg) PO DAILY 90 tabs 3RF I10 - Essential (primary) hypertension Coding Level of Care Code Est Pt Level 4 (77792) Complex EM visit Add On G2211 Diagnoses Uncontrolled hypertension I10 CAD (coronary artery disease) I25.10
== END 2024-10-02 15:40 | disposition home or self-care (01) ==
PROVIDERS: PCP Registered Nurse; Visit Provider Internal Medicine Cardiovascular Disease
DX: I10 Essential (primary) hypertension (principal); I25.10 Atherosclerotic heart disease of native coronary artery without angina pectoris
CPT/HCPCS: 99214

== ENCOUNTER → 2024-10-02 15:00 | Outpatient (BNVA) | payer OTHER, SELFPAY ==
[2024-03-19 08:07] VITALS: BP 112/70; BP 126/72; BMI 27.8
== END ==
PROVIDERS: PCP Registered Nurse; Visit Provider Internal Medicine Cardiovascular Disease

== ENCOUNTER 2024-10-07 10:10 | Outpatient (REF) | payer OTHER, SELFPAY ==
[2024-03-19 08:07] VITALS: BP 112/70; BP 126/72; BMI 27.8
--- NOTE | ~2024-10-07 | US_ITS ---
EXAMINATION: Bilateral renal ultrasound and Doppler CLINICAL INDICATION: Hypertension. COMPARISON: None. TECHNIQUE: Routine grayscale ultrasound imaging of the abdomen was obtained. In addition renal Doppler imaging was performed as well. FINDINGS: Right kidney: The right kidney measures 11.1 x 5.2 x 2.5 cm. There is normal cortical thickness. No echogenic stones, cyst or hydronephrosis seen. Left kidney: The left kidney measures 1.5 x 4.5 x 4.9 cm. There is echogenic calcification or stone in the midpole measuring 0.6 x 0.4 x 0.5 cm. No cyst or solid mass seen. There is no hydronephrosis. RENAL DOPPLER: Right kidney: The proximal renal artery velocity measures 1 36 cm/second, mid segment measures 156 cm/second and distal segment measures 140 cm/second. Renal aortic ratio measures 2.6. The average resistive index is 0.74. Left kidney: The proximal renal artery velocity measures 246 cm/second, mid segment measures 170 cm/sec and and distal segment measures 106 cm/second. Renal artery ratio measures 4.1. Average resistive index measures are 0.73. Mid aortic peak systolic velocity measures 59.8 cm/second. US/US renal doppler IMPRESSION: Anechoic Echogenic stone versus calcification mid pole left kidney. No hydronephrosis seen on either side. Normal right renal Doppler exam. Elevated peak systolic velocity in the proximal left renal artery may be secondary to ostial narrowing or tortuous origin. Left renal aortic ratio is also elevated. Consider follow-up with CTA kidneys. Electronically signed by: Juwan Lam MD 10/09/2024 08:46 AM [facility]
--- NOTE | ~2024-10-07 | US_ITS ---
EXAMINATION: Bilateral renal ultrasound and Doppler CLINICAL INDICATION: Hypertension. COMPARISON: None. TECHNIQUE: Routine grayscale ultrasound imaging of the abdomen was obtained. In addition renal Doppler imaging was performed as well. FINDINGS: Right kidney: The right kidney measures 11.1 x 5.2 x 2.5 cm. There is normal cortical thickness. No echogenic stones, cyst or hydronephrosis seen. Left kidney: The left kidney measures 1.5 x 4.5 x 4.9 cm. There is echogenic calcification or stone in the midpole measuring 0.6 x 0.4 x 0.5 cm. No cyst or solid mass seen. There is no hydronephrosis. RENAL DOPPLER: Right kidney: The proximal renal artery velocity measures 1 36 cm/second, mid segment measures 156 cm/second and distal segment measures 140 cm/second. Renal aortic ratio measures 2.6. The average resistive index is 0.74. Left kidney: The proximal renal artery velocity measures 246 cm/second, mid segment measures 170 cm/sec and and distal segment measures 106 cm/second. Renal artery ratio measures 4.1. Average resistive index measures are 0.73. Mid aortic peak systolic velocity measures 59.8 cm/second. US/US renal BI IMPRESSION: Anechoic Echogenic stone versus calcification mid pole left kidney. No hydronephrosis seen on either side. Normal right renal Doppler exam. Elevated peak systolic velocity in the proximal left renal artery may be secondary to ostial narrowing or tortuous origin. Left renal aortic ratio is also elevated. Consider follow-up with CTA kidneys. Electronically signed by: Juwan Lam MD 10/09/2024 08:46 AM [facility]
== END 2024-10-07 10:11 | disposition home or self-care (01) ==
LOC: HO.US 10:10
PROVIDERS: PCP Registered Nurse; Visit Provider Internal Medicine Cardiovascular Disease
DX: I10 Essential (primary) hypertension (principal)
CPT/HCPCS: 76775; 93975

== ENCOUNTER → 2024-10-07 10:13 | Outpatient (BNV) | payer OTHER, SELFPAY ==
[2024-03-19 08:07] VITALS: BP 112/70; BP 126/72; BMI 27.8
== END ==
PROVIDERS: PCP Registered Nurse; Visit Provider Radiology Diagnostic Radiology
DX: R93.421 Abnormal radiologic findings on diagnostic imaging of right kidney (principal); R93.422 Abnormal radiologic findings on diagnostic imaging of left kidney
CPT/HCPCS: 93975

== ENCOUNTER 2024-10-15 09:43 | Outpatient (REF) | payer OTHER, SELFPAY ==
[2024-03-19 08:07] VITALS: BP 112/70; BP 126/72; BMI 27.8
--- NOTE | ~2024-10-15 | CT_ITS ---
CLINICAL HISTORY: I70.1 - Atherosclerosis of renal artery CT angiography abdomen with contrast Comparison: None Findings: Small number of too small to characterize bilateral renal hypodensities. Kidneys enhance symmetrically without evidence hydronephrosis. Small subcentimeter dystrophic parenchymal calcification at level of right kidney. Mild atherosclerotic aortic calcifications. No evidence of significant stenosis in the visualized arteries. Specifically no evidence of renal arterial stenosis. Mild bibasilar dependent atelectasis. No bowel obstruction. Rest of the visualized abdominal viscera are unremarkable. Spinal degenerative changes. IMPRESSION: No evidence of significant stenosis in the visualized arteries. Specifically no evidence of renal arterial stenosis. This document has been electronically signed by: Elidia Lindo MD on 10/15/2024 12:06:50
[2024-10-15] MEDS: iohexoL 350 MG/ML 100 ML INFUS..BTL IV (10:19)
--- OUTSIDE RECORDS SUMMARY | 2024-10-15 10:40 | XMS_ITS | Clinical Summary ---
Author Organization [facility] Address [address] [place] [address] Care Team Providers Care Booking Prizer Name Role Phone Les Wills Primary Care Provider Allergies No known active allergies Medications cholecalciferol (VITAMIN D3) 2,000 unit capsule Vitamin D CAPS Refills: 0 Active Active metoprolol succinate XL (TOPROL XL) 100 mg tablet 0 01/31/2019 Active hydroCHLOROthia zide (HYDRODIURIL) 25 mg tablet 0 01/31/2019 Active quinapril (ACCUPRIL) 40 mg tablet 0 01/31/2019 Active cyclobenzaprine (FLEXERIL) 10 mg tabletIndicatio ns:S/P lumbar discectomy Take 1 tablet (10 mg total) by mouth nightly as needed for muscle spasms for up to 14 days. 14 tablet 03/01/2019 Active Brilinta 90 mg tablet Take 90 mg by mouth every 12 hours. 11/25/2022 Active aspirin 81 mg EC tablet Take 81 mg by mouth once a day. 06/14/2022 Active atorvastatin (LIPITOR) 80 mg tablet Take 80 mg by mouth every night. 11/21/2022 Active Active Problems Problem Noted Date Diagnosed Date Impaired mobility and ADLs 02/06/2023 Asymmetrical sensorineural hearing loss 05/30/20 14 Subjective tinnitus 05/30/2014 Sudden hearing loss 05/30/2014 Family History Medical History Relation Name Comments Other Father Family history of Aneurysm /Family History of cerebrovascular accident /Family History of cardiac disorder Other Mother Family History of malignant neoplasm of breast /Family History of colon cancer Relation Name Status Comments Father Mother Social History Tobacco Use Types Packs/Day Years Used Date Smoking Tobacco: Former Smokeless Tobacco: Never Tobacco Cessation:Counseling Given: Not Answered Comments:: Alcohol Use Standard Drinks/Week Comments Yes 0 (1 standard drink = 0.6 oz pur e alcohol) Comments Unknown Sex and Gender Information Value Date Recorded Sex Assigned at Female 02/21/2023 11:23 AM EDT Legal Sex Female 12:01 AM EDT Gender Identity Female 02/21/2023 11:23 AM EDT Sexual Orientation Straight 02/21/2023 11 :23 AM EDT Last Filed Vital Signs Vital Sign Reading Time Taken Comments Blood Pressure 167/79 02/07/2023 10:00 AM EDT Pulse 64 02/07/2023 10:00 AM EDT Temperature 36.5 ??C (97.7 ??F) 02/07/2023 10:00 AM E DT Respiratory Rate 18 02/07/2023 10:00 AM EDT Oxygen Saturation 96% 02/07/2023 10:00 AM EDT Inhaled Oxygen Concentration - - Weight 77.1 kg (170 lb) 02/05/2023 7:29 AM EDT Height 167.6 cm (5' 6 ) 02/05/2023 7:29 AM EDT Body Mass Index 27.44 02/05/2023 7:29 AM EDT Plan of Treatment Health Maintenance Due Date Last Done Comments Cologuard 1961 Colon Cancer Screening 1961 Colonoscopy 1961 FOBT / Fit Test 1961 HIV Screening 1961 Hepatitis C Screening 1961 Sigmoidoscopy 1961 DTaP,Tdap,and Td Vaccines (1 - Tdap) 1983 Mammogram 2001 Pap Smear 12/04/2009 12/04/2006, 08/25, 07/27/2001, Additional history exists CT Lung Cancer Screening (Baseline) 2011 Cervical Cancer Screening 12/05/2011 HPV and Pap Smear 12/05/2011 12/04/2006, 09/10/2002 COVID-19 Vaccine ( season) 2024 07/11/2022, 04/14/2022, 06/23/2021, Additional history exists Influenza Vaccine (#1) 2024 2, 06/30/2022, 06/29/2021, Additional history exists Alcohol/Substance Use Screening 09/25/2024 Depression Screening and Follow-Up 09/25/2024 Social Drivers of Health Annual Screening 09/25/2024 RSV Vaccine (60+ years old and patients) (1 - 1-dose 75+ series) 2036 Zoster Vaccines Completed 09/27/2022, 07/11/2022 Hepatitis B Vaccines Aged Out No long er eligible based on patient's age to complete this topic Pneumococcal Vaccine: Pediatric (0-5 Years) and At-Risk Patients (6-64 Years) Aged Out No longer eligible based on patient's age to complete this topic Procedures * Due to [place] [employer] law, this organization might not be sharing negative HIV tests. Procedure Name Priority Date/Time Associated Diagnosis Comments PAP W/REFLEX HPV, CONVERSION Routine 12/04/2006 9:57 AM EDT from Last 3 Months or Most Recently Relevant to Health Maintenance Results * Due to [place] [employer] law, this organization might not be sharing negative HIV tests. * Pap w/Reflex HPV (12/04/2006 9:57 AM EDT) Path Procedure TPGA ([id number]) 1 ?? Edited by: [id number] - 57 [facility] ANATOMIC PATHOLOGY - BIOTECH THREE Specimen Labeled As: 1 CERVICAL/ENDOCERVI MINERVA CYTO MATERIAL - Edited by: [id number] - 57 [facility] ANATOMIC PATHOLOGY - BIOTECH THREE Diagnosis ThinPrep Pap Test ? Adequacy: Satisfactory for evaluation ? Interpretation: Negative for Intraepithelial Lesion or Malignancy ? Remarks/Recommenda tions: ?? This is the result of a morphological screening test with an inherent ?? probability of a false negative interpretation. ??HPV testing in combination ?? with a morphological Pap test reduces the probability of a serious cervical ?? epithelial abnormality in patients over age 35 and is cost-effective. HPV ?? testing can be useful in other clinical applications. ??See Obstetrics and ?? Gynecology 106(3):645-664, 2004. ??This Pap test was examined in accordance ?? with the [facility] Cytopathology Laboratory written policy. ? This Pap test was examined by the [employer] Imaging System, [employer], ?? [facility], [place]. ?? Edited by: [id number] - 0853 [facility] ANATOMIC PATHOLOGY - BIOTECH THREE Gynecologic Clinical Data Specimen source:, THINPREP (CERVICAL AND ENDOCERVICAL) [facility] ANATOMIC PATHOLOGY - BIOTECH THREE Gynecologic Clinical Data First date of LMP:, 3 YRS AGO [facility] ANATOMIC PATHOLOGY - BIOTECH THREE Gynecologic Clinical Data Months/years post menopause:, Y [facility] ANATOMIC PATHOLOGY - BIOTECH THREE Marker 1 MM,CINDY TABOR [facility] ANATOMIC PATHOLOGY - BIOTECH THREE Marker 2 NILM,NILM [facility] ANATOMIC PATHOLOGY - BIOTECH THREE Cc Results To KIRAN LONG [id number] [facility] ANATOMIC PATHOLOGY - BIOTECH THREE Signature REPORT SIGNED: CINDY TABOR 12/07/06 [facility] ANATOMIC PATHOLOGY - BIOTECH THREE Sign Out Audit CINDY TABOR [id number] [place] [id number] [facility] ANATOMIC PATHOLOGY - BIOTECH THREE Cytology / Unknown 7 9:57 AM EDT 12/05/2006 9:57 AM EDT us Tien Mayorga MD LAB HISTORICAL RESULTS Jennifer ramos Result [facility] ANATOMIC PATHOLOGY - BIOTECH THREE [address] [place] [address], from Last 3 Months or Most Recently Relevant to Health Maintenance Insurance [employer] Advance Directives Documents on File Type Date Recorded Patient Gym Supervisor Expl anation Health Care Proxy 02/07/2023 6:19 PM 02-06 Health Care Proxy 02/06/2023 2:21 PM 02-06 * Presumed Full Code (Latest Code Status on File) Date Activated Date Inactivated Comments 02/05/2023 9:43 PM 02/07/2023 4:00 PM Care Teams Booking Prizer Relationship Specialty Start Date End Date Les Wills [address] [place] [address] dr Louisa Jasso, [place] [address] PCP - General Internal Medicine 01/24/19
--- OUTSIDE RECORDS SUMMARY | 2024-10-15 10:40 | XMS_ITS | Referral Summary ---
Author Organization [facility] Address [address] [place] [address] Care Team Providers Care Undergraduate Advisor Name Role Phone Les Wills Primary Care Provider [phone] Allergies No known active allergies Medications cholecalciferol [...] Subjective tinnitus 05/30/2014 Sudden hearing loss 05/30/2014 Social History Tobacco Use Types Packs/Day Years [...] 02/05/2023 7:29 AM EDT Plan of Treatment Not on file Procedures * Due to [place] [employer] law, this organization might not be sharing negative HIV tests. Procedure Name Priority Date/Time Associated Diagnosis Comments PAP W/REFLEX HPV, CONVERSION Routine 12/04/2006 9:57 AM EDT from Last 3 Months or Most Recently Relevant to Health Maintenance Results * Due to [place] [employer] law, this organization might not be sharing negative HIV tests. * Pap w/Reflex HPV (12/04/2006 9:57 AM EDT) Path Procedure TPGA ([id number]) 1 ?? Edited by: [id number] [facility] ANATOMIC PATHOLOGY - BIOTECH THREE Specimen Labeled As: 1 CERVICAL/ENDOCERVI MNIERVA CYTO MATERIAL - Edited by: [id number] [facility] ANATOMIC PATHOLOGY - BIOTECH THREE Diagnosis [...] was examined in accordance ?? with the [facility] Cytopathology Laboratory written policy. ? This Pap test was examined by the [employer] Imaging System, [employer], ?? [place], [place]. ?? Edited by: [id number] - 0853 [facility] ANATOMIC PATHOLOGY - BIOTECH THREE Gynecologic Clinical Data Specimen source:, THINPREP (CERVICAL AND ENDOCERVICAL) [facility] ANATOMIC PATHOLOGY - BIOTECH THREE Gynecologic Clinical Data First date of LMP:, 3 YRS AGO [facility] ANATOMIC PATHOLOGY - BIOTECH THREE Gynecologic Clinical Data Months/years post menopause:, Y [facility] ANATOMIC PATHOLOGY - BIOTECH THREE Marker 1 MM,CINDY TABOR [facility] ANATOMIC PATHOLOGY - BIOTECH THREE Marker 2 NILM,NILM [facility] ANATOMIC PATHOLOGY - BIOTECH THREE Cc Results To KIRAN LONG [id number] [facility] ANATOMIC PATHOLOGY - BIOTECH THREE Signature REPORT SIGNED: CINDY TABOR 12/07/06 [facility] ANATOMIC PATHOLOGY - BIOTECH THREE Sign Out Audit CINDY TABOR [id number] [place] [id number] [facility] ANATOMIC PATHOLOGY - BIOTECH THREE Cytology / Unknown 7 9:57 AM EDT 12/05/2006 9:57 AM EDT us Tien Mayorga MD LAB HISTORICAL RESULTS Jennifer ramos Result [facility] ANATOMIC PATHOLOGY - BIOTECH THREE [address] [place] [address], from Last 3 Months or Most Recently Relevant to Health Maintenance Insurance [employer] Advance Directives Documents on File Type Date Recorded Patient Clinical Admissions Manager Expl anation Health Care Proxy 02/07/2023 6:19 PM 02-06 Health Care Proxy 02/06/2023 2:21 PM 02-06 * Presumed Full Code (Latest Code Status on File) Date Activated Date Inactivated Comments 02/05/2023 9:43 PM 02/07/2023 4:00 PM Care Teams Undergraduate Advisor Relationship Specialty Start Date End Date Les Wills [address] [place] [address] [place] [address] PCP - General Internal Medicine 01/24/19
== END 2024-10-15 09:44 | disposition home or self-care (01) ==
LOC: HO.CT 09:43
PROVIDERS: PCP Registered Nurse; Visit Provider Internal Medicine Cardiovascular Disease
DX: I70.1 Atherosclerosis of renal artery (principal); I10 Essential (primary) hypertension
CPT/HCPCS: 74175; Q9967

== ENCOUNTER → 2024-10-15 09:46 | Outpatient (BNV) | payer OTHER, SELFPAY ==
[2024-03-19 08:07] VITALS: BP 112/70; BP 126/72; BMI 27.8
== END ==
PROVIDERS: PCP Registered Nurse; Visit Provider Radiology Diagnostic Radiology
DX: I70.1 Atherosclerosis of renal artery (principal)
CPT/HCPCS: 74175

== ENCOUNTER 2024-12-17 07:16 | Outpatient (REF) | payer OTHER, SELFPAY ==
[2022-12-27 07:19] VITALS: BP 112/70; BP 126/72; BMI 27.8
[2024-03-19 08:07] VITALS: BP 112/70; BP 126/72; BMI 27.8
--- OUTSIDE RECORDS SUMMARY | 2024-12-17 07:18 | XMS_ITS | Referral Summary ---
Author Organization [facility] Address [address] [place] [address] Care Team Providers Care Salesperson Meats Name Role Phone Les Wills Primary Care Provider [phone] Allergies No known active allergies Medications cholecalciferol [...] Not on file Procedures * Due to [place] [employer] law, this organization might not be sharing negative HIV tests. Procedure Name Priority Date/Time Associated Diagnosis Comments PAP W/REFLEX HPV, CONVERSION Routine 12/04/2006 9:57 AM EDT from Last 3 Months or Most Recently Relevant to Health Maintenance Results * Due to [place] [employer] law, this organization might not be sharing negative HIV tests. * Pap w/Reflex HPV (12/04/2006 9:57 AM EDT) Path Procedure TPGA ([id number]) 1 ?? Edited by: [id number] [facility] ANATOMIC PATHOLOGY - BIOTECH THREE Specimen Labeled As: 1 CERVICAL/ENDOCERVI MINERVA CYTO MATERIAL - Edited by: [id number] [facility] ANATOMIC PATHOLOGY - BIOTECH THREE Diagnosis [...] was examined in accordance ?? with the [facility] Cytopathology Laboratory written policy. ? This Pap test was examined by the [employer] Imaging System, [employer], ?? [place], [place] ?? Edited by: [id number] - 0853 [facility] ANATOMIC PATHOLOGY - BIOTECH THREE Gynecologic Clinical Data Specimen source:, THINPREP (CERVICAL AND ENDOCERVICAL) [facility] ANATOMIC PATHOLOGY - BIOTECH THREE Gynecologic Clinical Data First date of LMP:, 3 YRS AGO [facility] ANATOMIC PATHOLOGY - BIOTECH THREE Gynecologic Clinical Data Months/years post menopause:, Y [facility] ANATOMIC PATHOLOGY - BIOTECH THREE Marker 1 MM,CINDY TABOR [facility] ANATOMIC PATHOLOGY - BIOTECH THREE Marker 2 NILM,NILM [facility] ANATOMIC PATHOLOGY - BIOTECH THREE Cc Results To KIRAN LONG [id number] [facility] ANATOMIC PATHOLOGY - BIOTECH THREE Signature REPORT SIGNED: CINDY TABOR 12/07/06 [facility] ANATOMIC PATHOLOGY - BIOTECH THREE Sign Out Audit CINDY TABOR [id number] [place] [id number] 1615 [facility] ANATOMIC PATHOLOGY - BIOTECH THREE Cytology / Unknown 7 9:57 AM EDT 12/05/2006 9:57 AM EDT us Tien Mayorga MD LAB HISTORICAL RESULTS Jennifer ramos Result [facility] ANATOMIC PATHOLOGY - BIOTECH THREE [address] [place] [address], from Last 3 Months or Most Recently Relevant to Health Maintenance Insurance [employer] Advance Directives Documents on File Type Date Recorded Patient Digital Solutions Architect Expl anation Health Care Proxy 02/07/2023 6:19 PM 02-06 Health Care Proxy 02/06/2023 2:21 PM 02-06 * Presumed Full Code (Latest Code Status on File) Date Activated Date Inactivated Comments 02/05/2023 9:43 PM 02/07/2023 4:00 PM Care Teams Salesperson Meats Relationship Specialty Start Date End Date Les Wills [address] [place] [address] [place] [address] PCP - General Internal Medicine 01/24/19
--- OUTSIDE RECORDS SUMMARY | 2024-12-17 07:18 | XMS_ITS | Clinical Summary ---
Author Organization [facility] Address [address] [place] [address] Care Team Providers Care Monitoring Tech Name Role Phone Les Wills Primary Care Provider [phone] Allergies No known active allergies Medications cholecalciferol [...] exists CT Lung Cancer Screening (Baseline) 2011 Pneumococcal Vaccine: 50+ Years (1 of 1 - PCV) 2011 Cervical Cancer Screening 12/05/2011 HPV and [...] complete this topic Procedures * Due to [place] [employer] law, this organization might not be sharing negative HIV tests. Procedure Name Priority Date/Time Associated Diagnosis Comments PAP W/REFLEX HPV, CONVERSION Routine 12/04/2006 9:57 AM EDT from Last 3 Months or Most Recently Relevant to Health Maintenance Results * Due to [place] [employer] law, this organization might not be sharing negative HIV tests. * Pap w/Reflex HPV (12/04/2006 9:57 AM EDT) Path Procedure TPGA ([id number]) 1 ?? Edited by: [id number] [facility] ANATOMIC PATHOLOGY - BIOTECH THREE Specimen Labeled As: 1 CERVICAL/ENDOCERVI MINERVA CYTO MATERIAL - Edited by: [id number] [facility] ANATOMIC PATHOLOGY - BIOTECH THREE [...] applications. ??See Obstetrics and ?? Gynecology 106(3):645-664, 2005. ??This Pap test was examined in accordance ?? with the [facility] Cytopathology Laboratory written policy. ? This Pap test was examined by the ThinPrep Imaging System, [employer], ?? [place], [place]. ?? Edited by: [id number] - 0844 [facility] ANATOMIC PATHOLOGY - BIOTECH THREE Gynecologic Clinical Data Specimen source:, THINPREP (CERVICAL AND ENDOCERVICAL) [facility] ANATOMIC PATHOLOGY - BIOTECH THREE Gynecologic Clinical Data First date of LMP:, 3 YRS AGO [facility] ANATOMIC PATHOLOGY - BIOTECH THREE Gynecologic Clinical Data Months/years post menopause:, Y [facility] ANATOMIC PATHOLOGY - BIOTECH THREE Marker 1 MM,CINDY TABOR [facility] ANATOMIC PATHOLOGY - BIOTECH THREE Marker 2 NILM,NILM [facility] ANATOMIC PATHOLOGY - BIOTECH THREE Cc Results To KIRAN LONG [id number] [facility] ANATOMIC PATHOLOGY - BIOTECH THREE Signature REPORT SIGNED: CINDY TABOR 12/07/06 [facility] ANATOMIC PATHOLOGY - BIOTECH THREE Sign Out Audit CINDY TABOR [id number] [place] [id number] [facility] ANATOMIC PATHOLOGY - BIOTECH THREE Cytology / Unknown 7 9:57 AM EDT 12/05/2006 9:57 AM EDT us Tien Mayorga MD LAB HISTORICAL RESULTS Jennifer ramos Result [facility] ANATOMIC PATHOLOGY - BIOTECH THREE [address] [place], [place] [id number], [place] from Last 3 Months or Most Recently Relevant to Health Maintenance Insurance [employer] Advance Directives Documents on File Type Date Recorded Patient Cable Mock Up Assembler Expl anation Health Care Proxy 02/07/2023 6:19 PM 02-06 Health Care Proxy 02/06/2023 2:21 PM 02-06 * Presumed Full Code (Latest Code Status on File) Date Activated Date Inactivated Comments 02/05/2023 9:43 PM 02/07/2023 4:00 PM Care Teams Monitoring Tech Relationship Specialty Start Date End Date Les Wills [address] [place] [address] dr Louisa Jasso, [place] [address] PCP - General Internal Medicine 01/24/19
--- OUTSIDE RECORDS SUMMARY | 2024-12-17 07:18 | XMS_ITS | Patient Health Record ---
Author Organization [facility] Address [address] [place] [address] Care Team Providers Care Ring Stamper Name Role Phone Les Wills MD Primary Care Provider Tien Cardenas [phone] Allergies Allergen (clinical drug ingredient) Drug/Non Drug Allergy documented on EMR Reaction Allergy Type Onset Date Status morphine Morphine n/v Drug Allergy Active Reason For Referral No Information Medications Medication SIG (Take, Route, Frequency, Duration) Notes [...] Once a day for 30 day(s) Active Social History Tobacco Use: Social History Observation Description Date Details (start date - stop date) Former Smoker NA - NA Tobacco Use/Smoking Question Answer Notes Patient is [...] Never (0 point) Points 5 Interpretation Positive Section Notes: Occasional; 3 beers QD on a verage 3 beers QD on average , non smoker Problems Problem Type SNOMED Code ICD Code Onset Dates Problem Status W/U Status Risk Notes Problem 318988729 Encounter for screening for malignant neoplasm of colon (Z12.11) Active confirmed Problem Diverticular disease of colon (453648637) Diverticulosis of large intestine without perforation or abscess without bleeding (K57.30) Active confirmed Problem 082307632 Preprocedural examination (Z01.818) Active confirmed Problem 647600305 Family history o f colon cancer (Z80.0) Active confirmed Problem Gastric polyp (36459511) Gastric polyp (K31.7) Active confirmed Problem Gastroesophageal reflux disease (199669991) GERD (gastroesophageal reflux disease) (K21.9) Active confirmed Problem 826527802 Gastroesophageal reflux disease, unspecified whether esophagitis present (K21.9) Active confirmed Plan Of Treatment Future Test Test Name Order Date COLONOSCOPY 08/23/2017 UPPER GI ENDOSCOPY 03/21/2023 COLONOSCOPY 03/21/2023 Insurance Providers Payer Name Payer Address Payer Phone Subscriber Number Group Number Insured Name Patient Relationship to Insured Coverage Start Date Coverage End Date [employer] [facility] [address] [address] [place] [address] [id number] CARRILLO BOATENG Self - patient is the insured Medical (General) History Medical History History ICD Code Denies PR,DM,CVA,Lung disease,renal dise ase Hypertension Neg. screening colonoscopy i n [place] approx. 2004 and neg. colonoscopy [place] [address] Davidsno--hyperplastic polyp and internal hemorrhoids Neck pain Back pain 05/2022 cardiac stent - Dr. Salas--stoppi ng Brilinta in 05/2023 Colonoscopy 10/2017 with a hyperplastic p olyp Surgical History Surgery Date(Month/Year) Tonsillectomy 1966 Cervical fusion 2016 Lumbar back surgery x 4, including L2/L3 --Dr. Dolan 03/09/2023 Left knee meniscus
== END 2024-12-17 07:17 | disposition home or self-care (01) ==
LOC: HO.MAMMO 07:16
PROVIDERS: PCP Registered Nurse; Visit Provider Registered Nurse
DX: Z12.31 Encounter for screening mammogram for malignant neoplasm of breast (principal)
CPT/HCPCS: 77063; 77067

== ENCOUNTER → 2024-12-17 07:30 | Outpatient (BNV) | payer OTHER, SELFPAY ==
[2024-03-19 08:07] VITALS: BP 112/70; BP 126/72; BMI 27.8
== END ==
PROVIDERS: PCP Registered Nurse; Visit Provider Internal Medicine
DX: Z12.31 Encounter for screening mammogram for malignant neoplasm of breast (principal)
CPT/HCPCS: 77063; 77067

== ENCOUNTER 2025-01-14 13:19 | Outpatient (AMB) | payer OTHER, SELFPAY ==
[2024-03-19 08:07] VITALS: BP 112/70; BP 126/72; BMI 27.8
--- NOTE | 2025-01-14 13:27 | MHC.OFFVIS ---
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 She says her blood pressures been now very well controlled with systolic blood pressure in the 130 range with diastolic blood pressure below 80. No renal artery stenosis by imaging. She is feeling a lot better. She noticed some swelling around her lower extremity since increasing in the amlodipine therapy. No other symptoms. No exertional chest pain or shortness of breath. No orthopnea, PND, abdominal distension. No lightheadedness, syncope. [facility] Medical History Skin cancer GERD (gastroesophageal reflux disease) Habitual snoring Elevated cholesterol On anticoagulant therapy On beta ramez at home CAD (coronary artery disease) Exertional angina Lichen sclerosus of vulva COVID-19 vaccine series completed Infection of tooth Family history of complication of anesthesia Osteoarthritis Hypertension Surgical History Stented coronary artery H/O arthroscopic knee surgery History of fusion of cervical spine History of back surgery H/O colonoscopy Hx of tubal ligation Hx of tonsillectomy Family History Mother Colon cancer History of breast cancer Father Hypertension CVD (cardiovascular disease) Stroke Social History Housing Other:: mobile home Are you a primary careers adviser to a significant other at home: No Do you presently have visiting nurse or other home services: No Alcohol intake: current Alcohol intake frequency: a few times a week Patient Tobacco Use Status: Former Tobacco user Tobacco use type: Cigarette Years Smoked: 30 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al status: employed 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: rt handed/[employer] employee Sexual orientation: Straight/Heterosexual Gender identity: Female Female Reproductive History Menstrual Age of Menarche: 14 Review of Systems Const Denies chills, Denies fatigue, Denies fever(s), Denies frequent falls, Denies weakness, Denies weight gain and Denies weight loss ENT Denies dizziness Card Denies chest pain, Denies leg edema, Denies lightheadedness, Denies palpitations, Denies dyspnea and Denies dyspnea on exertion Resp Denies cough, Denies dyspnea and Denies dyspnea on exertion GI Denies hematochezia Musc Denies abnormal gait, Denies muscle weakness, Denies numbness, Denies radiating pain into limb and Denies tingling Neuro Denies abnormal gait, Denies dizziness, Denies frequent falls, Denies numbness, Denies tingling and Denies weakness Endo Denies fatigue and Denies palpitations Physical Exam Vital Signs: Last Vital Signs Pulse 70 01/14/25 13:28 BP 130/70 01/14/25 13:28 BMI result Body Mass Index 28.7 Const General: cooperative, comfortable, no acute distress, well developed, alert, awake and well groomed Nutritional Appearance: overweight Orientation/consciousness: patient oriented x3 Limitations: no limitations HEENT Head: Yes normocephalic and Yes atraumatic Neck Neck: Yes trachea midline, Yes supple and Yes no JVD Chest Chest palpation & inspection: normal inspection of the chest Resp Effort & Inspection: normal respiratory effort Auscultation: clear to auscultation bilaterally Cardio Jugular venous distension: no JVD Palpation: normal PMI Rate: regular rate Rhythm: regular rhythm Heart sounds: S1 normal heart sound present, S2 normal heart sound present, no click, no gallops and Murmur heart sound present systolic early GI Auscultation: normal bowel sounds Skin General skin exam: no rashes or lesions noted Neuro General: patient oriented x3 and no focal motor deficits Extrem General: No clubbing, No cyanosis and Yes edema (Plus one) Psych Appearance: grossly normal Assessment & Plan Assessment & Plan (1) Uncontrolled hypertension: Code(s): I10 - Essential (primary) hypertension Category: Medical Plan: Difficult control blood pressure, currently optimized on increased therapy with amlodipine, metoprolol, losartan and hydrochlorothiazide. She understands the importance of controlling her blood pressure. Continue the same. Low-salt diet was discussed. Stress mitigation strategies were discussed. There is no clear evidence of secondary hypertension especially renovascular hypertension. Advised to continue monitor blood pressure intermittently at home and maintain a log. She developing some side effects related to increase amlodipine therapy. If this becomes intolerable may need to change therapy to a different agent such as spironolactone. This was discussed with her. She understands. Currently continue with current therapy. Use compression stockings. (2) CAD (coronary artery disease): Code(s): I25.10 - Atherosclerotic heart disease of [place] coronary artery without angina pectoris Category: Medical Plan: CAD without any recurrent anginal symptoms. Continue low-dose aspirin therapy. Continue high-intensity statin therapy with target goal LDL less than 55 mg/dL. Continue aggressive blood pressure control as above. Encouraged to maintain activity level as tolerated. Will follow up in the clinic in 6 months time, sooner p.r.n.. Thank you for allowing me to partake in her care Coding Level of Care Code Est Pt Level 4 (12928) Complex EM visit Add On G2211 Diagnoses Uncontrolled hypertension I10 CAD (coronary artery disease) I25.10
[2025-01-14 13:28] VITALS: BP 130/70; PULSE 70; BMI 28.7
--- OUTSIDE RECORDS SUMMARY | 2025-01-14 15:46 | XMS_ITS | Clinical Summary ---
Author Organization [facility] Address [address] [place] [address] Care Team Providers Care Kaiako Kura Tuarua Name Role Phone Les Wills Primary Care Provider [phone] Allergies No known active allergies Medications cholecalciferol [...] 2024 07/11/2022, 04/14/2022, 06/23/2021, Additional history exists Alcohol/Substance Use Screening 09/25/2024 Depression Screening and Follow-Up 09/25/2024 Social Drivers of Health Annual Screening 09/25/2024 Influenza Vaccine (Season Ended) 2025 06/30/2022, 06/30/2022, 06/29/2021, Additional history exists RSV Vaccine (60+ years old and patients) (1 - 1-dose 75+ series) 2036 Zoster Vaccines Completed 09/27/2022, 07/11/2022 Hepatitis B Vaccines Aged Out No long er eligible based on patient's age to complete this topic Procedures * Due to [place] [employer] law, this organization might not be sharing negative HIV tests. Procedure Name Priority Date/Time Associated Diagnosis Comments PAP W/REFLEX HPV, CONVERSION Routine 12/04/2006 9:57 AM EDT from Last 3 Months or Most Recently Relevant to Health Maintenance Results * Due to [place] [employer] law, this organization might not be sharing negative HIV tests. * Pap w/Reflex HPV (12/04/2006 9:57 AM EDT) Path Procedure TPGA ([id number]) 1 ?? Edited by: [id number] [facility]AT[facility] - [facility] Specimen Labeled As: 1 CERVICAL/ENDOCERVI MINERVA CYTO MATERIAL - Edited by: [id number] JOON [facility] ANATOMIC PATHOLOGY - BIOTECH THREE Diagnosis [...] was examined by the ThinPrep Imaging System, [employer], ?? [place], [place]. ?? Edited by: [id number] [facility] ANATOMIC PATHOLOGY - BIOTECH THREE Gynecologic Clinical Data Specimen source:, THINPREP (CERVICAL AND ENDOCERVICAL) [facility]ATOM[facility] PATHOLOGY - [facility] THREE Gynecologic Clinical Data First date of LMP:, 3 YRS AGO [facility]AT[facility] - [facility] Gynecologic Clinical Data Months/years post menopause:, Y [facility] - [facility] Marker 1 MM,CINDY TABOR [facility]ATOM[facility] - BI[facility] THREE Marker 2 NILM,NILM [facility] ANATOMIC PATHOLOGY - BIOTECH THREE Cc Results To KIRAN LONG [id number] [facility] - [facility] THREE Signature REPORT SIGNED: CINDY TABOR 12/07/06 [facility] - [facility] Sign Out Audit CINDY TABOR [id number] [place] [place] [id number] [facility]AT[facility] - [facility] THREE Cytology / Unknown 7 9:57 AM EDT 12/05/2006 9:57 AM EDT us Tien Mayorga MD LAB HISTORICAL RESULTS Jennifer ramos Result [facility] ANATOMIC PATHOLOGY - BIOTECH THREE [address] [place], [place] [id number], [place] from Last 3 Months or Most Recently Relevant to Health Maintenance Insurance [employer] Advance Directives Documents on File Type Date Recorded Patient Personnel Coordinator Expl anation Health Care Proxy 02/07/2023 6:19 PM 02-06 Health Care Proxy 02/06/2023 2:21 PM 02-06 * Presumed Full Code (Latest Code Status on File) Date Activated Date Inactivated Comments 02/05/2023 9:43 PM 02/07/2023 4:00 PM Care Teams Kaiako Kura Tuarua Relationship Specialty Start Date End Date Les Wills [address] [place] [address] dr Louisa Jasso, [place] [address] PCP - General Internal Medicine 01/24/19
--- OUTSIDE RECORDS SUMMARY | 2025-01-14 15:46 | XMS_ITS | Referral Summary ---
Author Organization [facility] Address [address] [place] [address] Care Team Providers Care Locomotive Mechanic Name Role Phone Les Wills Primary Care Provider [phone] Allergies No known active allergies Medications cholecalciferol [...] Not on file Procedures * Due to [place] [employer] law, this organization might not be sharing negative HIV tests. Procedure Name Priority Date/Time Associated Diagnosis Comments PAP W/REFLEX HPV, CONVERSION Routine 12/04/2006 9:57 AM EDT from Last 3 Months or Most Recently Relevant to Health Maintenance Results * Due to [place] [employer] law, this organization might not be sharing negative HIV tests. * Pap w/Reflex HPV (12/04/2006 9:57 AM EDT) Path Procedure TPGA ([id number]) 1 ?? Edited by: [id number] [facility]ATOMIC PATHOLOGY - [facility]OTE[facility] THREE Specimen Labeled As: 1 CERVICAL/ENDOCERVI MINERVA CYTO MATERIAL - Edited by: [id number] [facility]ATOMIC PATHOLOGY - [facility] THREE Diagnosis ThinPrep [...] was examined in accordance ?? with the [facility] Cytopathology Laboratory written policy. ? This Pap test was examined by the [facility] Imaging System, [employer], ?? [place], [place]. ?? Edited by: [id number] - [id number] [facility] ANATOMIC PATHOLOGY - BIOTECH THREE Gynecologic Clinical Data Specimen source:, THINPREP (CERVICAL AND ENDOCERVICAL) [facility]ATOM[facility] PATHOLOG[facility] - [facility] Gynecologic Clinical Data First date of LMP:, 3 YRS AGO [facility]ATOM[facility] - [facility] Gynecologic Clinical Data Months/years post menopause:, Y [facility] - [facility] Marker 1 MM,CINDY TABOR [facility]ATOM[facility] PATHOLOG[facility] - BI[facility] THREE Marker 2 NILM,NILM [facility] ANATOMIC PATHOLOGY - [facility] THREE Cc Results To KIRAN LONG [id number] [facility] ANATOMIC PATHOLOGY - [facility] THREE Signature REPORT SIGNED: CINDY TABOR 12/07/06 [facility]ATOM[facility] PATHOLOGY - [facility] THREE Sign Out Audit CINDY TABOR [id number] [place] [place] [id number] [facility] ANATOM[facility] PATHOLOGY - [facility] THREE Cytology / Unknown 7 9:57 AM EDT 12/05/2006 9:57 AM EDT us Tien Mayorga MD LAB HISTORICAL RESULTS Jennifer ramos Result [facility] ANATOMIC PATHOLOGY - BIOTECH THREE [address] [place] [address], from Last 3 Months or Most Recently Relevant to Health Maintenance Insurance [employer] Advance Directives Documents on File Type Date Recorded Patient Brand Sales Manager Expl anation Health Care Proxy 02/07/2023 6:19 PM 02-06 Health Care Proxy 02/06/2023 2:21 PM 02-06 * Presumed Full Code (Latest Code Status on File) Date Activated Date Inactivated Comments 02/05/2023 9:43 PM 02/07/2023 4:00 PM Care Teams Locomotive Mechanic Relationship Specialty Start Date End Date Les Wills [address] [place] [address] [place] [address] PCP - General Internal Medicine 01/24/19
== END 2025-01-14 14:01 | disposition home or self-care (01) ==
LOC: HO.HCS 13:20
PROVIDERS: PCP Registered Nurse; Visit Provider Internal Medicine Cardiovascular Disease
DX: I10 Essential (primary) hypertension (principal); I25.10 Atherosclerotic heart disease of native coronary artery without angina pectoris
CPT/HCPCS: 99214

== ENCOUNTER → 2025-01-14 13:19 | Outpatient (BNVA) | payer OTHER, SELFPAY ==
[2024-03-19 08:07] VITALS: BP 112/70; BP 126/72; BMI 27.8
== END ==
PROVIDERS: PCP Registered Nurse; Visit Provider Internal Medicine Cardiovascular Disease

== ENCOUNTER 2025-03-11 15:37 | Outpatient (REF) | payer OTHER, SELFPAY ==
[2024-03-19 08:07] VITALS: BP 112/70; BP 126/72; BMI 27.8
--- NOTE | ~2025-03-11 | XR_ITS ---
EXAMINATION: XR SHOULDER, RIGHT CLINICAL INFORMATION: M25.511 - Pain in right shoulder COMPARISON: 03/03/2021 TECHNIQUE: Three views of the right shoulder. FINDINGS: Normal bone mineralization. No fracture, dislocation, or suspicious bone lesion. Normal alignment. The glenohumeral joint is normal. The AC joint demonstrates mild arthritic spurring. There is a type II acromion. No undersurface spurring. The subacromial space is preserved. Remainder of the soft tissue and bony structures appear normal. XR/XR shoulder RT min 2V IMPRESSION: 1. No acute bony abnormalities. Mild arthritic spurring of the AC joint. Electronically signed by: Jey Silva MD 03/11/2025 04:16 PM EDT
== END 2025-03-11 15:38 | disposition home or self-care (01) ==
LOC: HO.HMGCX 15:37
PROVIDERS: PCP Nurse Practitioner Family; Visit Provider Physician Assistant
DX: M25.511 Pain in right shoulder (principal)
CPT/HCPCS: 73030

== ENCOUNTER 2025-03-11 15:37 | Outpatient (AMB) | payer OTHER, SELFPAY ==
[2024-03-19 08:07] VITALS: BP 112/70; BP 126/72; BMI 27.8
--- NOTE | 2025-03-11 15:41 | MHC.OFFWIV ---
Intake Vital Signs 03/11/25 15:42 Height 5 ft 6 in Weight 178 lb 2 oz BMI 28.7 BP 134/80 Blood Pressure Location Rt brachial Position Sitting Pulse 72 Pulse Source Pulse Oximeter Temp 98.0 F Temp Source Oral Pulse Oximetry (%) 95 Oxygen Delivery Method Room Air Intake Visit Reasons: EP-rt arm/shoulder pain Intake Note: Patient present with right arm pain times 1 day.On Monday patient fell off a ramp Patient Tobacco Use Status: Former Tobacco user Maintenance Service Supervisor Required: No Allergies morphine [Morphine] Adverse Reaction (Intermediate, Verified 03/11/25 15:46) NAUSEA Do you need a note to return to daycare/school/sports/work: No HPI HPI Comments History of Present Illness Details History of Present Illness - The patient is a 64-year-old female presenting with right shoulder and elbow pain following a fall. - The fall occurred three days ago due to slipping on a wet surface, resulting in impact on the right elbow and shoulder. - Initial pain was noted in the right elbow and wrist, with the shoulder pain becoming more apparent later. - The patient reports that the shoulder pain is exacerbated by certain movements, particularly lifting the arm. - Ice has been used as a conservative treatment, with no use of a sling or other supportive devices. - The patient has a history of rotator cuff tendinitis and has received injections in the past, last one was 2020. - Past medical history includes a meniscus tear and knee arthritis, with surgical intervention on the left knee. Physical Exam General: Cooperative, healthy appearing, comfortable, no acute distress and well developed Orientation: Patient oriented x3 Limitations: No limitations Head: Normal to inspection Ears: Hearing grossly normal bilaterally Face and sinus: Normal facial exam Eyes: Appearance normal, both eyes and all related structures Neck: Normal visual inspection, full ROM Respiratory: Normal respiratory effort and able to speak in complete sentences. Skin: No rashes or lesions noted Neuro: Patient oriented x3, gait normal Back/spine: no TTP cervical, thoracic or lumbar spine, TTP right shoulder where the biceps inserts, negative empty can, negative lift off, no pain with external rotation of right shoulder [facility] Medical History Skin cancer GERD (gastroesophageal reflux disease) Habitual snoring Elevated cholesterol On anticoagulant therapy On beta ramez at home CAD (coronary artery disease) Exertional angina Lichen sclerosus of vulva COVID-19 vaccine series completed Infection of tooth Family history of complication of anesthesia Osteoarthritis Hypertension Surgical History Stented coronary artery H/O arthroscopic knee surgery History of fusion of cervical spine History of back surgery H/O colonoscopy Hx of tubal ligation Hx of tonsillectomy Family History Mother Colon cancer History of breast cancer Father Hypertension CVD (cardiovascular disease) Stroke Social History Housing Other:: mobile home Are you a primary health care specialist to a significant other at home: No Do you presently have visiting nurse or other home services: No Alcohol intake: current Alcohol intake frequency: a few times a week Patient Tobacco Use Status: Former Tobacco user Tobacco use type: Cigarette Years Smoked: 30 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al status: employed 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: rt handed/[employer] employee Sexual orientation: Straight/Heterosexual Gender identity: Female Female Reproductive History Menstrual Age of Menarche: 14 Review of Systems Const All systems reviewed & are unremarkable except as noted in HPI and below Physical Exam Vital Signs: Last Vital Signs Temp 98.0 F 03/11/25 15:42 Pulse 72 03/11/25 15:42 BP 134/80 03/11/25 15:42 Pulse Ox 95 03/11/25 15:42 Oxygen Delivery Method Room Air 03/11/25 15:42 BMI result Body Mass Index 28.7 Assessment & Plan Assessment & Plan (1) Right anterior shoulder pain: Code(s): M25.511 - Pain in right shoulder Plan: Patient was informed and verbally consented to the use of an ambient scribe for clinic note documentation during this visit. 1. Right Shoulder Pain - An x-ray of the right shoulder was ordered to rule out fractures or other structural damage. - Meloxicam was prescribed for pain management and inflammation reduction, with instructions to avoid other NSAIDs. - A sling has been provided, recommended patient use it for the next few days and do [id number] exercises daily and then wean herself off of it over the next 7-10 days. - My interpretation of XR is no acute fx or dislocation, pending final Rads read. - Follow up with PCP if no improvement in pain over the coming weeks. (2) Fall: Code(s): W19.XXXA - Unspecified fall, initial encounter Qualifiers: Encounter type: initial encounter Qualified Code(s): W19.XXXA - Unspecified fall, initial encounter Plan: as above Orders: Orders XR shoulder RT min 2V Today M25.511 - Pain in right shoulder, W19.XXXA - Unspecified fall, initial encounter Medications: New meloxicam 15 mg PO DAILY PRN 15 tabs 0RF pain, moderate Coding Level of Care Code New Pt Level 4 (86159) Diagnoses Right anterior shoulder pain M25.511 Fall, initial encounter W19.XXXA Encounter type: initial encounter
[2025-03-11 15:42] VITALS: BP 134/80; PULSE 72; TEMP 36.7; O2SAT 95; BMI 28.7
--- OUTSIDE RECORDS SUMMARY | 2025-03-11 18:06 | XMS_ITS | Clinical Summary ---
Author Organization [facility] Address [address] [place] [address] Care Team Providers Care Lsat Instructor Name Role Phone Les Wills Primary Care Provider [phone] Allergies No known active allergies Medications cholecalciferol [...] this topic Procedures * Due to [place] [employer] law, this organization might not be sharing negative HIV tests. Procedure Name Priority Date/Time Associated Diagnosis Comments PAP W/REFLEX HPV, CONVERSION Routine 12/04/2006 9:57 AM EDT from Last 3 Months or Most Recently Relevant to Health Maintenance Results * Due to [place] [employer] law, this organization might not be sharing negative HIV tests. * Pap w/Reflex HPV (12/04/2006 9:57 AM EDT) Path Procedure TPGA ([id number]) 1 ?? Edited by: [id number] [facility] ANATOMIC PATHOLOGY - [facility] THREE Specimen Labeled As: 1 CERVICAL/ENDOCERVI MINERVA CYTO MATERIAL - Edited by: [id number] JOON [facility] ANATOMIC PATHOLOGY - BIOTECH THREE Diagnosis [...] was examined in accordance ?? with the [facility] written policy. ? This Pap test was examined by the ThinPrep Imaging System, [employer], ?? [place], [place]. ?? Edited by: [id number] [facility] ANATOMIC PATHOLOGY - BIOTECH THREE Gynecologic Clinical Data Specimen source:, THINPREP (CERVICAL AND ENDOCERVICAL) [facility] ANATOMIC PATHOLOGY - [facility] THREE Gynecologic Clinical Data First date of LMP:, 3 YRS AGO [facility]ATOMIC PATHOLOGY - [facility] THREE Gynecologic Clinical Data Months/years post menopause:, Y [facility]ATOMIC PATHOLOG[facility] - [facility] THREE Marker 1 MM,CINDY TABOR [facility]ATOM[facility] PATHOLOG[facility] - [facility] THREE Marker 2 NILM,NILM [facility] ANATOMIC PATHOLOGY - [facility] THREE Cc Results To KIRAN LONG [id number] [facility] ANATOMIC PATHOLOGY - [facility] THREE Signature REPORT SIGNED: CINDY TABOR 12/07/06 [facility] ANATOMIC PATHOLOG[facility] - [facility] THREE Sign Out Audit CINDY TABOR [id number] [place] [place] [id number] [facility] ANATOMIC PATHOLOGY - [facility]OTECH THREE Cytology / Unknown 7 9:57 AM EDT 12/05/2006 9:57 AM EDT us Tien Mayorga MD LAB HISTORICAL RESULTS Jennifer ramos Result [facility] ANATOMIC PATHOLOGY - [facility]OTE[facility] THREE [address] [place], [place] [id number], [place] from Last 3 Months or Most Recently Relevant to Health Maintenance Insurance [employer] Advance Directives Documents on File Type Date Recorded Patient Qc Tech Expl anation Health Care Proxy 02/07/2023 6:19 PM 02-06 Health Care Proxy 02/06/2023 2:21 PM 02-06 * Presumed Full Code (Latest Code Status on File) Date Activated Date Inactivated Comments 02/05/2023 9:43 PM 02/07/2023 4:00 PM Care Teams Lsat Instructor Relationship Specialty Start Date End Date Les Wills [address] [place] [address] dr Louisa Jasso, [place] [address] PCP - General Internal Medicine 01/24/19
== END 2025-03-11 16:39 | disposition home or self-care (01) ==
PROVIDERS: PCP Nurse Practitioner Family; Visit Provider Physician Assistant
DX: M25.511 Pain in right shoulder (principal); W19.XXXA Unspecified fall, initial encounter

== ENCOUNTER → 2025-03-11 16:02 | Outpatient (BNV) | payer OTHER, SELFPAY ==
[2024-03-19 08:07] VITALS: BP 112/70; BP 126/72; BMI 27.8
== END ==
PROVIDERS: PCP Nurse Practitioner Family; Visit Provider Radiology Diagnostic Radiology
DX: M25.711 Osteophyte, right shoulder (principal)
CPT/HCPCS: 73030

== ENCOUNTER 2025-03-24 11:33 | Outpatient (AMB) | payer OTHER, SELFPAY ==
[2025-03-19 09:14] VITALS: BP 112/70; BP 126/72; BMI 27.8
--- NOTE | 2025-03-24 11:36 | A.OFFPC_ITS ---
Vital Signs 03/24/25 11:42 03/24/25 13:00 Height 5 ft 6 in Weight 80.286 kg BMI 28.6 BP 152/92 H 138/70 Respiration 16 Pulse 77 Pulse Source Pulse Oximeter Temp 97.0 F Temp Source Temporal Artery Scan Pulse Oximetry (%) 99 Oxygen Delivery Method Room Air Intake Visit Reasons: routine Device Processing Engineer Required: No Accompanied by: Self / Same As Patient Allergies morphine (Morphine) Adverse Reaction (Intermediate, Verified 03/24/25 11:37) NAUSEA HPI HPI Comments History of Present Illness Details 64 year old female with history of CAD, HTN, HLD, skin cancer, gerd presents to the office today for management of chronic conditions and to establish care. She is transferring from [facility]. HTN- hx uncontrolled htn. Compliant with amlodipine 10mg daily, toprol 100mg daily, losartan 100mg daily. Takes bp at home and is around 130/70. Initially BP high in the office, but controlled on recheck with bp 138/70. Reports edema ble from amlodipine and has ordered compression socks. HLD/CAD- h/o PCI with SHEILA too LAD 05/2022. Follows with Dr. Salas. On asa, atorvastatin, and toprol. No anginal chest pain Gerd- on ppi Chronic low back pain with LLE neuropathy Concerns: L ear ache ongoing x years. Intermittent. No associated hearing loss, tinnitus, sharp pain, sinus pressure, vertigo. No fevers, chills Health maintenance: Last mammo- 12/17/24, 1 year follow up, negative for malignancy Last colonoscopy- 07/28/25 with 5 year follow up, tubular adenoma Last pap- 05/01/2024, 5 year follow up ROS: General: No fevers, malaise, unintentional weight loss HEENT: see hpi Cardiovascular: No chest pain, palpitations, or leg edema Respiratory: No shortness of breath, wheezing, cough GI: No abdominal pain, nausea, vomiting, diarrhea, constipation, melena, hematochezia : No dysuria, hematuria, increased urinary frequency, decreased urinary output MSK: see hpi Neuro: No headaches, weakness, paresthesias Skin: No rashes or lesions EXAM: Constitutional - Awake and Alert, No apparent distress Eyes - PERRL Ears - external ears normal, canals clear, tm's pearly kapoor and in tact with good cone of light Cardiovascular - S1S2, RRR, No edema Respiratory - Normal lung expansion, Normal respiratory effort, No respiratory distress, CTA bilaterally Extremities - no calf tenderness bilaterally, no swelling Skin - Warm/Dry Neurological - Alert & oriented x3 Psychological - Appropriate affect [facility] Medical History (Updated 03/24/25 @ 12:11 by CHUCKY Ott) Chronic left ear pain Skin cancer GERD (gastroesophageal reflux disease) Habitual snoring Elevated cholesterol On anticoagulant therapy On beta ramez at home CAD (coronary artery disease) Exertional angina Lichen sclerosus of vulva COVID-19 vaccine series completed Infection of tooth Family history of complication of anesthesia Osteoarthritis Hypertension Surgical History Stented coronary artery H/O arthroscopic knee surgery History of fusion of cervical spine History of back surgery H/O colonoscopy Hx of tubal ligation Hx of tonsillectomy Family History Mother Colon cancer History of breast cancer Father Hypertension CVD (cardiovascular disease) Stroke Social History Housing Other:: mobile home Are you a primary career developer to a significant other at home: No Do you presently have visiting nurse or other home services: No Alcohol intake: current Alcohol intake frequency: a few times a week Patient Tobacco Use Status: Former Tobacco user Tobacco use type: Cigarette Years Smoked: 30 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al status: employed 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 1. Little interest or pleasure in doing things: not at all 2. Feeling down, depressed, or hopeless: not at all 3. Trouble falling or staying asleep, or sleeping too much: not at all 4. Feeling tired or having little energy: not at all 5. Poor appetite or overeating: not at all 6. Feeling bad about yourself - or that you are a failure or have let yourself or your family down: not at all 7. Trouble concentrating on things, such as reading the newspaper or watching television: not at all 8. Moving or speaking so slowly that other people could have noticed. Or the opposite - being so fidgety or restless that you have been moving around a lot more than usual: not at all 9. Thoughts that you would be better off or of hurting yourself in some way: not at all Total score: 0 Source: Developed by Drs. Tien Garcia, Louisa John, Patrice Lobo and colleagues, with an educational hussain from [employer]. Thrive Questionnaire Date Thrive assessed: 03/24/25 I am a: Patient What is your living situation today?: I have a steady place to live Within the past 12 months, did the food you bought not last and you didn't have the money to get more?: Never true Within the past 12 months, did you worry whether your food would run out before you got money to buy more?: Never true Do you have trouble paying for medicines?: No Do you have trouble getting transportation to medical appointments?: No Do you have trouble paying your heating and electricity bill?: No Do you have trouble taking care of your child, family member or friend?: No Do you have trouble with day-to-day activities such as bathing, preparing meals, shopping, managing finances, etc.?: No Are you currently unemployed and looking for a job?: No Are you interested in more education?: No THRIVE Score: 0 UMER-7 AMB Questionnaire UMER-7 Date UMER - 7 assessed: 03/24/25 Feeling nervous, anxious, or on edge: 0 = Not at all Not being able to stop or control worryin = Not at all Worrying too much about different things: 0 = Not at all Trouble relaxin = Not at all Being so restless that it is hard to sit still: 0 = Not at all Becoming easily annoyed or irritable: 0 = Not at all Feeling afraid as if something awful might happen: 0 = Not at all Total UMER-7 score (0-4 normal; 5-9 mild; 10-14 moderate; 15-21 severe): 0 Source: Developed by Drs. Tien Garcia, Louisa John, Patrice Lobo and colleagues, with an educational hussain from [employer]. Physical exam (Primary Care) Vital Signs: Last Vital Signs Temp 97.0 F 03/24/25 11:42 Pulse 77 03/24/25 11:42 Resp 16 03/24/25 11:42 BP 138/70 03/24/25 13:00 Pulse Ox 99 03/24/25 11:42 Oxygen Delivery Method Room Air 03/24/25 11:42 BMI result Body Mass Index 28.6 Tobacco/Smoking Status: Tobacco use Status Patient Tobacco Use Status Former Tobacco user 03/24/25 11:39 Tobacco use type Cigarette 03/24/25 11:39 PHQ-9: PHQ-9 Score PHQ-9: Total score 0 03/24/25 13:03 Thrive Assessment: Date of Thrive Assessment Date Thrive assessed 03/24/25 03/24/25 11:48 Coding Level of Care Code New Pt Level 4 (00357) Complex EM visit Add On G2211 Diagnoses Hypertension I10 CAD (coronary artery disease) I25.10 Chronic left ear pain H92.02; G89.29 Lumbar disc herniation with radiculopathy M51.16 Assessment & Plan Assessment & Plan (1) Hypertension: Code(s): I10 - Essential (primary) hypertension Category: Medical Plan: Controlled on recheck. Continue amlodipine, losartan, hydrochlorothiazide, meto prolol. Low-sodium diet (2) CAD (coronary artery disease): Code(s): I25.10 - Atherosclerotic heart disease of [place] coronary artery without angina pectoris Category: Medical Plan: Stable. Reviewed last Cardiology note. Present for stress test as scheduled. Continue ASA, statin, beta-ramez. Continue following with cardiology (3) Chronic left ear pain: Code(s): H92.02 - Otalgia, left ear; G89.29 - Other chronic pain Category: Medical Plan: No evidence of infection in the left ear. Etiology unclear. Referred to ENT. (4) Lumbar disc herniation with radiculopathy: Code(s): M51.16 - Intervertebral disc disorders with radiculopathy, lumbar region Category: Medical Plan: Stable. Not interested in therapies at this time but will contact the office should anything change. Plan Follow up in the office in 6 months. Previous labs reviewed Orders: Referrals Ear/Nose/Throat Referral G89.29 - Other chronic pain, H92.02 - Otalgia, left ear
[2025-03-24 11:42] VITALS: BP 152/92; PULSE 77; RESP 16; TEMP 36.1; O2SAT 99; BMI 28.6
--- OUTSIDE RECORDS SUMMARY | 2025-03-24 12:27 | XMS_ITS | Clinical Summary ---
Author Organization [facility] Address [address] [place] [address] Care Team Providers Care Boiler House Supervisor Name Role Phone Les Wills Primary Care Provider [phone] Allergies No known active allergies Medications cholecalciferol [...] 64 02/07/2023 10:00 AM EDT Temperature 36.5 C (97.7 F) 02/07/2023 10:00 AM EDT Respiratory Rate 18 02/07/2023 10:00 AM EDT [...] complete this topic Procedures * Due to [facility] law, this organization might not be sharing negative HIV tests. Procedure Name Priority Date/Time Associated Diagnosis Comments PAP W/REFLEX HPV, CONVERSION Routine 12/04/2006 9:57 AM EDT from Last 3 Months or Most Recently Relevant to Health Maintenance Results * Due to [place] [employer] law, this organization might not be sharing negative HIV tests. * Pap w/Reflex HPV (12/04/2006 9:57 AM EDT) Path Procedure TPGA ([id number]) 1 Edited by: [id number] 956 [address] [facility] ANATOMIC PATHOLOGY - BIOTECH THREE Specimen Labeled As: 1 CERVICAL/ENDOCERVI MINERVA CYTO MATERIAL - Edited by: [id number] JOON [facility] ANATOMIC PATHOLOGY - BIOTECH THREE Diagnosis ThinPrep Pap Test Adequacy: Satisfactory for evaluation Interpretation: Negative for Intraepithelial Lesion or Malignancy Remarks/Recommenda tions: This is the result of a morphological screening test with an inherent probability of a false negative interpretation. HPV testing in combination with a morphological Pap test reduces the probability of a serious cervical epithelial abnormality in patients over age 35 and is cost-effective. HPV testing can be useful in other clinical applications. See Obstetrics and Gynecology 106(3):645-664, 2005. This Pap test was examined in accordance with the [facility] Cytopathology Laboratory written policy. This Pap test was examined by the ThinPrep Imaging System, [employer], [place], [place]. Edited by: [id number] [facility] ANATOMIC PATHOLOGY - BIOTECH THREE Gynecologic Clinical Data Specimen source:, THINPREP (CERVICAL AND ENDOCERVICAL) [facility] ANATOMIC PATHOLOGY - BIOTECH THREE Gynecologic Clinical Data First date of LMP:, 3 YRS AGO [facility] ANATOMIC PATHOLOGY - BIOTECH THREE Gynecologic Clinical Data Months/years post menopause:, Y [facility] ANATOMIC PATHOLOGY - BIOTECH THREE Marker 1 MM,CINDY TABOR [facility] ANATOMIC PATHOLOGY - BIOTECH THREE Marker 2 NILM,NILM [facility] ANATOMIC PATHOLOGY - BIOTECH THREE Cc Results To KIRAN LONG [id number] [facility] ANATOMIC PATHOLOGY - BIOTECH THREE Signature REPORT SIGNED: ICNDY TABOR 12/07/06 [facility] ANATOMIC PATHOLOGY - BIOTECH THREE Sign Out Audit SHARONACINDY [id number] [place]AL [place] [id number] [facility] ANATOMIC PATHOLOGY - BIOTECH THREE Cytology / Unknown 7 9:57 AM EDT 12/05/2006 9:57 AM EDT Tien Mayorga MD LAB HISTORICAL RESULTS Jennifer ramos Result [facility] ANATOMIC PATHOLOGY - BIOTECH THREE [address] [place] [address], from Last 3 Months or Most Recently Relevant to Health Maintenance Insurance [employer] Advance Directives Documents on File Type Date Recorded Patient Catering Server Expl anation Health Care Proxy 02/07/2023 6:19 PM 02-06 Health Care Proxy 02/06/2023 2:21 PM 02-06 * Presumed Full Code (Latest Code Status on File) Date Activated Date Inactivated Comments 02/05/2023 9:43 PM 02/07/2023 4:00 PM Care Teams Boiler House Supervisor Relationship Specialty Start Date End Date Les Wills [address] [place] [address] [place] [address] PCP - General Internal Medicine 01/24/19
[2025-03-24 13:00] VITALS: BP 138/70
== END 2025-03-24 12:18 | disposition home or self-care (01) ==
LOC: HO.HMCHD 11:34
PROVIDERS: PCP Nurse Practitioner Family; Visit Provider Physician Assistant
DX: I10 Essential (primary) hypertension (principal); I25.10 Atherosclerotic heart disease of native coronary artery without angina pectoris; H92.02 Otalgia, left ear; G89.29 Other chronic pain; M51.16 Intervertebral disc disorders with radiculopathy, lumbar region

== ENCOUNTER → 2025-03-31 07:51 | Outpatient (REF) | payer OTHER, SELFPAY ==
[2025-03-19 09:14] VITALS: BP 112/70; BP 126/72; BMI 27.8
--- NOTE | ~2025-03-31 | NM_ITS ---
EXERCISE MYOCARDIAL PERFUSION STUDY INDICATION: Diffuse atherosclerotic cardiovascular disease to evaluate for myocardial ischemia TECHNIQUE: The patient was brought in for an exercise perfusion study on March 31, 2025. Patient performed exercise as per Federico protocol and was injected 30 mCi of sestamibi once target heart rate was achieved. Images were obtained using the SPECT gamma camera interlaced with the gating device. Images were obtained in supine position. Resting perfusion study was performed on April 02, 2025. Patient was administered 30 mCi of sestamibi intravenously at rest. Images were then obtained in supine position. Images obtained without without CT attenuation. Total DLP 67 mGy-cm. Images were processed with the software and compared side to side in short axis, horizontal long axis and vertical long axis views. FINDINGS: Raw images were reviewed The stress perfusion study showed nonattenuated images show mildly reduced uptake in the distal lateral wall of the LV myocardium. Attenuated corrected images show mildly to moderately reduced uptake in the apex of the LV myocardium. The gated study shows normal LV systolic function with calculated LVEF of 73%. LV cavity is normal in size. The gated study shows normal systolic wall thickening and contraction of segments. Resting study shows no change in perfusion pattern compared to stress perfusion study. Gating at rest reveals normal systolic wall motion with ejection fraction at 60%. The findings are consistent with no reversible defect suggestive of ischemia. NM/NM cardiolite stress test IMPRESSION: 1. Myocardial perfusion imaging study shows normal myocardial perfusion. 2. Gated LVEF is 73%. 3. Transient ischemic dilatation not present. EKG revealed negative for ischemia. Electronically signed by: Scot Salas MD 04/02/2025 03:22 PM EDT
--- OUTSIDE RECORDS SUMMARY | 2025-03-31 07:54 | XMS_ITS | Clinical Summary ---
Author Organization [facility] Address [address] [place] [address] Care Team Providers Care Line Lead Name Role Phone Les Wills Primary Care Provider [phone] Allergies No known active allergies Medications cholecalciferol [...] of Health Annual Screening 09/25/2024 Influenza Vaccine (#1) 2025 2, 06/30/2022, 06/29/2021, Additional history exists RSV Vaccine (60+ years old and patients) (1 - 1-dose 75+ series) 2036 Zoster Vaccines Completed 09/27/2022, 07/11/2022 Hepatitis B Vaccines Aged Out No long er eligible based on patient's age to complete this topic Procedures * Due to [facility] law, this organization might not be sharing negative HIV tests. Procedure Name Priority Date/Time Associated Diagnosis Comments PAP W/REFLEX HPV, CONVERSION Routine 12/04/2006 9:57 AM EDT from Last 3 Months or Most Recently Relevant to Health Maintenance Results * Due to [employer] law, this organization might not be sharing negative HIV tests. * Pap w/Reflex HPV (12/04/2006 9:57 AM EDT) Path Procedure TPGA ([id number]) 1 Edited by: [id number] [address] [facility] ANATOMIC PATHOLOGY - BIOTECH THREE Specimen Labeled As: 1 CERVICAL/ENDOCERVI MINERVA CYTO MATERIAL - Edited by: [id number] JOON [facility] ANATOMIC PATHOLOGY - BIOTECH THREE Diagnosis ThinPrep [...] test was examined in accordance with the [facility] Cytopathology Laboratory written policy. This Pap test was examined by the ThinPrep Imaging System, [employer], [place], [place]. Edited by: [id number] [facility] ANATOMIC PATHOLOGY - BIOTECH THREE Gynecologic Clinical Data Specimen source:, THINPREP (CERVICAL AND ENDOCERVICAL) [facility] ANATOMIC PATHOLOGY - BIOTECH THREE Gynecologic Clinical Data First date of LMP:, 3 YRS AGO [facility] ANATOMIC PATHOLOGY - BIOTECH THREE Gynecologic Clinical Data Months/years post menopause:, Y [facility] ANATOMIC PATHOLOGY - BIOTECH THREE Marker 1 MM,CINDY TABOR [facility] ANATOMIC PATHOLOGY - BIOTECH THREE Marker 2 NILM,NILM [facility] ANATOMIC PATHOLOGY - BIOTECH THREE Cc Results To KIRAN LONG [id number] [facility] ANATOMIC PATHOLOGY - BIOTECH THREE Signature REPORT SIGNED: CINDY TABOR 12/07/06 [facility] ANATOMIC PATHOLOGY - BIOTECH THREE Sign Out Audit SHARONACINDY [id number] [place] [id number] [id number] [facility] ANATOMIC PATHOLOGY - BIOTECH THREE Cytology / Unknown 7 9:57 AM EDT 12/05/2006 9:57 AM EDT Tien Mayorga MD LAB HISTORICAL RESULTS Jennifer ramos Result [facility] ANATOMIC PATHOLOGY - BIOTECH THREE [address] [place] [address], from Last 3 Months or Most Recently Relevant to Health Maintenance Insurance [employer] Advance Directives Documents on File Type Date Recorded Patient Road Marker Expl anation Health Care Proxy 02/07/2023 6:19 PM 02-06 Health Care Proxy 02/06/2023 2:21 PM 02-06 * Presumed Full Code (Latest Code Status on File) Date Activated Date Inactivated Comments 02/05/2023 9:43 PM 02/07/2023 4:00 PM Care Teams Line Lead Relationship Specialty Start Date End Date Les Wills [address] [place] [address] [place] [address] PCP - General Internal Medicine 01/24/19
--- NOTE | 2025-03-31 07:55 | CA_ITS ---
Acquisition Time: 2025-03-31 08:04:47 Total Exercise Time: 00:05:30 Test Indications: CAD Medications: AMLODIPINE ASA ATORVASTATIN HCTZ LOSARTAN METOPROLOL OMEPRAZOLE Protocol: QUENTIN Max HR: 139 BPM 88% of Pred: 157 BPM Max BP: 164/72 mmHG Max Work Load: 7.0 METS Exercise stress test with exercise 5 mins 30 secs of Quentin Protocol, achieving 88% MPHR, with reports of mild SOB, no chest pain, with frequent PACs and PVCs, few vent couplets, with normotensive response to exercise. Without EKG changes meeting criteria for ischemia. In recovery, breathing returned to baseline. Nuclear images pending. Test reviewed with Dr. Cagle. Referred By: Scot Salas Electronically Signed By: Jovanny Cannon
== END ==
LOC: HO.CARD 07:51
PROVIDERS: PCP Nurse Practitioner Family; Visit Provider Internal Medicine Cardiovascular Disease
DX: I10 Essential (primary) hypertension (principal); I25.10 Atherosclerotic heart disease of native coronary artery without angina pectoris
CPT/HCPCS: 78452; 93017; A9500

== ENCOUNTER → 2025-03-31 07:55 | Outpatient (BNV) | payer OTHER, SELFPAY ==
[2025-03-19 09:14] VITALS: BP 112/70; BP 126/72; BMI 27.8
== END ==
PROVIDERS: PCP Nurse Practitioner Family
DX: R06.02 Shortness of breath (principal); I49.1 Atrial premature depolarization; I49.3 Ventricular premature depolarization
CPT/HCPCS: 78452; 93016; 93018

== ENCOUNTER 2025-05-22 07:35 | Outpatient (AMB) | payer OTHER, SELFPAY ==
[2025-05-07 11:15] VITALS: BP 112/70; BP 126/72; BMI 27.8
--- NOTE | 2025-05-22 07:38 | A.OFFVIS_ITS ---
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 Currently not sexually active. Denies any vaginal dryness or irritation. STI testing offered; she declines. Attempting to eat a healthy diet with calcium and vitamin D and stays active with exercise. Last pap smear; 2023, negative. Last mammogram; 2024. Colonoscopy is UTD. FH colon and breast cancer. [facility] Medical History Chronic left ear pain Skin cancer GERD (gastroesophageal reflux disease) Habitual snoring Elevated cholesterol On anticoagulant therapy On beta ramez at home CAD (coronary artery disease) Exertional angina Lichen sclerosus of vulva COVID-19 vaccine series completed Infection of tooth Family history of complication of anesthesia Osteoarthritis Hypertension Surgical History Stented coronary artery H/O arthroscopic knee surgery History of fusion of cervical spine History of back surgery H/O colonoscopy (~07/28/23) Hx of tubal ligation Hx of tonsillectomy Family History Mother Colon cancer History of breast cancer Father Hypertension CVD (cardiovascular disease) Stroke Social History Housing Other:: mobile home Are you a primary resident care associate to a significant other at home: No Do you presently have visiting nurse or other home services: No Alcohol intake: current Alcohol intake frequency: a few times a week Patient Tobacco Use Status: Former Tobacco user Tobacco use type: Cigarette Years Smoked: 30 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al status: employed 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: rt handed/[employer] employee Sexual orientation: Straight/Heterosexual Gender identity: Female Female Reproductive History Menstrual Age of Menarche: 14 control method: permanent sterilization Permanent Sterilization: BTL Total pregnancies: 3 Full term: 1 Number of Living Children: 1 Ab induced: 1 Ab spontaneous: 1 Date of last pap smear: 05/01/24 (neg pap and hpv) Date of Mammogram: 12/17/24 (Birad 1) Review of Systems Const All systems reviewed & are unremarkable except as noted in HPI and below Reports as per HPI Eyes Reports no additional complaints ENT Reports no additional complaints Card Reports no additional complaints Resp Reports no additional complaints GI Reports as per HPI and Reports no additional complaints Reports as per HPI Musc Reports no additional complaints Skin/Breast Reports as per HPI Neuro Reports no additional complaints Psych Reports no additional complaints Endo Reports no additional complaints Wilmer/Lymph Reports no additional complaints Aller/Immun Reports no additional complaints Physical Exam Vital Signs: Last Vital Signs BP 124/74 05/22/25 07:40 BMI result Body Mass Index 28.6 Const General: cooperative, healthy appearing, no acute distress, well developed and alert Orientation/consciousness: patient oriented x3 HEENT Head: Yes normal to inspection Eyes General: appearance normal, both eyes and all related structures Neck Neck: Yes normal visual inspection Thyroid: Thyroid normal Chest Chest palpation & inspection: normal inspection of the chest and other (no puckering, dimpling, peau de orange, retraction, discharge, masses) Breast/axilla inspection: normal inspection of the breasts Breast/axilla palpation: normal palpation of the breasts Resp Effort & Inspection: normal respiratory effort GI Inspection: Yes normal to inspection Palpation (GI): Soft to palpation Rectal Exam - Female: deferred General: Yes bladder normal to palpation External Female Exam: normal external appearance (No excoriations, lesions, fissures or erythema, areas of hypopigmentation ) and normal appearance of the urethra Speculum Exam - Vagina: normal appearance of the vagina, normal palpation and normal vaginal discharge Speculum Exam - Cervix: normal appearance of the cervix and normal palpation Bimanual exam- vagina & uterus: normal bimanual exam, normal palpation, uterine size normal, bladder normal to palpation, normal palpation and non-tender Bimanual Exam- Adnexa, other: no masses Skin General skin exam: no rashes or lesions noted Rashes: no rashes Neuro General: patient oriented x3 Cognition (Neuro): normal cognition Extrem General: Yes normal to inspection Psych Attitude: cooperative Thought process: Normal thought process present Assessment & Plan Assessment & Plan (1) Encounter for well woman exam with routine gynecological exam: Code(s): Z01.419 - Encounter for gynecological examination (general) (routine) without abnormal findings Category: Medical Plan: Discussed: Current recommendations for pap smears per ASCCP guidelines. Breast awareness, periodic self breast exams and yearly mammogram. Maintain a healthy lifestyle, well balanced diet including Calcium 1,200 mg and Vitamin D 600 IU daily, and routine exercise. Contact the office with any postmenopausal bleeding. Patient verbalizes understanding and agrees to the plan of care. She was given opportunity to ask questions and all questions were answered to the best of my ability. RTO in 1 year for annual quarter inspector exam. This note is constructed using voice recognition software. While every effort has been made to ensure accuracy, front end architect errors may have been included. (2) Lichen sclerosus of vulva: Code(s): N90.4 - Leukoplakia of vulva Category: Medical Plan: Discuss treatment plan to continue with the same medication and usage. The patient expressed understanding and agreement with the plan of care. All of her questions and concerns were addressed to the best of my ability. Medications: Refilled hydrocortisone valerate 0.2% use 1-2 times a week as directed 1 appl topical DAILY PRN 45 grams 1RF itching Coding Level of Care Code Est Pt Prev Care 40-64y(46179) Diagnoses Encounter for well woman exam with routine gynecological exam Z01.419 Lichen sclerosus of vulva N90.4
--- OUTSIDE RECORDS SUMMARY | 2025-05-22 07:38 | XMS_ITS | Clinical Summary ---
Author Organization [facility] Address [address] [place] [address] Care Team Providers Care Client Leader Name Role Phone Les Wills Primary Care Provider [phone] Allergies No known active allergies Medications cholecalciferol [...] complete this topic Procedures * Due to [facility] law, this organization might not be sharing negative HIV tests. Procedure Name Priority Date/Time Associated Diagnosis Comments PAP W/REFLEX HPV, CONVERSION Routine 12/04/2006 9:57 AM EDT from Last 3 Months or Most Recently Relevant to Health Maintenance Results * Due to [place] [employer] law, this organization might not be sharing negative HIV tests. * Pap w/Reflex HPV (12/04/2006 9:57 AM EDT) Path Procedure TPGA ([id number]) 1 Edited by: [id number] [address] [facility] ANATOMIC PATHOLOGY - BIOTECH THREE Specimen Labeled As: 1 CERVICAL/ENDOCERVI MINERVA CYTO MATERIAL - Edited by: [id number] JOON [facility] ANATOMIC PATHOLOGY - BIOTECH THREE [...] test was examined in accordance with the [facility] Cytopathology Laboratory written policy. This Pap test was examined by the ThinPrep Imaging System, [employer], [place], [place]. Edited by: [id number] [facility] ANATOMIC PATHOLOGY - BIOTECH THREE Gynecologic Clinical Data Specimen source:, THINPREP (CERVICAL AND ENDOCERVICAL) [facility] ANATOMIC PATHOLOGY - BIOTECH THREE Gynecologic Clinical Data First date of LMP:, 3 YRS AGO [facility] ANATOMIC PATHOLOGY - BIOTECH THREE Gynecologic Clinical Data Months/years post menopause:, Y [facility] ANATOMIC PATHOLOGY - BIOTECH THREE Marker 1 MM,CINDY TABOR [facility] ANATOMIC PATHOLOGY - BIOTECH THREE Marker 2 NILM,NILM [facility] ANATOMIC PATHOLOGY - BIOTECH THREE Cc Results To KIRAN OLNG [id number] [facility] ANATOMIC PATHOLOGY - BIOTECH THREE Signature REPORT SIGNED: CINDY TABOR 12/07/06 [facility] ANATOMIC PATHOLOGY - BIOTECH THREE Sign Out Audit SHARONACINDY [id number] [place] [id number] [facility] ANATOMIC PATHOLOGY - BIOTECH THREE Cytology / Unknown 7 9:57 AM EDT 12/05/2006 9:57 AM EDT Tien Mayorga MD LAB HISTORICAL RESULTS Jennifer ramos Result [facility] ANATOMIC PATHOLOGY - BIOTECH THREE [address] [place] [address], from Last 3 Months or Most Recently Relevant to Health Maintenance Insurance [employer] Advance Directives Documents on File Type Date Recorded Patient 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
[2025-05-22 07:40] VITALS: BP 124/74; BMI 28.6
== END 2025-05-22 08:08 | disposition home or self-care (01) ==
LOC: HO.HWS 07:35
PROVIDERS: PCP Physician Assistant; Visit Provider Advanced Practice Midwife
DX: Z01.419 Encounter for gynecological examination (general) (routine) without abnormal findings (principal); N90.4 Leukoplakia of vulva
CPT/HCPCS: 99396; 99459

== ENCOUNTER 2025-06-16 07:26 | Outpatient (AMB) | payer OTHER, SELFPAY ==
[2025-05-07 11:15] VITALS: BP 112/70; BP 126/72; BMI 27.8
--- OUTSIDE RECORDS SUMMARY | 2025-06-16 07:29 | XMS_ITS | Clinical Summary ---
Author Organization [facility] Address [address] [place] [address] Care Team Providers Care Underwriter Mortgage Loan Name Role Phone Les Wills Primary Care Provider [phone] Allergies No known active allergies Medications cholecalciferol [...] HPV and Pap Smear 12/05/2011 12/04/2006, 09/10/2002 Alcohol/Substance Use Screening 09/25/2024 Depression Screening and Follow-Up 09/25/2024 Social Drivers of Health Annual Screening 09/25/2024 COVID-19 Vaccine ( season) 2025 07/11/2022, 04/14/2022, 06/23/2021, Additional history exists Influenza Vaccine (#1) 2025 2, 06/30/2022, 06/29/2021, Additional history exists RSV Vaccine (60+ years old and patients) (1 - 1-dose 75+ series) 2036 Zoster Vaccines Completed 09/27/2022, 07/11/2022 Hepatitis B Vaccines Aged Out No long er eligible based on patient's age to complete this topic Procedures * Due to [facility] law, this organization might not be sharing negative HIV tests. Procedure Name Priority Date/Time Associated Diagnosis Comments PAP W/REFLEX HPV, CONVERSION Routine 12/04/2006 9:57 AM EDT from Last 3 Months or Most Recently Relevant to Health Maintenance Results * Due to [place] [employer] law, this organization might not be sharing negative HIV tests. * Pap w/Reflex HPV (12/04/2006 9:57 AM EDT) Path Procedure TPGA (180449) 1 Edited by: [id number] [facility] ANATOMIC PATHOLOGY - BIOTECH THREE Specimen Labeled As: 1 CERVICAL/ENDOCERVI MINERVA CYTO MATERIAL - Edited by: [id number] JOON [facility] ANATOMIC PATHOLOGY - BIOTECH THREE [...] test was examined in accordance with the [facility] Cytopathology Laboratory written policy. This Pap test was examined by the ThinPrep Imaging System, [employer], [place], [place]. Edited by: [id number] [facility] ANATOMIC PATHOLOGY - BIOTECH THREE Gynecologic Clinical Data Specimen source:, THINPREP (CERVICAL AND ENDOCERVICAL) [facility] ANATOMIC PATHOLOGY - BIOTECH THREE Gynecologic Clinical Data First date of LMP:, 3 YRS AGO [facility] ANATOMIC PATHOLOGY - BIOTECH THREE Gynecologic Clinical Data Months/years post menopause:, Y [facility] ANATOMIC PATHOLOGY - BIOTECH THREE Marker 1 MM,CINDY TABOR [facility] ANATOMIC PATHOLOGY - BIOTECH THREE Marker 2 NILM,NILM [facility] ANATOMIC PATHOLOGY - BIOTECH THREE Cc Results To KIRAN LONG [id number] [facility] ANATOMIC PATHOLOGY - BIOTECH THREE Signature REPORT SIGNED: CINDY TABOR 12/07/06 [facility] ANATOMIC PATHOLOGY - BIOTECH THREE Sign Out Audit SHARONACINDY [id number] [place]AL [place] [id number] [facility] ANATOMIC PATHOLOGY - BIOTECH THREE Cytology / Unknown 7 9:57 AM EDT 12/05/2006 9:57 AM EDT Tien Mayorga MD LAB HISTORICAL RESULTS Jennifer ramos Result [facility] ANATOMIC PATHOLOGY - BIOTECH THREE [address] [place] [address], from Last 3 Months or Most Recently Relevant to Health Maintenance Insurance [employer] [place] [address] Advance Directives Documents on File Type Date Recorded Patient Selling Manager Expl anation Health Care Proxy 02/07/2023 6:19 PM 02-06 Health Care Proxy 02/06/2023 2:21 PM 02-06 * Presumed Full Code (Latest Code Status on File) Date Activated Date Inactivated Comments 02/05/2023 9:43 PM 02/07/2023 4:00 PM Care Teams Underwriter Mortgage Loan Relationship Specialty Start Date End Date Les Wills [address] [place] [address] [place] [address] PCP - General Internal Medicine 01/24/19
[2025-06-16 07:41] VITALS: BP 144/80; PULSE 70; RESP 15; TEMP 36.9; O2SAT 98; BMI 28.7
--- NOTE | 2025-06-16 07:41 | AM.OFFWIN_ITS ---
Intake Vital Signs 06/16/25 07:41 Height 5 ft 6 in Weight 178 lb BMI 28.7 BP 144/80 H Blood Pressure Location Rt brachial Position Sitting Respiration 15 Pulse 70 Pulse Source Pulse Oximeter Temp 98.4 F Temp Source Oral Pulse Oximetry (%) 98 Oxygen Delivery Method Room Air Intake Visit Reasons: ep thoracic pain Intake Note: Pt is here today c/o thoracic pain hurts with movement since Monday no injury noted Patient Tobacco Use Status: Former Tobacco user Allergies morphine (Morphine) Adverse Reaction (Intermediate, Verified 06/16/25 07:42) NAUSEA HPI HPI Comments History of Present Illness Details 65 y/o Female patient who presents to [facility] walk in clinic with c/o Chest Wall and Epigastric region Pain with Movement since Monday morning. She does have h/o GERD and takes Omeprazole 20 mg Daily. Denies SOB, CP, Wheezing or Cough. Denies Fevers, chills, Nausea or vomiting. [facility] Medical History (Updated 06/16/25 @ 08:12 by Payal Snow NP) GERD without esophagitis Chronic left ear pain Skin cancer GERD (gastroesophageal reflux disease) Habitual snoring Elevated cholesterol On anticoagulant therapy On beta ramez at home CAD (coronary artery disease) Exertional angina Lichen sclerosus of vulva COVID-19 vaccine series completed Infection of tooth Family history of complication of anesthesia Osteoarthritis Hypertension Surgical History Stented coronary artery H/O arthroscopic knee surgery History of fusion of cervical spine History of back surgery H/O colonoscopy (~07/28/23) Hx of tubal ligation Hx of tonsillectomy Family History Mother Colon cancer History of breast cancer Father Hypertension CVD (cardiovascular disease) Stroke Social History Housing Other:: mobile home Are you a primary housekeeper child care to a significant other at home: No Do you presently have visiting nurse or other home services: No Alcohol intake: current Alcohol intake frequency: a few times a week Patient Tobacco Use Status: Former Tobacco user Tobacco use type: Cigarette Years Smoked: 30 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al status: employed 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: rt [employer] employee Sexual orientation: Straight/Heterosexual Gender identity: Female Female Reproductive History Menstrual Age of Menarche: 14 Review of Systems Const All systems reviewed & are unremarkable except as noted in HPI and below Physical Exam Vital Signs: Last Vital Signs Temp 98.4 F 06/16/25 07:41 Pulse 70 06/16/25 07:41 Resp 15 06/16/25 07:41 BP 144/80 H 06/16/25 07:41 Pulse Ox 98 06/16/25 07:41 Oxygen Delivery Method Room Air 06/16/25 07:41 BMI result Body Mass Index 28.7 Const General: comfortable and no acute distress Nutritional Appearance: overweight Orientation/consciousness: patient oriented x3 Resp Effort & Inspection: normal respiratory effort and able to speak in complete sentences Auscultation: clear to auscultation bilaterally, no crackles, no rales, no rhonchi and no wheezes Cardio Heart sounds: S1 normal heart sound present and S2 normal heart sound present Neuro General: patient oriented x3, gait normal and moves all extremities Psych Speech and movement: Normal speech and movement present Assessment & Plan Assessment & Plan (1) GERD without esophagitis: Code(s): K21.9 - Gastro-esophageal reflux disease without esophagitis Plan: Pain is not reproducible on Examination today. No chest wall or Thoracic back tenderness. She does have h/o GERD - advised to increase Omeprazole BID and Added Famotidine 20 mg at Bedtime. Recomm BLAND Diet. Medications: New famotidine 20 mg PO BEDTIME 30 tabs 0RF K21.9 - Gastro-esophageal reflux disease without esophagitis Changed From omeprazole 20 mg PO DAILY K21.9 - Gastro-esophageal reflux disease without esophagitis To omeprazole 20 mg PO BID 30 caps 0RF K21.9 - Gastro-esophageal reflux disease without esophagitis Coding Level of Care Code Est Pt Level 4 (22289) Diagnoses GERD without esophagitis K21.9 Time Spent (min) 20
== END 2025-06-16 08:14 | disposition home or self-care (01) ==
PROVIDERS: PCP Physician Assistant; Visit Provider Nurse Practitioner Family
DX: K21.9 Gastro-esophageal reflux disease without esophagitis (principal)

== ENCOUNTER 2025-07-15 14:49 | Outpatient (AMB) | payer OTHER, SELFPAY ==
[2025-05-07 11:15] VITALS: BP 112/70; BP 126/72; BMI 27.8
--- NOTE | 2025-07-15 15:04 | A.OFFVIS_ITS ---
Vital Signs 07/15/25 15:06 Height 5 ft 6 in Weight 174 lb 2.643 oz BMI 28.1 BP 120/80 Blood Pressure Location Lt brachial Position Sitting Pulse 65 Intake Visit Reasons: 6 mth f/up Intake Note: 6 month follow-up with ekg Cosmetologist Required: No Allergies morphine (Morphine) Adverse Reaction (Intermediate, Verified 06/16/25 07:42) NAUSEA Medication List - Last Reconciled 07/15/25 by Scot Salas MD amlodipine 10 mg PO DAILY aspirin (Ecotrin Low Strength) 81 mg PO DAILY atorvastatin 80 mg PO BEDTIME coenzyme Q10 (CoQ-10) 100 mg PO DAILY famotidine 20 mg PO BEDTIME hydrochlorothiazide 25 mg PO DAILY hydrocortisone valerate 0.2% 1 appl topical DAILY PRN losartan 100 mg PO DAILY metoprolol succinate ER 100 mg PO DAILY omeprazole 20 mg PO BID HPI Comments Details: Barb comes for follow-up. She has started take amlodipine 10 mg as she notice that after reducing the amlodipine her blood pressure started going up again. A blood pressure is not better controlled but she notices leg swelling and discomfort in his legs after she has been up and around and walking for long period time. She notices more swelling in his left foot and around the ankle. This bothers her. She has no cardiac symptoms with exertion. Denies any exe rtional chest pain or shortness of breath. Denies any orthopnea, PND, leg edema. No lightheadedness, syncope. [facility] Medical History (Updated 06/20/25 @ 13:15 by CHUCKY Ott) GERD without esophagitis Chronic left ear pain Skin cancer GERD (gastroesophageal reflux disease) Habitual snoring Elevated cholesterol On anticoagulant therapy On beta ramez at home CAD (coronary artery disease) Exertional angina Lichen sclerosus of vulva COVID-19 vaccine series completed Infection of tooth Family history of complication of anesthesia Osteoarthritis Hypertension Surgical History Stented coronary artery H/O arthroscopic knee surgery History of fusion of cervical spine History of back surgery H/O colonoscopy (~07/28/23) Hx of tubal ligation Hx of tonsillectomy Family History Mother Colon cancer History of breast cancer Father Hypertension CVD (cardiovascular disease) Stroke Social History Housing Other:: mobile home Are you a primary ocular care technologist to a significant other at home: No Do you presently have visiting nurse or other home services: No Alcohol intake: current Alcohol intake frequency: a few times a week Patient Tobacco Use Status: Former Tobacco user Tobacco use type: Cigarette Years Smoked: 30 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al status: employed 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: rt 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/[employer] employee Sexual orientation: Straight/Heterosexual Gender identity: Female Female Reproductive History Menstrual Age of Menarche: 14 Review of Systems Const Denies chills, Denies fatigue, Denies fever(s), Denies frequent falls, Denies weakness, Denies weight gain and Denies weight loss ENT Denies dizziness Card Denies chest pain, Denies leg edema, Denies lightheadedness, Denies palpitations, Denies dyspnea, Denies dyspnea on exertion, Denies orthopnea and Denies other (loss of consciousness) Resp Denies cough, Denies dyspnea and Denies dyspnea on exertion GI Denies hematochezia and Denies change in stool character Musc Denies abnormal gait, Denies muscle weakness, Denies numbness, Denies radiating pain into limb and Denies tingling Neuro Denies abnormal gait, Denies dizziness, Denies frequent falls, Denies numbness, Denies tingling and Denies weakness Endo Denies fatigue and Denies palpitations Physical Exam Vital Signs: Last Vital Signs Pulse 65 07/15/25 15:06 BP 120/80 07/15/25 15:06 BMI result Body Mass Index 28.1 Const General: cooperative, comfortable, no acute distress, well developed, alert, awake and well groomed Nutritional Appearance: overweight Orientation/consciousness: patient oriented x3 Limitations: no limitations HEENT Head: Yes normocephalic and Yes atraumatic Neck Neck: Yes trachea midline, Yes supple and Yes no JVD Chest Chest palpation & inspection: normal inspection of the chest Resp Effort & Inspection: normal respiratory effort Auscultation: clear to auscultation bilaterally Cardio Jugular venous distension: no JVD Palpation: normal PMI Rate: regular rate Rhythm: regular rhythm Heart sounds: S1 normal heart sound present, S2 normal heart sound present, no click, no gallops and Murmur heart sound present systolic early GI Auscultation: normal bowel sounds Skin General skin exam: no rashes or lesions noted Neuro General: patient oriented x3 and no focal motor deficits Extrem General: No clubbing, No cyanosis and Yes edema (Plus one) Psych Appearance: grossly normal Office Procedures EKG Details: EKG shows normal sinus rhythm with isolated PVCs with poor R-wave progression most likely due to lead placement [id number], Complete Assessment & Plan Assessment & Plan (1) CAD (coronary artery disease): Code(s): I25.10 - Atherosclerotic heart disease of [place] coronary artery without angina pectoris Category: Medical Plan: CAD with prior stenting with no recurrent symptoms of angina at this point time. Continue aggressive medical therapy. Continue low-dose aspirin therapy for life. Continue high-intensity statin therapy with target goal LDL less than 60 mg/dL. Advise at least annual lipid check. Continue aggressive blood pressure control, see below. Encouraged to maintain activity level as tolerated. Advised to call me with any new symptoms. (2) Hypertension: Code(s): I10 - Essential (primary) hypertension Category: Medical Plan: Hypertension which is difficult control and has side effects to higher dose of amlodipine therapy with leg edema. Will reduce amlodipine to 5 mg daily. Combined losartan hydrochlorothiazide to 1 pill and add Aldactone 25 mg to her regimen. Obtain BMP in 7-10 days to assess potassium level. Also advised to monitor blood pressure at home maintain a log. Stress mitigation strategies was discussed. Low-salt diet was discussed. Further treatment based on response to Aldactone therapy. Will follow up in the clinic in 6 months time, sooner PRN. Thank you for allowing me to partake in her care Medications: New amlodipine 5 mg PO DAILY 30 tabs 2RF losartan-hydrochlorothiazide 100-25 mg 1 tab PO DAILY 30 tabs 2RF spironolactone (Aldactone) 25 mg PO DAILY 30 tabs 2RF Coding Level of Care Code Est Pt Level 4 (05129) Complex EM visit Add On G2211 Diagnoses CAD (coronary artery disease) I25.10 Hypertension I10 CPT Codes EKG - CPT: 15626-[id number], Complete ([id number])
[2025-07-15 15:06] VITALS: BP 120/80; PULSE 65; BMI 28.1
--- OUTSIDE RECORDS SUMMARY | 2025-07-15 20:02 | XMS_ITS | Clinical Summary ---
Author Organization [facility] Address [address] [place] [address] Care Team Providers Care Processing Manager Name Role Phone Les Wills Primary Care Provider [phone] Allergies No known active allergies Medications cholecalciferol [...] complete this topic Procedures * Due to [facility] law, this organization might not be sharing negative HIV tests. Procedure Name Priority Date/Time Associated Diagnosis Comments PAP W/REFLEX HPV, CONVERSION Routine 12/04/2006 9:57 AM EDT from Last 3 Months or Most Recently Relevant to Health Maintenance Results * Due to [place] [employer] law, this organization might not be sharing negative HIV tests. * Pap w/Reflex HPV (12/04/2006 9:57 AM EDT) Path Procedure TPGA ([id number]) 1 Edited by: [id number] [facility] ANATOMIC PATHOLOGY - BIOTECH THREE Specimen Labeled As: 1 CERVICAL/ENDOCERVI MINERVA CYTO MATERIAL - Edited by: [id number] JOON [facility] ANATOMIC PATHOLOGY - BIOTECH THREE Diagnosis [...] test was examined in accordance with the [facility] Cytopathology Laboratory written policy. This Pap test was examined by the ThinPrep Imaging System, [employer] [place], [place]. Edited by: [id number] [facility] ANATOMIC PATHOLOGY - BIOTECH THREE Gynecologic Clinical Data Specimen source:, THINPREP (CERVICAL AND ENDOCERVICAL) [facility] ANATOMIC PATHOLOGY - BIOTECH THREE Gynecologic Clinical Data First date of LMP:, 3 YRS AGO [facility] ANATOMIC PATHOLOGY - BIOTECH THREE Gynecologic Clinical Data Months/years post menopause:, Y [facility] ANATOMIC PATHOLOGY - BIOTECH THREE Marker 1 MM,CINDY TABOR [facility] ANATOMIC PATHOLOGY - BIOTECH THREE Marker 2 NILM,NILM [facility] ANATOMIC PATHOLOGY - BIOTECH THREE Cc Results To KIRAN LONG [id number] [facility] ANATOMIC PATHOLOGY - BIOTECH THREE Signature REPORT SIGNED: CINDY TABOR 12/07/06 [facility] ANATOMIC PATHOLOGY - BIOTECH THREE Sign Out Audit SHARONACINDY [id number] FINAL [place] [id number] [facility] ANATOMIC PATHOLOGY - BIOTECH THREE Cytology / Unknown 7 9:57 AM EDT 12/05/2006 9:57 AM EDT Tien Mayorga MD LAB HISTORICAL RESULTS Jennifer ramos Result [facility] ANATOMIC PATHOLOGY - BIOTECH THREE [address] [place] [address], from Last 3 Months or Most Recently Relevant to Health Maintenance Insurance [employer] Advance Directives Documents on File Type Date Recorded Patient 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
== END 2025-07-15 15:33 | disposition home or self-care (01) ==
LOC: HO.HCS 14:51
PROVIDERS: PCP Registered Nurse; Visit Provider Internal Medicine Cardiovascular Disease
DX: I25.10 Atherosclerotic heart disease of native coronary artery without angina pectoris (principal); I10 Essential (primary) hypertension
CPT/HCPCS: 93010; 99214

== ENCOUNTER → 2025-07-15 14:49 | Outpatient (BNVA) | payer OTHER, SELFPAY ==
[2025-05-07 11:15] VITALS: BP 112/70; BP 126/72; BMI 27.8
== END ==
PROVIDERS: PCP Registered Nurse; Visit Provider Internal Medicine Cardiovascular Disease
DX: I25.10 Atherosclerotic heart disease of native coronary artery without angina pectoris (principal)
CPT/HCPCS: 93005

== ENCOUNTER 2025-08-26 13:47 | Outpatient (REF) | payer OTHER, SELFPAY ==
[2025-05-07 11:15] VITALS: BP 112/70; BP 126/72; BMI 27.8
--- OUTSIDE RECORDS SUMMARY | 2025-08-26 15:48 | XMS_ITS | Clinical Summary ---
Author Organization [facility] Address [address] [place] [address] Care Team Providers Care Landscape Specialist Name Role Phone Les Wills Primary Care Provider [phone] Allergies No known active allergies Medications cholecalciferol [...] 2025 2, 06/30/2022, 06/29/2021, Additional history exists COVID-19 Vaccine ( season) 2025 07/11/2022, 04/14/2022, 06/23/2021, Additional history exists RSV Vaccine (60+ years old and patients) (1 - 1-dose 75+ series) 2036 Zoster Vaccines Completed 09/27/2022, 07/11/2022 Hepatitis B Vaccines Aged Out No long er eligible based on patient's age to complete this topic Procedures * Due to [facility] law, this organization might not be sharing negative HIV tests. Procedure Name Priority Date/Time Associated Diagnosis Comments PAP W/REFLEX HPV, CONVERSION Routine 12/04/2006 9:57 AM EDT from Last 3 Months or Most Recently Relevant to Health Maintenance Results * Due to [employer] law, this organization might not be sharing negative HIV tests. * Pap w/Reflex HPV (12/04/2006 9:57 AM EDT) Path Procedure TPGA ([id number]) 1 Edited by: [id number] [facility] Specimen Labeled As: 1 CERVICAL/ENDOCERVI MINERVA CYTO MATERIAL - Edited by: [id number] JOON [facility] Diagnosis [...] test was examined in accordance with the [facility] Cytopathology [facility] written policy. This Pap test was examined by the [facility], [employer], [place], [place]. Edited by: [id number] [facility] - [facility] Gynecologic Clinical Data Specimen source:, THINPREP (CERVICAL AND ENDOCERVICAL) [facility] - [facility] Gynecologic Clinical Data First date of LMP:, 3 YRS AGO [facility] Gynecologic Clinical Data Months/years post menopause:, Y [facility] Marker 1 MM,CINDY TABOR [facility] Marker 2 NILM,NILM [facility] Cc Results To KIRAN LONG [id number] [facility] Signature REPORT SIGNED: CINDY TABOR 12/07/06 [facility] Sign Out Audit SHARONACINDY [id number] FINAL [place] [id number] [facility] Cytology / Unknown 7 9:57 AM EDT 12/05/2006 9:57 AM EDT Tien Mayorga MD LAB HISTORICAL RESULTS Jennifer ramos Result [facility] [address] [place] [address], from Last 3 Months or Most Recently Relevant to Health Maintenance Insurance [employer] Advance Directives Documents on File Type Date Recorded Patient Flower Maker Expl anation Health Care Proxy 02/07/2023 6:19 PM 02-06 Health Care Proxy 02/06/2023 2:21 PM 02-06 * Presumed Full Code (Latest Code Status on File) Date Activated Date Inactivated Comments 02/05/2023 9:43 PM 02/07/2023 4:00 PM Care Teams Landscape Specialist Relationship Specialty Start Date End Date Les Wills [address] [place] [address] [place] [address] PCP - General Internal Medicine 01/24/19
== END 2025-08-26 13:48 | disposition home or self-care (01) ==
LOC: HO.SH 13:47
PROVIDERS: Visit Provider Physician Assistant
DX: H90.3 Sensorineural hearing loss, bilateral (principal)
CPT/HCPCS: 92557; 92567